=== PATIENT | female | born 1985 | race Caucasian/White ===

== ENCOUNTER 2018-02-12 13:48 | Emergency (ER) | payer OTHER, MEDICAID, SELFPAY | END 2018-02-12 17:52 | disposition home or self-care (01) | PROVIDERS: Emergency Provider Internal Medicine; Family Provider Nurse Practitioner Family; PCP Nurse Practitioner Family; Visit Provider Internal Medicine | DX: K62.5 Hemorrhage of anus and rectum (principal); R10.10 Upper abdominal pain, unspecified; R11.0 Nausea | CPT/HCPCS: 74022; 80053; 83605; 83735; 85025; 96361; 96374; 99058; 99284; J2405 ==

== ENCOUNTER → 2018-04-14 13:52 | Outpatient (CLI) | payer OTHER, MEDICAID, SELFPAY ==
--- NOTE | 2018-04-14 | DI.MRI.S_ITS ---
PROCEDURE: MR ANGIO NECK W CON INDICATIONS: VASCULITIS TECHNIQUE: Axial and sagittal TruFISP through the neck. Coronal dynamic MRA after the administration of contrast in the arterial and venous phases, with rotating 3-dimensional maximum intensity projection (MIP) reformats constructed from subtraction images. COMPARISON: None. FINDINGS: Image quality: Limited by patient motion. Carotid system: Great vessels demonstrate conventional anatomy as they arise from the aortic arch. The origins of the common carotid arteries appear normal. The calibers and courses of the common carotid arteries are likewise normal. The carotid bifurcations appear normal bilaterally. The internal carotid arteries are widely patent up to the [place]. Posterior circulation: The origins of the vertebral arteries are unremarkable. The more superior portions of the vertebral arteries demonstrate normal course and caliber. Vertebral arteries join to form a normal appearing basilar artery. Miscellaneous: Subclavian arteries are patent throughout. Pre-contrast images through the neck demonstrate no soft tissue abnormalities. IMPRESSION: Normal MR angiogram of the neck. Any quantitative measurements of stenosis were performed using NASCET criteria. Dictated by: Jaci Hua MD, PhD on 04/14/2018 at 15:00 Approved by: Jaci Hua MD, PhD on 04/14/2018 at 15:03
== END ==
PROVIDERS: Family Provider Psychiatry & Neurology Neurology; PCP Nurse Practitioner Family; Visit Provider Internal Medicine Rheumatology
DX: I77.6 Arteritis, unspecified (principal)
CPT/HCPCS: 70548

== ENCOUNTER → 2018-04-26 15:41 | Outpatient (CLI) | payer OTHER, MEDICAID, SELFPAY ==
--- NOTE | 2018-04-26 | DI.MRI.S_ITS ---
PROCEDURE: MR ANGIO CHEST WO/W CON INDICATIONS: VASCULITIS LIMITED TO SKIN TECHNIQUE: Precontrast axial, coronal, and sagittal TruFISP acquired through the thoracic aorta. Dynamic coronal MRA using Care Bolus timing of the thorax during the administration of contrast, with 3-dimensional maximum intensity projection (MIP) reformats performed. COMPARISON: None. FINDINGS: Image quality: Motion artifact limits evaluation of the ascending thoracic aorta. Thoracic aorta: The thoracic aorta demonstrates normal course and caliber. No annuloaortic ectasia. No neural hematomas or wall thickening. Great vessels: The great vessels demonstrate conventional anatomy of the right from the arch. No stenosis or occlusion. No aneurysmal dilatation. Extravascular structures: A T2 hyperintense lesion is present within the left renal cortex. There is no enhancement associated with this region suggesting the presence of a simple renal cyst. Extravascular tissues are otherwise unremarkable. IMPRESSION: 1. Normal course and caliber of the thoracic aorta. No findings to suggest annuloaortic ectasia, aneurysmal dilatation, or suspicious wall thickening in the setting of large vessel left vasculitis. However, please note that visualization of the ascending thoracic aorta somewhat limited by motion artifact. Dictated by: Vee Bazan M.D. on 04/26/2018 at 15:15 Approved by: Vee Bazan M.D. on 04/26/2018 at 16:03
== END ==
PROVIDERS: Family Provider Psychiatry & Neurology Neurology; PCP Nurse Practitioner Family; Visit Provider Internal Medicine Rheumatology
DX: L95.9 Vasculitis limited to the skin, unspecified (principal)
CPT/HCPCS: C8911; A9579

== ENCOUNTER → 2018-06-17 13:57 | Outpatient (CLI) | payer OTHER, MEDICAID, SELFPAY ==
[2018-06-17 15:21] LABS: Alanine Aminotransferase 15 IU/L (9-52); Albumin Globulin Ratio 0.9 (1.0-2.8); Alkaline Phosphatase 133 U/L (38-126); Aspartate Aminotransferase 18 IU/L (14-36); BUN Creatinine Ratio 13.3 (6-22); Bilirubin Total 0.4 mg/dL (0.2-1.3); Blood Urea Nitrogen 8 mg/dL (7-17); Calcium 9.5 mg/dL (8.4-10.2); Carbon Dioxide 28 mmol/L (22-32); Chloride 98 mmol/L (98-107); Estimated Glomerular Filt Rate > 60.0 mL/min (>60); Globulin 3.5 g/dL (1.7-4.1); Glucose 118 mg/dL (70-100); HEMOLYSIS < 15 (0-50); Potassium 4.2 mmol/L (3.4-5.1); Sodium 137 mmol/L (137-145); Total Protein 6.5 g/dL (6.3-8.2)
== END ==
PROVIDERS: PCP Psychiatry & Neurology Neurology; Visit Provider Internal Medicine Rheumatology
DX: M12.9 Arthropathy, unspecified (principal)
CPT/HCPCS: 36415; 80053

== ENCOUNTER → 2018-06-28 11:15 | Outpatient (CLI) | payer OTHER, MEDICAID, SELFPAY ==
--- NOTE | 2018-06-28 | DI.MRI.S_ITS ---
PROCEDURE: MR PELIS WO/W CON INDICATIONS: PRIMARY OSTEOARTHRITIS OF RIGHT HAND AUTOIMMUNE DI TECHNIQUE: Noncontrast axial and oblique coronal T1 spin echo and STIR through the sacroiliac joints. COMPARISON: None. FINDINGS: Image quality: Diagnostic. Bones: There is mild periarticular edema and enhancement along the left sacroiliac joint as well as mild enhancement in the joint space. There are small areas of effacement of the cortex suggestive of small erosions. There is minimal enhancement in the right sacroiliac joint. No bony ankylosis. There is mild edema and enhancement posteriorly along the posterior iliac bones. Soft tissues: No presacral masses. Visualized bowel loops appear normal in caliber and wall thickness. No pathologic free pelvic fluid. IMPRESSION: 1. Mild periarticular edema and enhancement along the left sacroiliac joint compatible with acute inflammatory changes of sacroiliitis. There are small areas of cortical indistinctness suggestive of erosions. 2. Minimal right sacroiliac joint enhancement suggestive of minimal sacroiliitis. 3. Bilateral mild edema and enhancement along the posterior iliac bones likely represent enthesitis. Dictated by: Jeremiah Rangel M.D. on 06/28/2018 at 16:23 Approved by: Jeremiah Rangel M.D. on 06/28/2018 at 16:47
--- NOTE | 2018-06-28 | DI.MRI.S_ITS ---
PROCEDURE: MR HAND RT WO/W CON INDICATIONS: PRIMARY OSTEOARTHRITIS OF RIGHT HAND AUTOIMMUNE DI TECHNIQUE: Noncontrast coronal and axial T1 spin echo and T2 fast spin echo obtained through the hand and fingers. Post-contrast axial and coronal T1 spin echo with fat saturation through the hand and fingers. COMPARISON: None. FINDINGS: Image quality: There is inhomogeneous fat saturation. Bones: No fractures or dislocations. No definite discrete bony erosion. Synovium: There is periarticular soft tissue thickening with edema and enhancement along the carpus consistent with synovitis. Soft tissues: There is peritendinous edema and enhancement along the extensor tendons compatible with peritendinitis. Mild periarticular edema is noted at the 1st carpometacarpal joint likely degenerative changes. Visualized muscles demonstrate normal bulk and internal signal. IMPRESSION: 1. Periarticular soft tissue thickening with edema and enhancement around the carpus. 2. Peritendinitis along the extensor tendons. 3. The findings are suggestive of an inflammatory arthropathy such as rheumatoid arthritis. No definite discrete bony erosions. Dictated by: Jeremiah Rangel M.D. on 06/28/2018 at 17:03 Approved by: Jeremiah Rangel M.D. on 06/28/2018 at 17:08
== END ==
PROVIDERS: PCP Psychiatry & Neurology Neurology; Visit Provider Internal Medicine Rheumatology
DX: M19.041 Primary osteoarthritis, right hand (principal); M46.1 Sacroiliitis, not elsewhere classified; M77.9 Enthesopathy, unspecified; D89.89 Other specified disorders involving the immune mechanism, not elsewhere classified
CPT/HCPCS: 72197; 73220; A9579

== ENCOUNTER 2018-09-09 15:18 | Inpatient (IN) | payer OTHER, MEDICAID, SELFPAY ==
[2018-09-09] VITALS (11 sets, daily range): BP systolic 105–136; BP diastolic 72–96; PULSE 86–131; RESP 16–25; TEMP 36.7–37.3; O2SAT 95–98; BMI 28.1
--- NOTE | 2018-09-09 15:24 | ED.DIZZY ---
HPI - Dizziness <JOLENE Murphy - Last Filed: 09/09/18 22:00> General Chief Complaint: Dizziness Stated Complaint: FEELING WEIRED GOT REALLY DIZZY Time Seen by Provider: 09/09/18 15:23 Source: patient Mode of arrival: ambulatory Limitations: no limitations History of Present Illness HPI Narrative: 33-year-old female with history of asthma and is a nonsmoker here for complaint of having dizziness and feeling of that she was going to pass out earlier today. She states that yesterday she started feeling like her heart was pounding. She went shopping today and while she was shopping she states that she had a brief. Where she felt like she was going to pass out and had some dizziness. She states that she has had a headache on and off over the past several days. She did not have a headache at this time. She states she has also had left flank pain and felt like she has been having to urinate more often. No chest pain no shortness of breath. No fevers or chills. Positive p.o. intake. She denies any abdominal pain at this time. She does use [place] for chronic pain to her knees and she does state that she did take a [place] earlier today. complaint: dizziness and lightheadedness Related Data Home Medications Medication Instructions Recorded Confirmed acetaminophen [Mapap Arthritis 650 mg PO TID 09/09/18 09/09/18 Pain] albuterol sulfate [ProAir HFA] 1 puff INHALATION PRN PRN 09/09/18 09/09/18 cetirizine 10 mg PO DAILY 09/09/18 09/09/18 pregabalin [Lyrica] 225 mg PO BID 09/09/18 09/09/18 Allergies Allergy/AdvReac Type Severity Reaction Status Date / Time ibuprofen [IBUPROFEN] Allergy Severe severe Verified 09/09/18 15:30 headaches vancomycin [VANCOMYCIN] Allergy Severe martha Verified 09/09/18 15:30 cephalexin [From KEFLEX] Allergy Unknown Verified 09/09/18 15:30 fluoxetine [From PROZAC] Allergy Unknown Verified 09/09/18 15:30 Sulfa (Sulfonamide AdvReac Mild CONSTIPATIO Verified 09/09/18 15:30 Antibiotics) N [SULFA (SULFONAMIDE ANTIBIOTICS)] aspirin [ASPIRIN] AdvReac Unknown SINCE Verified 09/09/18 15:30 CHILDHOOD UNKNOWN NSAIDS (Non-Steroidal AdvReac Gastrointestinal Verified 09/09/18 23:16 Anti-Inflamma Upset Review of Systems <JOLENE Murphy - Last Filed: 09/09/18 22:00> Constitutional Denies chills, Denies fatigue, Denies fever(s), Denies lethargy and Denies weakness Eyes Denies change in vision, Denies eye discharge, Denies irritation and Denies loss of vision ENT Ears, Nose, Mouth, and Throat: Denies change in voice, Denies neck pain, Denies sore throat and Denies throat swelling Cardiovascular Comments: Dizziness and presyncope Respiratory Denies wheezing Gastrointestinal Gastrointestinal: Denies abdominal pain, Denies change in bowel habits, Denies diarrhea, Denies nausea and Denies vomiting Genitourinary Denies hematuria, Reports urinary frequency, Reports flank pain, Denies urinary incontinence and Denies urinary urgency Comments: Left flank pain Musculoskeletal Denies neck pain Integumentary/Breasts Denies pruritus, Denies erythema, Denies rash and Denies wounds Neurologic Denies confusion, Denies loss of vision and Denies weakness Psychiatric Denies anxiety, Denies confusion, Denies depression, Denies homicidal ideation and Denies suicidal ideation Endocrine Denies fatigue and Denies flushing Hematologic/Lymphatic Denies easy bruising Allergic/Immunologic Denies urticaria, Denies throat swelling and Denies wheezing Exam <JOLENE Murphy - Last Filed: 09/09/18 22:00> Initial Vital Signs Initial Vital Signs: Vital Signs Temperature 98.1 F 09/09/18 15:30 Pulse Rate 121 H 09/09/18 15:30 Respiratory Rate 25 H 09/09/18 15:30 Blood Pressure 125/96 H 09/09/18 15:30 Pulse Oximetry 98 09/09/18 15:30 Const General: cooperative and well developed Nutritional Appearance: well nourished Orientation: alert, awake, oriented x3 and not confused [facility] Mouth: oral mucosae normal and moist mucous membranes Eyes Conjunctivae: conjunctivae normal Sclera: sclerae normal Pupils: PERRL EOM: EOM intact bilaterally Resp Effort & Inspection: normal respiratory effort, able to speak in complete sentences, no respiratory distress and no use of accessory muscles Auscultation: clear to auscultation bilaterally, no rales, no rhonchi and no wheezes Cardio Rate: regular rate Rhythm: regular rhythm Heart Sounds: no click, no gallops, no murmurs and no rubs Pulses: normal peripheral pulses GI Inspection: non-distended Palpation: soft, no hepatosplenomegaly, No guarding, No pulsatile mass and No tender Auscultation: normal bowel sounds General: No CVA tenderness Skin General: no rashes or lesions noted, No jaundice and No petechiae Neuro General: alert, oriented x3, gait normal and no focal motor deficits Speech: speech normal <Farnaz Agee DO - Last Filed: 09/10/18 01:11> Initial Vital Signs Initial Vital Signs: Vital Signs Temperature 98.1 F 09/09/18 15:30 Pulse Rate 121 H 09/09/18 15:30 Respiratory Rate 25 H 09/09/18 15:30 Blood Pressure 125/96 H 09/09/18 15:30 Pulse Oximetry 98 09/09/18 15:30 Course <JOLENE Murphy - Last Filed: 09/09/18 22:00> Orders Ordered: ED Orders 09/09/18 16:30 Complete Blood Count AUTO DIFF Stat Comprehensive Metabolic Panel Stat D Dimer Stat Lipase Stat Troponin & CK Cardiac Panel Stat 09/09/18 17:47 CT angio chest PE protocol Stat 09/09/18 17:50 Urine Culture Stat Urine Microscopic Stat 09/09/18 19:42 CT abdomen pelvis w con Stat 09/09/18 20:06 Lactate (Lactic Acid) Stat Procalcitonin Stat 09/09/18 20:14 Blood Culture Stat 09/09/18 21:56 Consult to Physician Routine Hydromorphone HCl (Dilaudid) 2 mg IV Q4HR PRN PRN Reason: Pain, Moderate (4-6) Last Admin: 09/10/18 00:02 Dose: 2 mg Sodium Chloride (Normal Saline 0.9%) 1,000 mls @ 125 mls/hr IV CONT MARISSA Metronidazole (Flagyl) 500 mg in 100 mls @ 100 mls/hr IV Q6H MARISSA Last Admin: 09/10/18 00:11 Dose: 100 mls/hr Ondansetron HCl (Zofran) 4 mg IV Q4HR PRN PRN Reason: Nausea And Vomiting Discontinued Medications Hydromorphone HCl (Dilaudid) 1 mg IV NOW ONE Stop: 09/09/18 19:43 Last Admin: 09/09/18 19:52 Dose: 1 mg Sodium Chloride (Normal Saline 0.9%) 1,000 mls @ 1,000 mls/hr IV BOLUS ONE Stop: 09/09/18 17:08 Last Infusion: 09/09/18 18:02 Dose: 0 mls/hr Admin: 09/09/18 16:43 Dose: 1,000 mls/hr Sodium Chloride (Normal Saline 0.9%) 1,000 mls @ 1,000 mls/hr IV BOLUS ONE Stop: 09/09/18 20:37 Last Admin: 09/09/18 19:52 Dose: 1,000 mls/hr Levofloxacin (Levaquin) 750 mg in 150 mls @ 100 mls/hr IV NOW ONE Stop: 09/09/18 22:41 Last Infusion: 09/09/18 22:26 Dose: 100 mls/hr Admin: 09/09/18 21:28 Dose: 100 mls/hr Metronidazole (Flagyl) 500 mg in 100 mls @ 100 mls/hr IV Q6H MARISSA Ondansetron HCl (Zofran) 4 mg IV NOW ONE Stop: 09/09/18 19:55 Last Admin: 09/09/18 19:55 Dose: 4 mg Vital Signs - 8 hr 09/09/18 18:00 09/09/18 18:20 09/09/18 18:30 Temperature Pulse Rate 101 H 98 H 96 H Respiratory Rate Blood Pressure Blood Pressure [Right Arm] 136/90 125/87 126/83 Pulse Oximetry 09/09/18 19:00 09/09/18 19:30 09/09/18 20:00 Temperature Pulse Rate 96 H 103 H 86 Respiratory Rate Blood Pressure Blood Pressure [Right Arm] 130/89 126/83 117/72 Pulse Oximetry 09/09/18 20:55 09/09/18 22:15 09/09/18 22:30 Temperature 99.2 F Pulse Rate 116 H 131 H 115 H Respiratory Rate 23 16 Blood Pressure 114/72 Blood Pressure [Right Arm] 109/75 112/86 Pulse Oximetry 96 95 97 <Farnaz Agee DO - Last Filed: 09/10/18 01:11> Orders Ordered: ED Orders 09/09/18 16:30 Complete Blood Count AUTO DIFF Stat Comprehensive Metabolic Panel Stat D Dimer Stat Lipase Stat Troponin & CK Cardiac Panel Stat 09/09/18 17:47 CT angio chest PE protocol Stat 09/09/18 17:50 Urine Culture Stat Urine Microscopic Stat 09/09/18 19:42 CT abdomen pelvis w con Stat 09/09/18 20:06 Lactate (Lactic Acid) Stat Procalcitonin Stat 09/09/18 20:14 Blood Culture Stat 09/09/18 21:56 Consult to Physician Routine Hydromorphone HCl (Dilaudid) 2 mg IV Q4HR PRN PRN Reason: Pain, Moderate (4-6) Last Admin: 09/10/18 00:02 Dose: 2 mg Sodium Chloride (Normal Saline 0.9%) 1,000 mls @ 125 mls/hr IV CONT MARISSA Metronidazole (Flagyl) 500 mg in 100 mls @ 100 mls/hr IV Q6H MARISSA Last Admin: 09/10/18 00:11 Dose: 100 mls/hr Ondansetron HCl (Zofran) 4 mg IV Q4HR PRN PRN Reason: Nausea And Vomiting Discontinued Medications Hydromorphone HCl (Dilaudid) 1 mg IV NOW ONE Stop: 09/09/18 19:43 Last Admin: 09/09/18 19:52 Dose: 1 mg Sodium Chloride (Normal Saline 0.9%) 1,000 mls @ 1,000 mls/hr IV BOLUS ONE Stop: 09/09/18 17:08 Last Infusion: 09/09/18 18:02 Dose: 0 mls/hr Admin: 09/09/18 16:43 Dose: 1,000 mls/hr Sodium Chloride (Normal Saline 0.9%) 1,000 mls @ 1,000 mls/hr IV BOLUS ONE Stop: 09/09/18 20:37 Last Admin: 09/09/18 19:52 Dose: 1,000 mls/hr Levofloxacin (Levaquin) 750 mg in 150 mls @ 100 mls/hr IV NOW ONE Stop: 09/09/18 22:41 Last Infusion: 09/09/18 22:26 Dose: 100 mls/hr Admin: 09/09/18 21:28 Dose: 100 mls/hr Metronidazole (Flagyl) 500 mg in 100 mls @ 100 mls/hr IV Q6H MARISSA Ondansetron HCl (Zofran) 4 mg IV NOW ONE Stop: 09/09/18 19:55 Last Admin: 09/09/18 19:55 Dose: 4 mg Vital Signs - 8 hr 09/09/18 18:00 09/09/18 18:20 09/09/18 18:30 Temperature Pulse Rate 101 H 98 H 96 H Respiratory Rate Blood Pressure Blood Pressure [Right Arm] 136/90 125/87 126/83 Pulse Oximetry 09/09/18 19:00 09/09/18 19:30 09/09/18 20:00 Temperature Pulse Rate 96 H 103 H 86 Respiratory Rate Blood Pressure Blood Pressure [Right Arm] 130/89 126/83 117/72 Pulse Oximetry 09/09/18 20:55 09/09/18 22:15 09/09/18 22:30 Temperature 99.2 F Pulse Rate 116 H 131 H 115 H Respiratory Rate 23 16 Blood Pressure 114/72 Blood Pressure [Right Arm] 109/75 112/86 Pulse Oximetry 96 95 97 MDM - Dizziness <JOLENE Murphy - Last Filed: 09/09/18 22:00> Lab Data Result diagrams: 09/09/18 16:30 09/09/18 16:30 Lab Results 09/09/18 09/09/18 09/09/18 Range/Units 16:30 16:30 16:30 WBC 16.3 H (4.5-11.0) X10^3/uL RBC 4.57 (4.0-5.2) X10^6/uL Hgb 11.6 L (12.0-16.0) g/dL Hct 36.1 (36-46) % MCV 78.9 L (80-100) fL MCH 25.3 L (26-34) PG MCHC 32.1 (30-36) % RDW 16.2 H (11.6-14.8) % Plt Count 634 H (150-400) X10^3/uL Neut % (Auto) 83.3 H (50-75) % Lymph % (Auto) 8.6 L (25-40) % [place] % (Auto) 7.1 (3-14) % Eos % (Auto) 0.6 L (2-4) % Baso % (Auto) 0.4 (0-2) % Neut # (Auto) 00956 H (3322-7000) /uL D-Dimer 494 H (<230) ng/mL Sodium 136 L (137-145) mmol/L Potassium 3.7 (3.4-5.1) mmol/L Chloride 100 (98-107) mmol/L Carbon Dioxide 26 (22-32) mmol/L BUN 8 (7-17) mg/dL Creatinine 0.60 (0.52-1.04) mg/dL Estimated GFR > 60.0 (>60) mL/min BUN/Creatinine Ratio 13.3 (6-22) Glucose 130 H (70-100) mg/dL Lactate (0.7-2.1) mmol/L Calcium 9.0 (8.4-10.2) mg/dL Total Bilirubin 0.4 (0.2-1.3) mg/dL AST 20 (14-36) IU/L ALT 13 (9-52) IU/L Alkaline Phosphatase 143 H (38-126) U/L Total Creatine Kinase < 20 L (30-135) U/L CK-MB (CK-2) TNP CK-MB (CK-2) Rel Index TNP Troponin I < 0.012 (0.01-0.034) ng/mL Total Protein 6.9 (6.3-8.2) g/dL Albumin 3.1 L (3.5-5.0) g/dL Globulin 3.8 (1.7-4.1) g/dL Albumin/Globulin Ratio 0.8 L (1.0-2.8) Lipase 20 L (23-300) U/L Procalcitonin (<0.5) ng/mL Urine RBC (0-5/HPF) Urine WBC (0-5/HPF) Urine Bacteria (None) Urine Mucus (Negative) Ur Culture Indicated? Micro UA Comment 09/09/18 09/09/18 09/09/18 Range/Units 17:50 20:06 20:06 WBC (4.5-11.0) X10^3/uL RBC (4.0-5.2) X10^6/uL Hgb (12.0-16.0) g/dL Hct (36-46) % MCV (80-100) fL MCH (26-34) PG MCHC (30-36) % RDW (11.6-14.8) % Plt Count (150-400) X10^3/uL Neut % (Auto) (50-75) % Lymph % (Auto) (25-40) % [place] % (Auto) (3-14) % Eos % (Auto) (2-4) % Baso % (Auto) (0-2) % Neut # (Auto) (7133-1964) /uL D-Dimer (<230) ng/mL Sodium (137-145) mmol/L Potassium (3.4-5.1) mmol/L Chloride (98-107) mmol/L Carbon Dioxide (22-32) mmol/L BUN (7-17) mg/dL Creatinine (0.52-1.04) mg/dL Estimated GFR (>60) mL/min BUN/Creatinine Ratio (6-22) Glucose (70-100) mg/dL Lactate 0.8 (0.7-2.1) mmol/L Calcium (8.4-10.2) mg/dL Total Bilirubin (0.2-1.3) mg/dL AST (14-36) IU/L ALT (9-52) IU/L Alkaline Phosphatase (38-126) U/L Total Creatine Kinase (30-135) U/L CK-MB (CK-2) CK-MB (CK-2) Rel Index Troponin I (0.01-0.034) ng/mL Total Protein (6.3-8.2) g/dL Albumin (3.5-5.0) g/dL Globulin (1.7-4.1) g/dL Albumin/Globulin Ratio (1.0-2.8) Lipase (23-300) U/L Procalcitonin 0.05 (<0.5) ng/mL Urine RBC None seen (0-5/HPF) Urine WBC 10-30/hpf H (0-5/HPF) Urine Bacteria None seen (None) Urine Mucus 3+ H (Negative) Ur Culture Indicated? Specimen cultured Micro UA Comment Not Reportable Point of Care Testing Test Results Negative Urine Dip Bedside Urine Glucose Negative Bedside Urine Bilirubin - Negative Bedside Urine Ketone - Negative Urine Specific [place] 1.025 Bedside Urine Occult Blood +/- Bedside Urine pH 6.0 Bedside Urine Protein +/- 15 Bedside Urine Urobilinogen - Negative Bedside Urine Nitrite - Negative Bedside Urine Leukocytes + [address] scan - head: My impression: [address] [address] XRay Report Signed Patient: Zaina Yeboah LMR#: [id number] : 1985Acct:[id number] Age/Sex: 33 / FDate of Service: 09/09/18 Loc: ED Accession Number: [id number] Procedure: XR chest 1V Ordering Provider: Turner Esquivel PROCEDURE: XR CHEST 1V INDICATIONS: Dizziness with elevated heart rate TECHNIQUE: One view of the chest was acquired. COMPARISON: Outside Film, CR, XR CHEST 2 VIEWS, 03/22/2018, 0:09. FINDINGS: Surgical changes and devices: None. Lungs and pleura: No pleural effusions or pneumothorax. Lungs are clear. Mediastinum: Mediastinal contours appear normal. Heart size is normal. Bones and chest wall: No suspicious bony lesions. Overlying soft tissues appear unremarkable. IMPRESSION: Negative chest. No acute cardiopulmonary process is evident. Dictated by: Mick Jimenez M.D. on 09/09/2018 at 16:00 Approved by: Mick Jimenez M.D. on 09/09/2018 at 16:01 Radiologist's impression: [address] [address] [address] Scan Report Signed Patient: Zaina Yeboah LMR#: [id number] : 1985Acct:[id number] Age/Sex: 33 / FDate of Service: 09/09/18 Loc: ED Accession Number: [id number] Procedure: CT head/brain wo con Ordering Provider: Turner Esquivel PROCEDURE: CT HEAD/BRAIN WO CON INDICATIONS: Dizziness elevated heart rate occasional headache TECHNIQUE: Noncontrast 4.5 mm thick angled axial sections acquired from the foramen magnum to the vertex, with coronal and sagittal reformats. For radiation dose reduction, the following was used: automated exposure control, adjustment of mA and/or kV according to patient size. COMPARISON: [facility], CT, CT ANGIO BRAIN, 08/26/2016, 16:15. [facility], MR, BRAIN W&W/O CONTRAST, 08/21/2013, 11:29. FINDINGS: Image quality: Excellent. CSF spaces: Basal cisterns are patent. No extra-axial fluid collections. Ventricles are normal in size and shape. Brain: No midline shift. No intracranial masses or hemorrhage. Interiano-white matter interface is normal. The cerebellar tonsils appear to be low lying and may extend approximately 3-5 mm below the level of the foramen magnum. This is not completely included on this examination, however. Skull and face: Calvarium and visualized facial bones are intact, without suspicious lesions. Sinuses: Visualized sinuses and mastoids are clear. IMPRESSION: 1. No acute intracranial hemorrhage. 2. Low lying cerebellar tonsils may represent a Chiari malformation. This area is not completely included on this study. Dictated by: Mick Jimenez M.D. on 09/09/2018 at 15:31 Approved by: Mick Jimenez M.D. on 09/09/2018 at 15:33 CT scan - abdomen: Radiologist's impression: [address] [place] [address] CT Scan Report Signed Patient: Zaina Yeboah LMR#: [id number] : 1985Acct:[id number] Age/Sex: 33 / FDate of Service: 09/09/18 Loc: ED Accession Number: [id number] Procedure: CT abdomen pelvis w con Ordering Provider: Turner Esquivel PROCEDURE: CT ABDOMEN PELVIS W CON INDICATIONS: pain into her right upper quadrant and elevated white count TECHNIQUE: After the administration of intravenous contrast, 5 mm thick sections acquired from the diaphragm to the symphysis. 5 mm coronal and sagittal reformats were acquired. For radiation dose reduction, the following was used: automated exposure control, adjustment of mA and/or kV according to patient size. COMPARISON: None. FINDINGS: Image quality: Excellent. ABDOMEN: Lung bases: Lung bases are clear. Heart size is normal. Solid organs: Liver is normal in size and enhancement. Gallbladder has been previously resected. Biliary system is non dilated. Pancreas enhances normally. Spleen is normal in size and enhancement. No adrenal nodules. Kidneys demonstrate normal size and enhancement, without hydronephrosis. There is a subcentimeter water density cyst at the posterior border of the right mid kidney, and a similar water density cyst that measures up to 1.4 cm in maximal dimension at the lateral cortex of the left mid kidney. Peritoneum and bowel: Bowel loops demonstrate normal wall thickness and caliber. No free fluid or air. At the right upper quadrant and immediately below the ascending colon and hepatic flexure of the right colon shows mild mural thickening and at least one diverticulum. Mild pericolonic edema is associated. Nodes and vessels: No retroperitoneal or mesenteric adenopathy by size criteria. Aorta and inferior vena cava are normal in size. Miscellaneous: No ventral hernias. PELVIS: Genitourinary: Bladder wall thickness is normal. Miscellaneous: No inguinal hernias or adenopathy. Bones: No suspicious bony lesions. No vertebral body compression fractures. IMPRESSION: Right upper abdomen ascending colon and hepatic flexure mild mural thickening with adjacent pericolonic mild edema in a pattern either representing mild colitis or focal mild acute diverticulitis without peridiverticular abscess. Prior cholecystectomy, no biliary distention. No urinary tract stone suspected. Dictated by: Cristopher Ortega M.D. on 09/09/2018 at 21:22 Approved by: Cristopher Ortega M.D. on 09/09/2018 at 21:25 ECG Data Interpretation: EKG shows sinus tachycardia with no ST elevation or depression. No ectopy. Ventricular rate of 109. Pr interval of 158. QRS 87. QTC 302 MDM Narrative Medical decision making narrative: Patient presents with tachycardia today. The EKG shows sinus tachycardia no ST elevation or depression. No ectopy. CBC shows elevated white count of 16 K. CBC shows also elevated neutrophils. Chem panel lipase were obtained were unremarkable. Due to headache and presyncopal episode CT of the head was obtained was negative for any acute findings. Possible Chiari formations are seen. Chest x-ray was obtained was negative for any acute findings. D-dimer resulted at [address] PE protocol was obtained and was negative for PE. Try to reduce heart rate with fluids however this did not work patient's heart rate remained tachycardic through the ER visit today. Urinalysis indicates urinary tract infection and with left flank pain suspect that she has starting kidney infection. She was started on level floxacillin in the emergency room. Patient then suddenly started complaining of a significant right upper quadrant pain that was not present prior. CT of the abdomen was obtained and shows findings consistent with other colitis or possible diverticulitis. She is also prescribed metronidazole. Discussed case with Dr. Iniguez to call hospitalist who accepted patient for admission for further observation and treatment. <Farnaz Agee, DO - Last Filed: 09/10/18 01:11> Lab Data Lab Results 09/09/18 09/09/18 09/09/18 Range/Units 16:30 16:30 16:30 WBC 16.3 H (4.5-11.0) X10^3/uL RBC 4.57 (4.0-5.2) X10^6/uL Hgb 11.6 L (12.0-16.0) g/dL Hct 36.1 (36-46) % MCV 78.9 L (80-100) fL MCH 25.3 L (26-34) PG MCHC 32.1 (30-36) % RDW 16.2 H (11.6-14.8) % Plt Count 634 H (150-400) X10^3/uL Neut % (Auto) 83.3 H (50-75) % Lymph % (Auto) 8.6 L (25-40) % [place] % (Auto) 7.1 (3-14) % Eos % (Auto) 0.6 L (2-4) % Baso % (Auto) 0.4 (0-2) % Neut # (Auto) 38041 H (1278-5359) /uL D-Dimer 494 H (<230) ng/mL Sodium 136 L (137-145) mmol/L Potassium 3.7 (3.4-5.1) mmol/L Chloride 100 (98-107) mmol/L Carbon Dioxide 26 (22-32) mmol/L BUN 8 (7-17) mg/dL Creatinine 0.60 (0.52-1.04) mg/dL Estimated GFR > 60.0 (>60) mL/min BUN/Creatinine Ratio 13.3 (6-22) Glucose 130 H (70-100) mg/dL Lactate (0.7-2.1) mmol/L Calcium 9.0 (8.4-10.2) mg/dL Total Bilirubin 0.4 (0.2-1.3) mg/dL AST 20 (14-36) IU/L ALT 13 (9-52) IU/L Alkaline Phosphatase 143 H (38-126) U/L Total Creatine Kinase < 20 L (30-135) U/L CK-MB (CK-2) TNP CK-MB (CK-2) Rel Index TNP Troponin I < 0.012 (0.01-0.034) ng/mL Total Protein 6.9 (6.3-8.2) g/dL Albumin 3.1 L (3.5-5.0) g/dL Globulin 3.8 (1.7-4.1) g/dL Albumin/Globulin Ratio 0.8 L (1.0-2.8) Lipase 20 L (23-300) U/L Procalcitonin (<0.5) ng/mL Urine RBC (0-5/HPF) Urine WBC (0-5/HPF) Urine Bacteria (None) Urine Mucus (Negative) Ur Culture Indicated? Micro UA Comment 09/09/18 09/09/18 09/09/18 Range/Units 17:50 20:06 20:06 WBC (4.5-11.0) X10^3/uL RBC (4.0-5.2) X10^6/uL Hgb (12.0-16.0) g/dL Hct (36-46) % MCV (80-100) fL MCH (26-34) PG MCHC (30-36) % RDW (11.6-14.8) % Plt Count (150-400) X10^3/uL Neut % (Auto) (50-75) % Lymph % (Auto) (25-40) % [place] % (Auto) (3-14) % Eos % (Auto) (2-4) % Baso % (Auto) (0-2) % Neut # (Auto) (8078-1404) /uL D-Dimer (<230) ng/mL Sodium (137-145) mmol/L Potassium (3.4-5.1) mmol/L Chloride (98-107) mmol/L Carbon Dioxide (22-32) mmol/L BUN (7-17) mg/dL Creatinine (0.52-1.04) mg/dL Estimated GFR (>60) mL/min BUN/Creatinine Ratio (6-22) Glucose (70-100) mg/dL Lactate 0.8 (0.7-2.1) mmol/L Calcium (8.4-10.2) mg/dL Total Bilirubin (0.2-1.3) mg/dL AST (14-36) IU/L ALT (9-52) IU/L Alkaline Phosphatase (38-126) U/L Total Creatine Kinase (30-135) U/L CK-MB (CK-2) CK-MB (CK-2) Rel Index Troponin I (0.01-0.034) ng/mL Total Protein (6.3-8.2) g/dL Albumin (3.5-5.0) g/dL Globulin (1.7-4.1) g/dL Albumin/Globulin Ratio (1.0-2.8) Lipase (23-300) U/L Procalcitonin 0.05 (<0.5) ng/mL Urine RBC None seen (0-5/HPF) Urine WBC 10-30/hpf H (0-5/HPF) Urine Bacteria None seen (None) Urine Mucus 3+ H (Negative) Ur Culture Indicated? Specimen cultured Micro UA Comment Not Reportable Point of Care Testing Test Results Negative Urine Dip Bedside Urine Glucose Negative Bedside Urine Bilirubin - Negative Bedside Urine Ketone - Negative Urine Specific [place] 1.025 Bedside Urine Occult Blood +/- Bedside Urine pH 6.0 Bedside Urine Protein +/- 15 Bedside Urine Urobilinogen - Negative Bedside Urine Nitrite - Negative Bedside Urine Leukocytes + 70 Esterase Discharge Plan Departure Patient Disposition: Admitted As Inpatient Clinical Impression: Pyelonephritis, Colitis Discharge Date/Time: 09/09/18 22:27 Interventions: ED Discharge Assessment Last Done: 09/09/18 22:26 Admit Date/Time: 09/09/18 22:13 Admit Provider: Leslie Quinn Lucas <Farnaz Agee DO - Last Filed: 09/10/18 01:11> Cosign ED Attending Chante Attestation: I was immediately available in the department for consultation. This documentation has been reviewed and I agree with assessment and plan. Supervised by Farnaz Agee DO
--- NOTE | 2018-09-09 16:09 | DI.RAD.S_ITS ---
PROCEDURE: XR CHEST 1V INDICATIONS: Dizziness with elevated heart rate TECHNIQUE: One view of the chest was acquired. COMPARISON: Outside Film, CR, XR CHEST 2 VIEWS, 03/22/2018, 0:09. FINDINGS: Surgical changes and devices: None. Lungs and pleura: No pleural effusions or pneumothorax. Lungs are clear. Mediastinum: Mediastinal contours appear normal. Heart size is normal. Bones and chest wall: No suspicious bony lesions. Overlying soft tissues appear unremarkable. IMPRESSION: Negative chest. No acute cardiopulmonary process is evident. Dictated by: Mick Jimenez M.D. on 09/09/2018 at 16:00 Approved by: Mick Jimenez M.D. on 09/09/2018 at 16:01
--- NOTE | 2018-09-09 16:09 | DI.CT.S_ITS ---
PROCEDURE: CT HEAD/BRAIN WO CON INDICATIONS: Dizziness elevated heart rate occasional headache TECHNIQUE: Noncontrast 4.5 mm thick angled axial sections acquired from the foramen magnum to the vertex, with coronal and sagittal reformats. For radiation dose reduction, the following was used: automated exposure control, adjustment of mA and/or kV according to patient size. COMPARISON: [facility], CT, CT ANGIO BRAIN, 08/26/2016, 16:15. [facility], MR, BRAIN W&W/O CONTRAST, 08/21/2013, 11:29. FINDINGS: Image quality: Excellent. CSF spaces: Basal cisterns are patent. No extra-axial fluid collections. Ventricles are normal in size and shape. Brain: No midline shift. No intracranial masses or hemorrhage. Interiano-white matter interface is normal. The cerebellar tonsils appear to be low lying and may extend approximately 3-5 mm below the level of the foramen magnum. This is not completely included on this examination, however. Skull and face: Calvarium and visualized facial bones are intact, without suspicious lesions. Sinuses: Visualized sinuses and mastoids are clear. IMPRESSION: 1. No acute intracranial hemorrhage. 2. Low lying cerebellar tonsils may represent a Chiari malformation. This area is not completely included on this study. Dictated by: Mick Jimenez M.D. on 09/09/2018 at 15:31 Approved by: Mick Jimenez M.D. on 09/09/2018 at 15:33
[2018-09-09] MEDS: SODIUM CHLORIDE 0.9% 1,000 ML 1000 ML IV ×2 (16:43→19:52)
[2018-09-09 17:01] LABS: Add Manual Diff / Slide Review NO; Basophils Percent Auto 0.4 % (0-2); Eosinophils Percent Auto 0.6 % (2-4); Hematocrit 36.1 % (36-46); Hemoglobin 11.6 g/dL (12.0-16.0); Lymphocytes Percent Auto 8.6 % (25-40); Mean Corpuscular HGB Conc 32.1 % (30-36); Mean Corpuscular Hemoglobin 25.3 PG (26-34); Mean Corpuscular Volume 78.9 fL (80-100); Monocytes Percent Auto 7.1 % (3-14); Neutrophils Absolute Auto 13600 /uL (3000-5900); Neutrophils Percent Auto 83.3 % (50-75); Platelet Count 634 X10^3/uL (150-400); Red Blood Cell Count 4.57 X10^6/uL (4.0-5.2); Red Cell Distribution Width 16.2 % (11.6-14.8); White Blood Cell Count 16.3 X10^3/uL (4.5-11.0)
[2018-09-09 17:06] LABS: Alanine Aminotransferase 13 IU/L (9-52); Albumin 3.1 g/dL (3.5-5.0); Albumin Globulin Ratio 0.8 (1.0-2.8); Alkaline Phosphatase 143 U/L (38-126); Aspartate Aminotransferase 20 IU/L (14-36); BUN Creatinine Ratio 13.3 (6-22); Bilirubin Total 0.4 mg/dL (0.2-1.3); Blood Urea Nitrogen 8 mg/dL (7-17); Carbon Dioxide 26 mmol/L (22-32); Chloride 100 mmol/L (98-107); Creatine Kinase < 20 U/L (30-135); Estimated Glomerular Filt Rate > 60.0 mL/min (>60); Globulin 3.8 g/dL (1.7-4.1); Glucose 130 mg/dL (70-100); Lipase 20 U/L (23-300); Sodium 136 mmol/L (137-145); Total Protein 6.9 g/dL (6.3-8.2)
[2018-09-09 17:17] LABS: D Dimer 494 ng/mL (<230)
[2018-09-09 17:29] LABS: HEMOLYSIS 37 (0-50); Potassium 3.7 mmol/L (3.4-5.1)
[2018-09-09 17:33] LABS: Troponin I < 0.012 ng/mL (0.01-0.034)
--- NOTE | 2018-09-09 17:47 | DI.CT.S_ITS ---
PROCEDURE: CT ANGIO CHEST PE PROTOCOL INDICATIONS: Elevated heart rate and elevated D-dimer TECHNIQUE: After the administration of intravenous contrast, 2 mm thick sections acquired from the pulmonary apices to the posterior costophrenic angles. 3-dimensional maximum intensity projection (MIP) coronal and sagittal reformats were then acquired through the thorax. For radiation dose reduction, the following was used: automated exposure control, adjustment of mA and/or kV according to patient size. COMPARISON: None. FINDINGS: Image quality: Excellent. Pulmonary arteries: Pulmonary arteries are normal in size, and demonstrate no intraluminal filling defects to suggest central pulmonary embolism. Lungs and pleura: Lungs are clear. No pleural effusions or pneumothorax. Central and peripheral airways are patent. Mediastinum: Heart size is normal, without pericardial effusion. No mediastinal or hilar adenopathy. Thoracic aorta is normal in caliber and enhancement. Esophagus is normal in caliber, without hiatal hernia. Bones and chest wall: No suspicious bony lesions. Ribs and thoracic spine appear intact throughout. Thyroid gland appears normal are well visualized. No axillary or supraclavicular adenopathy. Abdomen: Visualized upper abdominal solid organs appear normal in the early arterial phase of enhancement. IMPRESSION: No pulmonary embolus seen, source of current symptoms is not found. Dictated by: Cristopher Ortega M.D. on 09/09/2018 at 19:13 Approved by: Cristopher Ortega M.D. on 09/09/2018 at 19:16
[2018-09-09 18:00] LABS: Bacteria Urine None Seen; RBC Urine None Seen (0-5/HPF)
[2018-09-09 18:19] LABS: WBC Urine 10-30/HPF (0-5/HPF)
[2018-09-09 18:20] LABS: Culture Indicated Urine Specimen Cultured; Mucus Urine 3+ (Negative)
--- NOTE | 2018-09-09 19:42 | DI.CT.S_ITS ---
PROCEDURE: CT ABDOMEN PELVIS W CON INDICATIONS: pain into her right upper quadrant and elevated white count TECHNIQUE: After the administration of intravenous contrast, 5 mm thick sections acquired from the diaphragm to the symphysis. 5 mm coronal and sagittal reformats were acquired. For radiation dose reduction, the following was used: automated exposure control, adjustment of mA and/or kV according to patient size. COMPARISON: None. FINDINGS: Image quality: Excellent. ABDOMEN: Lung bases: Lung bases are clear. Heart size is normal. Solid organs: Liver is normal in size and enhancement. Gallbladder has been previously resected. Biliary system is non dilated. Pancreas enhances normally. Spleen is normal in size and enhancement. No adrenal nodules. Kidneys demonstrate normal size and enhancement, without hydronephrosis. There is a subcentimeter water density cyst at the posterior border of the right mid kidney, and a similar water density cyst that measures up to 1.4 cm in maximal dimension at the lateral cortex of the left mid kidney. Peritoneum and bowel: Bowel loops demonstrate normal wall thickness and caliber. No free fluid or air. At the right upper quadrant and immediately below the ascending colon and hepatic flexure of the right colon shows mild mural thickening and at least one diverticulum. Mild pericolonic edema is associated. Nodes and vessels: No retroperitoneal or mesenteric adenopathy by size criteria. Aorta and inferior vena cava are normal in size. Miscellaneous: No ventral hernias. PELVIS: Genitourinary: Bladder wall thickness is normal. Miscellaneous: No inguinal hernias or adenopathy. Bones: No suspicious bony lesions. No vertebral body compression fractures. IMPRESSION: Right upper abdomen ascending colon and hepatic flexure mild mural thickening with adjacent pericolonic mild edema in a pattern either representing mild colitis or focal mild acute diverticulitis without peridiverticular abscess. Prior cholecystectomy, no biliary distention. No urinary tract stone suspected. Dictated by: Cristopher Ortega M.D. on 09/09/2018 at 21:22 Approved by: Cristopher Ortega M.D. on 09/09/2018 at 21:25
[2018-09-09] MEDS: HYDROMORPHONE 1 MG INJ IV (19:52)
[2018-09-09] MEDS: ONDANSETRON 4 MG/2 ML INJ IV (19:55)
[2018-09-09 20:32] LABS: Lactate (Lactic Acid) 0.8 mmol/L (0.7-2.1)
[2018-09-09 21:00] LABS: Procalcitonin 0.05 ng/mL (<0.5)
[2018-09-09] MEDS: levoFLOXacin 750 MG/150 ML PIGGYBACK 100 MG IV (21:28)
[2018-09-10] MEDS: HYDROMORPHONE 2 MG INJ IV ×4 (00:02→20:32)
[2018-09-10] MEDS: metroNIDAZOLE 500 MG/100 ML PIGGYBACK 100 MG IV ×4 (00:11→23:44)
[2018-09-10] MEDS: SODIUM CHLORIDE 0.9% 1,000 ML 125 ML IV ×3 (01:27→23:35)
--- NOTE | 2018-09-10 04:12 | PC.NURSE ---
Pt is A and O x 4, tachy at 0000 at 115 up to 150 with ambulation, but now is in low 90's. SR. Pt gait slow and shaky, using FWW. She appears to have difficulty with getting up onto her feet from sitting; using her knees, and states no one knows what is wrong with my knees. Pt is tolerating IV ABOs, and IVF well. Rated pain 6/10 at beginning of shift and has gotten good relief with 2mg IVP dilaudid. She has been able to sleep. Pt has poor overall hygiene and has rash under bilat breasts and reddened samaria area. Will request Nystatin. LS clear, + BT, flatus. Cooperative.
[2018-09-10 06:04] VITALS: BP 100/57; PULSE 100; RESP 16; TEMP 36.9; O2SAT 96
[2018-09-10] MEDS: ONDANSETRON 4 MG/2 ML INJ IV ×2 (08:36→15:48)
[2018-09-10 08:37] LABS: Add Manual Diff / Slide Review NO; Basophils Percent Auto 0.6 % (0-2); Eosinophils Percent Auto 2.4 % (2-4); Hemoglobin 10.6 g/dL (12.0-16.0); Lymphocytes Percent Auto 20.1 % (25-40); Mean Corpuscular HGB Conc 33.1 % (30-36); Mean Corpuscular Hemoglobin 25.7 PG (26-34); Mean Corpuscular Volume 77.8 fL (80-100); Monocytes Percent Auto 9.1 % (3-14); Neutrophils Absolute Auto 7000 /uL (3000-5900); Neutrophils Percent Auto 67.8 % (50-75); Platelet Count 523 X10^3/uL (150-400); Red Blood Cell Count 4.12 X10^6/uL (4.0-5.2); Red Cell Distribution Width 16.4 % (11.6-14.8); White Blood Cell Count 10.4 X10^3/uL (4.5-11.0)
--- NOTE | 2018-09-10 08:38 | PC.NURSE ---
Addendum entered by Hawa Xavier R.N. 09/10/18 16:10: Pt tolerating diet well. No nausea reported Pain improved with restart of Lyrica and IV Dilaudid. Original Note: Am shift Pt c/o pain and nausea at start of shift. Medicated. ICF infusing. Pt with poor hygiene, enc bathing for skin breakdown. Reports redness below breasts. Will address with Dr Quinn on rounding this AM. Pt curious about diet, oral care provided. Education on bowel rest.
[2018-09-10 08:42] VITALS: BP 125/71; PULSE 108; RESP 21; TEMP 37.2; O2SAT 98
[2018-09-10 08:48] LABS: Alanine Aminotransferase 17 IU/L (9-52); Albumin 2.6 g/dL (3.5-5.0); Albumin Globulin Ratio 0.8 (1.0-2.8); Alkaline Phosphatase 139 U/L (38-126); Aspartate Aminotransferase 13 IU/L (14-36); Bilirubin Total 0.3 mg/dL (0.2-1.3); Calcium 8.5 mg/dL (8.4-10.2); Carbon Dioxide 26 mmol/L (22-32); Estimated Glomerular Filt Rate > 60.0 mL/min (>60); Globulin 3.4 g/dL (1.7-4.1); Glucose 91 mg/dL (70-100); HEMOLYSIS < 15 (0-50)
[2018-09-10 08:59] LABS: Chloride 105 mmol/L (98-107); Potassium 3.6 mmol/L (3.4-5.1); Sodium 138 mmol/L (137-145)
[2018-09-10 09:13] LABS: BUN Creatinine Ratio 3.3 (6-22); Blood Urea Nitrogen 2 mg/dL (7-17)
--- NOTE | 2018-09-10 10:56 | PM.HP.1 ---
History of Present Illness Date Patient Seen: 09/10/18 Time Patient Seen: 15:48 Chief complaint: FEELING WEIRED GOT REALLY DIZZY Narrative: This is a 33-year-old female with no history of urinary tract infections who presented to the emergency department last night after experiencing waves of ?dizziness and nausea? while shopping using a motorized cart in [place] yesterday. She had been ?feeling warm? for about 2 days but denies chills or fevers. There has been no dysuria, flank pain, abdominal pain. She reports having blood seen in her urine about 2 weeks ago but being reassured there was probably related to her period. She has had no recurrence of that issue. That visit was prompted by knee pain on the right side. Her urine is quite abnormal and she was tachycardic most of the night until after she received several L of IV fluids. The initial white blood count was 16, now down to 10.4 this morning. She continues to feel warm and nauseated. Patient History Medical History Asthma (Acute) Chronic knee pain (Acute) Chronic shoulder pain (Acute) Epilepsia (Acute) Heart palpitations (Acute) IBS (irritable bowel syndrome) (Acute) Idiopathic intracranial hypertension (Acute) Incisional hernia (Acute) Migraine (Acute) PTSD (post-traumatic stress disorder) (Acute) Surgical History Hx laparoscopic cholecystectomy (Acute) Hx of tonsillectomy (Acute) Family & Social History Social History: household members family,friend(s) Prior Living Arrangements Apartment/Condo Safety & Behavioral: Feels Safe in Current Yes Environment Been Physically Hurt or No Threatened By a Person Suicidal Ideation Description None Suicide Plan Description No Plan Tobacco & Substance use: Smoking Status Never smoker alcohol intake frequency Occasional drinks on holidays Substance Use Type does not use Meds Home Medications Medication Instructions Recorded Confirmed Type acetaminophen [Mapap Arthritis 650 mg PO TID 09/09/18 09/09/18 History Pain] albuterol sulfate [ProAir HFA] 1 puff INHALATION PRN PRN 09/09/18 09/09/18 History cetirizine 10 mg PO DAILY 09/09/18 09/09/18 History pregabalin [Lyrica] 225 mg PO BID 09/09/18 09/09/18 History Allergies Allergy/AdvReac Type Severity Reaction Status Date / Time ibuprofen [IBUPROFEN] Allergy Severe severe Verified 09/09/18 15:30 headaches vancomycin [VANCOMYCIN] Allergy Severe martha Verified 09/09/18 15:30 cephalexin [From KEFLEX] Allergy Unknown Verified 09/09/18 15:30 fluoxetine [From PROZAC] Allergy Unknown Verified 09/09/18 15:30 Sulfa (Sulfonamide AdvReac Mild CONSTIPATIO Verified 09/09/18 15:30 Antibiotics) N [SULFA (SULFONAMIDE ANTIBIOTICS)] aspirin [ASPIRIN] AdvReac Unknown SINCE Verified 09/09/18 15:30 CHILDHOOD UNKNOWN NSAIDS (Non-Steroidal AdvReac Gastrointestinal Verified 09/09/18 23:16 Anti-Inflamma Upset Review of Systems Review of Systems Positive for nausea, dizziness, rash, hair loss. Negative for chest pain, shortness of breath, chills, coughing, headaches, seizures, joint pain, bleeding, dysuria, vomiting, abdominal pain, new allergies. All systems reviewed & are unremarkable except as noted in HPI and below Exam Vital Signs (past 8 hours): - 09/10/18 06:04 09/10/18 08:42 Temperature 98.5 F 99 F Pulse Rate 100 H 108 H Respiratory Rate 16 21 Blood Pressure 100/57 L 125/71 Pulse Oximetry 96 98 Oxygen Delivery Method Room Air Oxygen Flow Rate 0 Narrative Exam Narrative: Alert and oriented x3 Pupils are equally round and reactive to light and accommodation. Extraocular muscles are intact. Sclerae are pink and nonicteric. Throat looks normal except for a small palatal torus. No lymph nodes are felt head, neck, supraclavicular area. JVD is less than 6 cm. No carotid bruits are heard. There is no thyromegaly. Heart is regular rate and rhythm without murmur. Lungs are clear to auscultation bilaterally. Abdomen is soft, bowel sounds positive, tender epigastric area, no organomegaly. Extremities no ankle edema. Skin no rash or jaundice. There is diffuse hair thinning and lots of loose hairs on her bedding. Neuro cranial nerves 2-12 tested intact, motor function 5/5 throughout, sensation intact, DTRs are normal, gait and balance are normal. There is no tremor. Objective Labs Result Diagrams: 09/10/18 08:34 09/10/18 08:34 Labs: Laboratory Results - last 24 hr 09/09/18 09/09/18 09/09/18 16:30 16:30 16:30 WBC 16.3 H RBC 4.57 Hgb 11.6 L Hct 36.1 MCV 78.9 L MCH 25.3 L MCHC 32.1 RDW 16.2 H Plt Count 634 H Neut % (Auto) 83.3 H Lymph % (Auto) 8.6 L [place] % (Auto) 7.1 Eos % (Auto) 0.6 L Baso % (Auto) 0.4 Neut # (Auto) 62788 H D-Dimer 494 H Sodium 136 L Potassium 3.7 Chloride 100 Carbon Dioxide 26 BUN 8 Creatinine 0.60 Estimated GFR > 60.0 BUN/Creatinine Ratio 13.3 Glucose 130 H Lactate Calcium 9.0 Total Bilirubin 0.4 AST 20 ALT 13 Alkaline Phosphatase 143 H Total Creatine Kinase < 20 L CK-MB (CK-2) TNP CK-MB (CK-2) Rel Index TNP Troponin I < 0.012 Total Protein 6.9 Albumin 3.1 L Globulin 3.8 Albumin/Globulin Ratio 0.8 L Lipase 20 L Procalcitonin Urine RBC Urine WBC Urine Bacteria Urine Mucus Ur Culture Indicated? Micro UA Comment 09/09/18 09/09/18 09/09/18 17:50 20:06 20:06 WBC RBC Hgb Hct MCV MCH MCHC RDW Plt Count Neut % (Auto) Lymph % (Auto) [place] % (Auto) Eos % (Auto) Baso % (Auto) Neut # (Auto) D-Dimer Sodium Potassium Chloride Carbon Dioxide BUN Creatinine Estimated GFR BUN/Creatinine Ratio Glucose Lactate 0.8 Calcium Total Bilirubin AST ALT Alkaline Phosphatase Total Creatine Kinase CK-MB (CK-2) CK-MB (CK-2) Rel Index Troponin I Total Protein Albumin Globulin Albumin/Globulin Ratio Lipase Procalcitonin 0.05 Urine RBC None seen Urine WBC 10-30/hpf H Urine Bacteria None seen Urine Mucus 3+ H Ur Culture Indicated? Specimen cultured Micro UA Comment Not Reportable 09/10/18 09/10/18 08:34 08:34 WBC 10.4 RBC 4.12 Hgb 10.6 L Hct 32.0 L MCV 77.8 L MCH 25.7 L MCHC 33.1 RDW 16.4 H Plt Count 523 H Neut % (Auto) 67.8 Lymph % (Auto) 20.1 L [place] % (Auto) 9.1 Eos % (Auto) 2.4 Baso % (Auto) 0.6 Neut # (Auto) 7000 H D-Dimer Sodium 138 Potassium 3.6 Chloride 105 Carbon Dioxide 26 BUN 2 L Creatinine 0.60 Estimated GFR > 60.0 BUN/Creatinine Ratio 3.3 L Glucose 91 Lactate Calcium 8.5 Total Bilirubin 0.3 AST 13 L ALT 17 Alkaline Phosphatase 139 H Total Creatine Kinase CK-MB (CK-2) CK-MB (CK-2) Rel Index Troponin I Total Protein 6.0 L Albumin 2.6 L Globulin 3.4 Albumin/Globulin Ratio 0.8 L Lipase Procalcitonin Urine RBC Urine WBC Urine Bacteria Urine Mucus Ur Culture Indicated? Micro UA Comment Assessment & Plan Plan: Assessment/Plan Narrative: Urinary Tract Infection/Pyelonephritis - Continue Levaquin IV - Urine cultures pending - Continue IVF until her presenting symptoms clear fully. Possible Diverticulitis - Continue Flagyl IV - Noting that Lactate and Procalcitonin are very low Chronic Knee and Shoulder pain - Continue Lyrica. Chronic Migraines - Continue Lyrica. Anemia - Check B12 and iron leves. Quality VTE Deep Vein Thrombosis/Pulmonary Embolism Present on Admission: No
[2018-09-10 12:14] VITALS: BP 121/72; PULSE 106; RESP 17; TEMP 37.3; O2SAT 96
[2018-09-10] MEDS: PREGABALIN 75 MG CAPSULE 225 MG PO ×2 (13:12→20:30)
[2018-09-10] MEDS: ACETAMINOPHEN 325 MG TABLET 650 MG PO ×2 (15:03→20:30)
[2018-09-10] MEDS: levoFLOXacin 500 MG/100 ML PIGGYBACK 100 MG IV (15:05)
--- NOTE | 2018-09-10 15:14 | CM.DANOTE ---
Discharge Planning/Care Management DCP: assessment: case received, EMR reviewed and met just now with pt (H&P in draft, minimal information thus far. Introduced self and role. Pt is a 33 year old female who admitted to care of Hosptialist team late last night. Dr. Quinn is seeing her today. Payer: Coordinated care/Medicaid INPT admission status: confirmed by [facility] SIMI Hurtado. PCP: Annie Nayak Neurologist: Dr. Valentina Hess Pt describes her living situation and support system/see details below in the Template. Plan: discuss in Team Rounds tomorrow : request consideration of OT/PT while in hospital and likely need for HHS. (will need Face/Face). Will be following tomorrow. CM Discharge Assessment Start: 09/10/18 14:35 Freq: Status: Active Protocol: Document 09/10/18 15:03 ITV (Rec: 09/10/18 15:13 [email or web address] [id number]) Discharge Planning Assessment Advance Directives? No Advance Directives on File No History Provided By Patient Medical Record Prior Living Arrangements Apartment/Condo Household Members family friend(s) Comment lives with grandmother/her primary caregiver pt's 11 year old daughter and currently her daughter's father/Rafi/also helping pt for caregiver support Type of transporation used prior to Relies on Others admit Independent with ADL's No Is patient alert and oriented? Yes Needs Assistance With Bathing Meal Prep Toileting Home Chores / Shopping Comment needs fluctuate but toileting help is more related to cleaning up occassional incontinent episode as pt cannot bend over to ground. Comment has a 4ww. uses at times, mostly is kept in the car to access doctor appts etc Patient/Family Preference Home with Home Health Comment consideration of HH services.. .dx and poc are in process so not certain Comment pt has a flight of stairs to get to their apartment. Is on list of several places for a ground level floor apt. She can manage the stairs with help but they keep her primarily homebound Community Services Home Delivered Meals Transportation Arrangement pt is on the Meal on Wheels program, set up by her grandmother. Additional Comment consider HHS: Coordinated care agency consider HH RN/OT/PT /KEEPER HELPER (pt wonders about resources for counseling, either online or in person... is anxious and frustrated by her onging neurology issues that have not been diagnosed. Sees a neurologist. Whiteboard Updated in Patient Room with Yes name and ext. # of Automotive Technician Review Status In Process Next Review Type Continued Stay Review Document 09/10/18 15:13 ITV (Rec: 09/10/18 15:14 ITV [id number]) Discharge Planning Assessment Advance Directives? No Advance Directives on File No History Provided By Patient Medical Record Prior Living Arrangements Apartment/Condo Household Members family friend(s) Comment lives with grandmother/her primary caregiver pt's 11 year old daughter and currently her daughter's father/Rafi/also helping pt for caregiver support Type of transporation used prior to Relies on Others admit Independent with ADL's No Is patient alert and oriented? Yes Needs Assistance With Bathing Meal Prep Toileting Home Chores / Shopping Comment needs fluctuate but toileting help is more related to cleaning up occassional incontinent episode as pt cannot bend over to ground. Comment has a 4ww. uses at times, mostly is kept in the car to access doctor appts etc Patient/Family Preference Home with Home Health Comment consideration of services.. .dx and poc are in process so not certain Comment pt has a flight of stairs to get to their apartment. Is on list of several places for a ground level floor apt. She can manage the stairs with help but they keep her primarily homebound Community Services Home Delivered Meals Transportation Arrangement pt is on the Meal on Wheels program, set up by her grandmother. Additional Comment consider [facility]: Coordinated care agency consider HH RN/OT/PT /KEEPER HELPER (pt wonders about resources for counseling, either online or in person... is anxious and frustrated by her onging neurology issues that have not been diagnosed. Sees a neurologist. Whiteboard Updated in Patient Room with Yes name and ext. # of Automotive Technician Review Status In Process Next Review Type Continued Stay Review
[2018-09-10 15:49] VITALS: BP 113/69; PULSE 108; RESP 16; TEMP 37; O2SAT 95
[2018-09-10] MEDS: NYSTATIN CREAM 30 GM 1 APPLIC TOP (20:30)
[2018-09-10 20:33] VITALS: BP 119/71; PULSE 107; RESP 16; TEMP 37.3; O2SAT 97
[2018-09-10 23:55] VITALS: BP 107/65; PULSE 120; RESP 16; TEMP 37.5; O2SAT 94
[2018-09-11] VITALS (9 sets, daily range): BP systolic 108–129; BP diastolic 59–73; PULSE 106–124; RESP 16–24; TEMP 37.1–38.1; O2SAT 92–99
[2018-09-11] MEDS: HYDROMORPHONE 2 MG INJ IV ×4 (03:59→21:33)
[2018-09-11] MEDS: ACETAMINOPHEN 325 MG TABLET 650 MG PO ×3 (04:04→19:03)
--- NOTE | 2018-09-11 05:31 | PC.NURSE ---
Pt is A and O x 4, slight fever of 100.3; tachy at 115-130, SR, other VSS. LS clear, + BTs and voiding clear yellow qs. She is not showing much initiative to move. She states that even though she has daily petite mal seizures 2/2 epilepsy she is now has new shaking and greater weakness and pain. HR increases to 150 when moving to [facility]. Pt eating and drinking and able to sleep.
[2018-09-11] MEDS: metroNIDAZOLE 500 MG/100 ML PIGGYBACK 100 MG IV ×3 (05:45→19:03)
[2018-09-11 05:52] LABS: Add Manual Diff / Slide Review NO; Basophils Percent Auto 2.5 % (0-2); Hematocrit 29.8 % (36-46); Lymphocytes Percent Auto 9.5 % (25-40); Mean Corpuscular HGB Conc 33.5 % (30-36); Mean Corpuscular Hemoglobin 26.2 PG (26-34); Mean Corpuscular Volume 78.1 fL (80-100); Monocytes Percent Auto 10.8 % (3-14); Neutrophils Absolute Auto 7800 /uL (3000-5900); Neutrophils Percent Auto 75.2 % (50-75); Platelet Count 429 X10^3/uL (150-400); Red Blood Cell Count 3.81 X10^6/uL (4.0-5.2); Red Cell Distribution Width 16.2 % (11.6-14.8); White Blood Cell Count 10.4 X10^3/uL (4.5-11.0)
[2018-09-11 06:24] LABS: Iron 13 ug/dL (37-170)
[2018-09-11 06:59] LABS: Vitamin B12 605 pg/mL (239-931)
[2018-09-11] MEDS: LORATADINE 10 MG TABLET PO (08:54)
[2018-09-11] MEDS: PREGABALIN 75 MG CAPSULE 225 MG PO ×2 (08:54→19:02)
[2018-09-11] MEDS: NYSTATIN CREAM 30 GM 1 APPLIC TOP ×2 (08:54→19:12)
[2018-09-11 08:57] LABS: Thyroid Stimulating Hormone 2.19 uIU/mL (0.47-4.68)
[2018-09-11] MEDS: SODIUM CHLORIDE 0.9% 1,000 ML 125 ML IV ×2 (09:53→22:53)
--- NOTE | 2018-09-11 10:37 | P.PN_ITS ---
Subjective Date Patient Seen: 09/11/18 Interval history: She is seen today to follow up the UTI symptoms and Colitis. The urine culture is negative and the BCs are negative. The CT suggested Colitis or Diverticulitis at the ascending/transverse colon so a surgery consult will be requested. She says she is still feeling dizzy when she sits up but the abdominal pain has improved. The temperature did reach 100.0. Her pulse rate has been high, as high as 124. The hemoglobin is stable at 10.0. The white count is 10.4. Exam Vital Signs (past 8 hours): - 09/11/18 03:59 09/11/18 05:56 09/11/18 05:57 Temperature 100.0 F H 100.0 F H 100.0 F H Pulse Rate Respiratory Rate Blood Pressure Pulse Oximetry 09/11/18 06:18 09/11/18 09:10 Temperature 100.0 F H 98.8 F Pulse Rate 124 H 106 H Respiratory Rate 16 24 Blood Pressure 108/73 115/72 Pulse Oximetry 98 92 Oxygen Delivery Method Room Air Oxygen Flow Rate 0 Narrative Exam Narrative: Alert and oriented x3. She appears somewhat worried by the ongoing symptoms and lack of clarity. She is describing rectal incontinence. That appears to be new. Heart is regular rate and rhythm without murmur. Lungs are clear to auscultation bilaterally. Extremities have no ankle edema. Abdomen is tender in the right upper quadrant and also in the left upper quadrant. Bowel sounds are positive and there is no organomegaly felt. Objective Labs Result Diagrams: 09/11/18 05:31 09/10/18 08:34 Labs: Laboratory Results - last 24 hr 09/11/18 09/11/18 09/11/18 05:31 05:31 05:31 WBC 10.4 RBC 3.81 L Hgb 10.0 L Hct 29.8 L MCV 78.1 L MCH 26.2 MCHC 33.5 RDW 16.2 H Plt Count 429 H Neut % (Auto) 75.2 H Lymph % (Auto) 9.5 L [place] % (Auto) 10.8 Eos % (Auto) 2.0 Baso % (Auto) 2.5 H Neut # (Auto) 7800 H Iron 13 L Vitamin B12 605 TSH 2.19 Assessment & Plan Plan: Assessment/Plan Narrative: Colitis/Diverticulitis - Continue Levaquin and Flagyl IV - Urine cultures are mixed solomon - Continue IVF until her presenting symptoms are diagnosis become clear. - Discussed with Dr. Chavarria. Colonoscopy may be needed. He will review the CT scan and consult on the patient. Chronic Knee and Shoulder pain - Continue Lyrica. Chronic Migraines - Continue Lyrica. - Will try to review Dr. Hess's Neuro notes in the [facility] system as she has told others that she follows there for a an unnamed neurological condition that has left her disabled. Anemia - B12 is normal at 605. Iron level pending. Hgb now 10.0. Quality VTE Deep Vein Thrombosis/Pulmonary Embolism Present on Admission: No
--- NOTE | 2018-09-11 11:35 | PC.NURSE ---
Addendum entered by Hawa Xavier R.N. 09/11/18 16:02: Pt education provided on NPO status. Pt not thrilled about this change and education about POC and bowel rest. Pt cooperative. Requested grandmother be updated by Dr Chavarria after rounds tomorrow. Aware of need for stool sample for cdiff. Original Note: Addendum entered by Hawa Xavier R.N. 09/11/18 14:56: Call to Deon to clarify bowel rest, NPO order obtained. Original Note: Addendum entered by Hawa Xavier R.N. 09/11/18 13:48: Medicated for pain, Pt rates pain 05/03 Original Note: AM Shift Pt is A/o x3, reports pain to ABD/low back. Medicated. Dr Quinn into see Pt, updated on POC, and neg UTI. Stools have been loose, with fecal incont. and that is new for Pt. Dr Chavarria will consult on Pt for colitis. SBA to [facility]
--- NOTE | 2018-09-11 13:57 | PM.CN ---
History of Present Illness Date Patient Seen: 09/11/18 Time Patient Seen: 13:48 Chief complaint: FEELING WEIRED GOT REALLY DIZZY Reason for consult: Possible colitis/diverticulitis Requesting provider: Leslie Quinn Narrative: The patient is a woman who is not the best of historians. She says she came into the emergency room because she just did not feel right. She has intermittent right abdominal pain. This episode has been present several days. It was accompanied by nausea but she did not vomit though she felt like she might half to. The pain when it 1st started was about a 6 to 7/10. When she is not getting pain medicine to distal 6 to 7/10. Right now she is comfortable because she just had some pain medicine. She has chronic intermittent diarrhea and constipation. She does not always know when she needs to have a bowel movement and does have therefore some incontinence at times. No patches or blood per rectum. She has had her gallbladder removed. She was initially admitted and began treatment for UTI but that did not alvares out. Her culture results actually showed multiple organisms and so it was a inadequate specimen. [facility] Medical History Heart palpitations (Acute) Idiopathic intracranial hypertension (Acute) Migraine (Acute) Asthma (Chronic) Chronic knee pain (Chronic) Chronic shoulder pain (Chronic) Epilepsia (Chronic) IBS (irritable bowel syndrome) (Chronic) Incisional hernia (Chronic) PTSD (post-traumatic stress disorder) (Chronic) Surgical History Hx laparoscopic cholecystectomy (Resolved) Hx of tonsillectomy (Resolved) Family History Mother Dystonia 16 Parkinsons Father H/O colectomy Social History household members: family and friend(s) Smoking Status: Never smoker Meds Home Medications Medication Instructions Recorded Confirmed Type acetaminophen [Mapap Arthritis 650 mg PO TID 09/09/18 09/09/18 History Pain] albuterol sulfate [ProAir HFA] 1 puff INHALATION PRN PRN 09/09/18 09/09/18 History cetirizine 10 mg PO DAILY 09/09/18 09/09/18 History pregabalin [Lyrica] 225 mg PO BID 09/09/18 09/09/18 History Allergies Allergy/AdvReac Type Severity Reaction Status Date / Time ibuprofen [IBUPROFEN] Allergy Severe severe Verified 09/09/18 15:30 headaches vancomycin [VANCOMYCIN] Allergy Severe martha Verified 09/09/18 15:30 cephalexin [From KEFLEX] Allergy Unknown Verified 09/09/18 15:30 fluoxetine [From PROZAC] Allergy Unknown Verified 09/09/18 15:30 Sulfa (Sulfonamide AdvReac Mild CONSTIPATIO Verified 09/09/18 15:30 Antibiotics) N [SULFA (SULFONAMIDE ANTIBIOTICS)] aspirin [ASPIRIN] AdvReac Unknown SINCE Verified 09/09/18 15:30 CHILDHOOD UNKNOWN NSAIDS (Non-Steroidal AdvReac Gastrointestinal Verified 09/09/18 23:16 Anti-Inflamma Upset Review of Systems Review of Systems Patient has no tooth aches at this time. She has no problems with her hearing. No cough or cold. She does have asthma. She does have heart palpitations. Suffers from hypertension. No heart attacks. No black or bloody bowel movements. No dysuria or hematuria. She does have petite mal seizures as well as occasional grand mal seizures. She is on what appears to be Lyrica for them. She says she has petite mal seizures despite the medication every day. Has chronic knee pain. Exam Vital Signs (past 8 hours): - 09/11/18 06:18 09/11/18 09:10 09/11/18 11:00 Temperature 100.0 F H 98.8 F 100.0 F H Pulse Rate 124 H 106 H 120 H Respiratory Rate 16 24 16 Blood Pressure 108/73 115/72 114/72 Pulse Oximetry 98 92 93 Oxygen Delivery Method Room Air Oxygen Flow Rate 0 Narrative Exam Narrative: Obese pleasant woman in no apparent distress. Eyes are nonicteric. Space in her incisors. Lungs are clear to auscultation no rales or rhonchi. No wheezing. Heart regular rate and rhythm without murmur gallop. No bruit in the neck. Her abdomen is distended soft. No guarding. No obvious tenderness at this time. No obvious enlargement of her liver spleen and no obvious hernias are felt. Alert and oriented x3. Speech rate and content are appropriate. Objective Imaging CT scan - abdomen: My impression: Some thickening of the colon in the right upper quadrant. No other particularly abnormals signs. She has had a laparoscopic cholecystectomy. Labs Result Diagrams: 09/11/18 05:31 09/10/18 08:34 Labs: Laboratory Results - last 24 hr 09/11/18 09/11/18 09/11/18 05:31 05:31 05:31 WBC 10.4 RBC 3.81 L Hgb 10.0 L Hct 29.8 L MCV 78.1 L MCH 26.2 MCHC 33.5 RDW 16.2 H Plt Count 429 H Neut % (Auto) 75.2 H Lymph % (Auto) 9.5 L Roane % (Auto) 10.8 Eos % (Auto) 2.0 Baso % (Auto) 2.5 H Neut # (Auto) 7800 H Iron 13 L Vitamin B12 605 TSH 2.19 Assessment & Plan Plan: Assessment/Plan Narrative: Patient with right upper abdominal pain, chronic intermittent diarrhea and constipation, and an abnormal CT showing thickening of the colon in the right upper quadrant. I would recommend treating this as diverticulitis. I would get her over her initial symptomatology and proceed to a colonoscopy at some point to rule out some other abnormality. Choice of antibiotic a little difficult in this patient. It turns out she is unable to take 5 the Floxin says because it causes tachycardia. She thinks she may have had anaphylaxis to Keflex but she is not certain. This would preclude the use of cephalosporins and probably the penicillins. This eliminates a large number of drugs I would use to treat GI tract solomon. Therefore I will give her Tygacil and continue the metronidazole for anaerobic coverage. Bowel rest. It sounds like her seizure meds could be adjusted but that is outside the realm of my expertise. Repeat labs in a.m..
[2018-09-11] MEDS: levoFLOXacin 500 MG/100 ML PIGGYBACK 100 MG IV (15:12)
[2018-09-11] MEDS: TIGECYCLINE 100 MG in SODIUM CHLORIDE 0.9% 100 ML IV (16:49)
--- NOTE | 2018-09-11 16:54 | CM.DPC ---
DCP: continued: case discussed in Team Rounds. Dr. Quinn planned to follow up re the information re pt's neurological condition. General surgery was consulted and Dr. Chavarria saw pt today. DCPlanner will continue to follow closely as full dx and tx plan are clarified.
--- NOTE | 2018-09-11 18:30 | PC.NURSE ---
Patient is A&O x3 pleasant and cooperative and is able to make needs known when nec. Patients daughter in room visiting. Much time was spent discussing concerns of d/c home tomorrow. Daughter is concerned that patient does live on her own w/ no assistance other then neighbor that checks in once in a while. Discussed possibility of d/c to [facility] for rehab and medication management for 1-2 weeks or as needed. Daughter states that after last hospitalization patient went to [facility] for 2 weeks and had greatly improved from doing so and wishes for patient to do the same this time around. Consult for care management was placed to discuss this plan rather then d/c home alone. Both patient and daughter are on agreeable terms that this could be best option for patient and patient is compliant with working out a different plan for d/c.
[2018-09-11 19:12] LABS: Clostridium Difficile Tox PCR Negative for C. diff
[2018-09-12 01:01] VITALS: BP 117/59; PULSE 106; RESP 16; TEMP 37.2; O2SAT 95
[2018-09-12] MEDS: metroNIDAZOLE 500 MG/100 ML PIGGYBACK 100 MG IV ×4 (01:04→18:12)
[2018-09-12] MEDS: TIGECYCLINE 50 MG in SODIUM CHLORIDE 0.9% 100 ML IV ×2 (01:07→14:39)
--- NOTE | 2018-09-12 04:37 | PC.NURSE ---
Pt is A and O x 4, VSS, tachy at 90, SR. Pt able to sleep this shift, no complaints of abd pain. Tolerating IV ABOs well. Denies N and one loose stool this shift, continent. Voiding qs clear yellow. LS clear. Wound in buttocks cleft larger per evening report. Barrier cream applied per EARLY MORNING BABYSITTER.
[2018-09-12 05:59] VITALS: BP 99/62; PULSE 92; RESP 16; TEMP 37.1; O2SAT 95
[2018-09-12] MEDS: HYDROMORPHONE 2 MG INJ IV ×3 (06:45→19:43)
[2018-09-12 09:05] VITALS: BP 90/50; PULSE 90; RESP 18; TEMP 37.2; O2SAT 95
--- NOTE | 2018-09-12 09:11 | PC.NURSE ---
Addendum entered by Hawa Xavier R.N. 09/12/18 14:35: Pt remains NPO, c/o pain with movement, oral care provided. Loose stool x1 today. Showered. resting in bed with no complaints. at present. Original Note: Am shift Pt is NPO and rec'd pain meds @ 0630. Allow to sleep.
[2018-09-12] MEDS: ACETAMINOPHEN 325 MG TABLET 650 MG PO ×3 (10:05→19:44)
[2018-09-12] MEDS: LORATADINE 10 MG TABLET PO (10:05)
[2018-09-12] MEDS: NYSTATIN CREAM 30 GM 1 APPLIC TOP ×2 (10:05→19:45)
[2018-09-12] MEDS: PREGABALIN 75 MG CAPSULE 225 MG PO ×2 (10:05→19:44)
[2018-09-12 13:15] VITALS: BP 84/47; PULSE 91; RESP 19; TEMP 37.1; O2SAT 95
[2018-09-12] MEDS: ONDANSETRON 4 MG/2 ML INJ IV (13:48)
[2018-09-12] MEDS: SODIUM CHLORIDE 0.9% 1,000 ML 125 ML IV (13:48)
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
[2018-09-12 16:00] VITALS: BP 105/66; PULSE 92; RESP 16; TEMP 36.9; O2SAT 97
--- NOTE | 2018-09-12 16:44 | PM.PN.1 ---
Subjective Date Patient Seen: 09/12/18 Interval history: Patient continues to report abdominal pain and diarrhea. She describes having bloody stool as well. She does not feel like things are getting better. She has multiple questions which were answered regarding her treatment course. Patient does report having a prior episode of colitis in October. She states at that time they felt it was due to nonsteroidals. She is questioning why she has had colitis since October. I explained to the patient that we would obtain a repeat C difficile. We will continue IV hydration, bowel rest, antibiotics. If her symptoms do not improve with conservative treatment would consider flexible sigmoidoscopy or colonoscopy to rule out the possibility of pseudomembranous colitis. Exam Vital Signs (past 8 hours): - 09/12/18 09:05 09/12/18 13:15 Temperature 98.9 F 98.7 F Pulse Rate 90 91 H Respiratory Rate 18 19 Blood Pressure 90/50 L 84/47 L Pulse Oximetry 95 95 Oxygen Delivery Method Room Air Oxygen Flow Rate 0 Narrative Exam Narrative: Ill appearing female in no acute distress Lungs clear to auscultation Cardiac exam regular rate and rhythm normal S1 and S2 Abdomen soft mildly tender in the left upper quadrant and right lower quadrant. No rebound tenderness. No board-like rigidity. No palpable masses. Hypoactive bowel tones. Extremities edema no edema Objective Labs Result Diagrams: 09/11/18 05:31 09/10/18 08:34 Labs: Laboratory Results - last 24 hr 09/11/18 18:10 C. difficile Tox (PCR) Negative for c. diff Assessment & Plan (1) Acute diverticulitis: Problem details: Continue Tygacil and Flagyl. Will repeat C diff Current visit: Yes Status: Acute (2) Anemia: Problem details: Suspect anemia of chronic disease Current visit: Yes Status: Acute (3) Seizure disorder: Problem details: Continue limb lower Current visit: Yes Status: Acute Quality VTE Deep Vein Thrombosis/Pulmonary Embolism Present on Admission: No
--- NOTE | 2018-09-12 18:19 | PM.PN.1 ---
Subjective Date Patient Seen: 09/12/18 Time Patient Seen: 11:19 Interval history: Zaina is sleeping on her right side the time of my visit this morning. She is easily aroused. She reports that her belly hurts ?all the time?. She reports she continues to have liquid bowel movements. She had a very large liquid stool this morning. She is frustrated and does not feel that her pain or her symptoms are improving. No fever documented since last evening. Exam Vital Signs (past 8 hours): - 09/12/18 13:15 09/12/18 16:00 Temperature 98.7 F 98.4 F Pulse Rate 91 H 92 H Respiratory Rate 19 16 Blood Pressure 84/47 L 105/66 Pulse Oximetry 95 97 Oxygen Delivery Method Room Air Oxygen Flow Rate 0 Narrative Exam Narrative: Unhappy and somewhat uncomfortable appearing lady Abdomen: Soft, tender to palpation in the right upper quadrant. Globally diffusely tender to palpation with hyperactive bowel sounds. Positive voluntary guarding but no true rebound. Objective Labs Result Diagrams: 09/11/18 05:31 09/10/18 08:34 Labs: Laboratory Results - last 24 hr 09/11/18 18:10 C. difficile Tox (PCR) Negative for c. diff Assessment & Plan Plan: Assessment/Plan Narrative: Continue antibiotics for now. She is objectively better as her fever curve has improved. Reassess in the AM. Quality VTE Deep Vein Thrombosis/Pulmonary Embolism Present on Admission: No
[2018-09-12 19:25] VITALS: BP 109/62; PULSE 91; RESP 14; TEMP 37.1; O2SAT 96
[2018-09-13] VITALS (8 sets, daily range): BP systolic 101–112; BP diastolic 59–72; PULSE 94–102; RESP 16–18; TEMP 36.1–37.1; O2SAT 94–97
[2018-09-13] MEDS: TIGECYCLINE 50 MG in SODIUM CHLORIDE 0.9% 100 ML IV ×2 (00:16→14:35)
[2018-09-13] MEDS: HYDROMORPHONE 2 MG INJ IV ×5 (00:19→21:26)
[2018-09-13] MEDS: metroNIDAZOLE 500 MG/100 ML PIGGYBACK 100 MG IV ×5 (01:34→23:49)
[2018-09-13] MEDS: SODIUM CHLORIDE 0.9% 1,000 ML 125 ML IV ×2 (06:30→16:24)
[2018-09-13] MEDS: ONDANSETRON 4 MG/2 ML INJ IV ×3 (06:40→21:35)
[2018-09-13] MEDS: NYSTATIN CREAM 30 GM 1 APPLIC TOP ×2 (10:45→22:35)
[2018-09-13 12:54] LABS: Clostridium Difficile Tox PCR Negative for C. diff
--- NOTE | 2018-09-13 15:33 | P.PN_ITS ---
Subjective Date Patient Seen: 09/13/18 Time Patient Seen: 12:20 Interval history: DENIED ANY FEVER OR CHILLS NO DIARRHEA CONT TO REPORT RUQ PAIN ONLY RELIEVED BY DILAUDID SOME NAUSEA REPORTED WELL SPOKE TO PATIENT WITH FAMILY FRIENDS AT BEDSIDE Exam Vital Signs (past 8 hours): - 09/13/18 07:56 09/13/18 12:05 Temperature 98.4 F 98.7 F Pulse Rate 102 H 98 H Respiratory Rate 18 17 Blood Pressure 108/72 102/59 L Pulse Oximetry 94 94 Oxygen Delivery Method Room Air Oxygen Flow Rate 0 Const General: cooperative, healthy appearing, comfortable and other (POOR DENTITION) Nutritional Appearance: obese [facility] Head: normal to inspection, normocephalic and atraumatic Nose: external nose normal Face and sinus: normal facial exam Eyes General: appearance normal, both eyes and all related structures Alignment and Position: alignment normal and position normal Conjunctivae: conjunctivae normal Sclera: sclerae normal Pupils: PERRL Neck Neck: normal visual inspection, full ROM, no meningeal signs, trachea midline and supple Thyroid: thyroid normal Resp Effort & Inspection: normal respiratory effort and able to speak in complete sentences Auscultation: clear to auscultation bilaterally and diminished lung sounds (AT THE BASES ) Cardio Palpation: normal PMI Rate: regular rate Heart Sounds: S1 normal and S2 normal GI Inspection: normal to inspection and obesity Palpation: soft and no hepatosplenomegaly Percussion: normal to percussion Auscultation: normal bowel sounds General: bimanual renal exam normal bilaterally External Female Exam: external appearance normal Speculum Exam - Vagina: normal appearance of the vagina Back/Spine/Pelvis Back: normal to inspection Cervical Spine: normal cervical lordosis Thoracic/Lumbar Spine: thoracic and lumbar spine normal to inspection Skin General: no rashes or lesions noted, elasticity normal and turgor normal Lesions: no lesions Rashes: no rashes Neuro General: alert, awake, oriented x3, gait normal and CN's II-XI intact bilaterally Cranial Nerves: CN's II-XI intact bilaterally Gait: normal gait Extrem General: normal to inspection and no joint enlargement Right upper extremity: normal to inspection, full ROM and no joint enlargement Psych Appearance: grossly normal Mental Status: mental status grossly normal Thought Process: normal Judgment: judgment good Objective Labs Result Diagrams: 09/11/18 05:31 09/10/18 08:34 Labs: Laboratory Results - last 24 hr 09/12/18 Unknown C. difficile Tox (PCR) Negative for c. diff Assessment & Plan Plan: Assessment/Plan Narrative: IMPRESSION 1- ACUTE DIVERTICULITIS; ON ABX 2- OBESITY; OUTPATIENT MANAGEMENT 3- POSS OPIOID SEEKING BEHAVIOR; COUNSELING GIVEN 4- NAUSEA; PRN MEDS INDICATED 5- ANEMIA OF CD; MONITOR HH CLOSELY 6- THROMBOCYTOSIS; DUE TO INFECTIOUS PROCESS 7- POOR DENTITION/HYGIENE; COUNSELING GIVEN 8- IBS PER HX; GI TO MANAGE OUTPATIENT 9- PTSD; OUTPATIENT MANAGEMENT; CONT CURRENT MEDS PLAN ASSISTANCE FROM SURG TEAM NOTED AND APPRECIATED GREATLY CONT CURRENT ABX FOR NOW WILL CONT CURRENT PAIN MANAGEMENT BUT SWITCH TO ORAL TABS ONCE INDICATED WILL ADD BENADRYL FOR NAUSEA/ITCHING DAILY LABS TO FOLLOW ENCOURAGE AMB CARLOS MANUEL CONT BOWEL REST FOR NOW RESTART ON CLEARS WHEN OK WITH SURG TEAM REPEAT ABD IMAGING SERIALLY TO FOLLOW INDICATED ENCOURAGE ORAL FLUID INTAKE TREAT SX WITH PRN MEDS INDICATED ADDITIONAL MANAGEMENT INDICATED CLINICALLY DC PER CLINICAL COURSE Quality VTE Deep Vein Thrombosis/Pulmonary Embolism Present on Admission: No
--- NOTE | 2018-09-13 15:52 | CM.DPC ---
DCP Cont: Met with patient, gave this spring encaser phone numbers for [employer]. operational risk manager, Mk. His number is [phone] ext [phone]. 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 Her [place] [phone]. May need authorization for home health. Spoke to Mk, stated it would be better to talk to her sugar plantation manager. Did reach Lea. Wants her phone number to given at what ever agency is chosen. Does not need authorization. Lea's regular phone number is [phone]. She stated that we can pass this number on to agency of choice for home health, in case there is trouble with payment. P: DCP to continue to follow. May need to contact Lea at [facility] [employer] when patient is ready for discharge for auth for home health. Courtney Arce, RN/Eyelet Maker
[2018-09-13] MEDS: diphenhydrAMINE 50 MG/ML VIAL 12.5 MG IV ×2 (18:08→23:51)
[2018-09-14] VITALS (7 sets, daily range): BP systolic 93–109; BP diastolic 53–71; PULSE 86–94; RESP 14–18; TEMP 36.4–37.1; O2SAT 92–98
[2018-09-14] MEDS: HYDROMORPHONE 2 MG INJ IV ×3 (01:40→20:11)
[2018-09-14] MEDS: TIGECYCLINE 50 MG in SODIUM CHLORIDE 0.9% 100 ML IV ×2 (01:54→13:26)
[2018-09-14] MEDS: ONDANSETRON 4 MG/2 ML INJ IV ×2 (01:56→08:55)
[2018-09-14] MEDS: SODIUM CHLORIDE 0.9% 1,000 ML 125 ML IV ×2 (03:30→15:47)
[2018-09-14] MEDS: metroNIDAZOLE 500 MG/100 ML PIGGYBACK 100 MG IV ×4 (06:05→23:42)
[2018-09-14] MEDS: PREGABALIN 75 MG CAPSULE 225 MG PO ×2 (08:55→20:10)
[2018-09-14] MEDS: NYSTATIN CREAM 30 GM 1 APPLIC TOP ×2 (09:05→20:11)
--- NOTE | 2018-09-14 09:30 | PM.PN.1 ---
Subjective Date Patient Seen: 09/14/18 Time Patient Seen: 09:00 Interval history: Patient under treatment for presumed diverticulitis in the right colon. She states that she is still having nausea and abdominal pain. Having diarrhea as well. Exam Vital Signs (past 8 hours): - 09/14/18 06:15 09/14/18 08:00 Temperature 98.2 F 98.2 F Pulse Rate 94 H 91 H Respiratory Rate 16 16 Blood Pressure 109/66 93/59 L Pulse Oximetry 94 98 Oxygen Delivery Method Room Air Oxygen Flow Rate 0 Narrative Exam Narrative: Lungs are clear to auscultation. Report no rales or rhonchi. Heart regular rate and rhythm without murmur gallop. Her abdomen is much softer than when I initially saw her. She has some mild tenderness in the right upper abdomen. Objective Labs Result Diagrams: 09/11/18 05:31 09/10/18 08:34 Labs: Laboratory Results - last 24 hr 09/12/18 Unknown C. difficile Tox (PCR) Negative for c. diff Assessment & Plan Plan: Assessment/Plan Narrative: Patient clinically and proving despite complaints. She is a difficult patient to read. Talked to her about ambulating and continuing to deep breathe. Told we were trying very hard not to operate on her. She was in agreement with that plan. C diff testing was negative. Will continue broad-spectrum IV antibiotics. Check labs. Continue DVT prophylaxis. Quality VTE Deep Vein Thrombosis/Pulmonary Embolism Present on Admission: No
[2018-09-14] MEDS: diphenhydrAMINE 50 MG/ML VIAL 12.5 MG IV ×2 (12:58→21:44)
--- NOTE | 2018-09-14 13:51 | PM.PN.1 ---
Subjective Date Patient Seen: 09/14/18 Time Patient Seen: 13:52 Interval history: Follow-up on acute diverticulitis Patient seen at bedside. No acute overnight events. Patient states her nausea is improving, and she has not vomited. She still has on and off pain in her right lower quadrant. The day before patient was not able to tolerate clear liquid diet, but is willing to try today. No fevers overnight Exam Vital Signs (past 8 hours): - 09/14/18 06:15 09/14/18 08:00 09/14/18 11:37 Temperature 98.2 F 98.2 F 98.5 F Pulse Rate 94 H 91 H 89 Respiratory Rate 16 16 15 Blood Pressure 109/66 93/59 L 97/54 L Pulse Oximetry 94 98 92 09/14/18 11:43 Temperature Pulse Rate 90 Respiratory Rate 14 Blood Pressure Pulse Oximetry 96 Fraction of Inspired Oxygen 21 Oxygen Delivery Method Room Air Oxygen Flow Rate 0 Narrative Exam Narrative: General: No acute distress, AAO x3 HEENT: PERRLA bilaterally Neck: Supple, no LAD CV: Regular rate and rhythm, no murmurs Respiratory: CTA bilaterally, no wheezing or crackles GI: Tenderness to deep palpation in right lower quadrant. Positive bowel sounds throughout all blair Musculoskeletal: Weakness in lower extremities bilaterally Skin: Slight gluteal decubitus ulcer, bandaged Objective Labs Result Diagrams: 09/11/18 05:31 09/10/18 08:34 Assessment & Plan Plan: Assessment/Plan Narrative: 1. Acute diverticulitis - surgery consulted, recommend to continue IV antibiotics -blood cultures negative -will advance to clear liquid diet and see if patient tolerates -continue tigecycline and metronidazole at this time -Zofran as needed for nausea -Dilaudid as needed for pain control 2. Obesity -diet counseling 3. Anemia of chronic disease -hemoglobin slowly downtrending -continue to monitor 4. Thrombocytosis -improving -Continue to monitor 5. IBS -outpatient GI workup 6. PTSD -follow up with primary care outpatient 7. Bilateral lower extremity weakness -continue pregabalin b.i.d.. Follow up with Neurology outpatient Quality VTE Deep Vein Thrombosis/Pulmonary Embolism Present on Admission: No
[2018-09-14] MEDS: ACETAMINOPHEN 325 MG TABLET 650 MG PO (16:30)
[2018-09-14 22:31] LABS: Acinetobacter baumannii Not Detected (Not Detect); Candida albicans Not Detected (Not Detect); Candida glabrata Not Detected (Not Detect); Candida krusei Not Detected (Not Detect); Candida parapsilosis Not Detected (Not Detect); Candida tropicalis Not Detected (Not Detect); E. coli Not Detected (Not Detect); Enterobacter cloacae complex Not Detected (Not Detect); Enterobacteriaceae species Not Detected (Not Detect); Enterococcus species Not Detected (Not Detect); Haemophilus influenzae Not Detected (Not Detect); Listeria monocytogenes Not Detected (Not Detect); Neisseria meningitidis Not Detected (Not Detect); Proteus species Not Detected (Not Detect); Pseudomonas aeruginosa Not Detected (Not Detect); Serratia marcescens Not Detected (Not Detect); Staphylococcus species Not Detected (Not Detect); Streptococcus agalactiae (Gr B Not Detected (Not Detect); Streptococcus pneumonia Not Detected (Not Detect); Streptococcus pyogenes (Gr A) Not Detected (Not Detect); Streptococcus species Not Detected (Not Detect)
[2018-09-15] VITALS (7 sets, daily range): BP systolic 96–108; BP diastolic 54–81; PULSE 84–96; RESP 16–17; TEMP 36.7–37.5; O2SAT 90–98
--- NOTE | 2018-09-15 | DI.CT.S_ITS ---
PROCEDURE: CT ABDOMEN PELVIS W CON INDICATIONS: ABDOMINAL PAIN, REFRACTORY TO MANAGEMENT TECHNIQUE: After the administration of oral and intravenous contrast, 5 mm thick sections acquired from the diaphragms to the symphysis. 5 mm thick coronal and sagittal reformats were performed. For radiation dose reduction, the following was used: automated exposure control, adjustment of mA and/or kV according to patient size. COMPARISON: [facility], CT, CT ABDOMEN PELVIS W CON, 09/09/2018, 20:25. FINDINGS: Image quality: Excellent. ABDOMEN: Lung bases: Dependent changes are present within the bases, left greater than right. Solid organs: Liver is enlarged with steatosis. Gallbladder has been removed. Biliary system is non-dilated. Pancreas enhances normally. Spleen is normal in size and enhancement. No adrenal nodules. Kidneys are normal in size and enhancement, without hydronephrosis. Left renal cyst is noted. Peritoneum and bowel: There is an appearance of mildly dilated fluid-filled loops of small bowel. Mild dependent pelvic fluid is present. Portions of the ascending and descending colon are incompletely distended. Nodes and vessels: No retroperitoneal or mesenteric adenopathy. Aorta and inferior vena cava are normal in caliber. Miscellaneous: No ventral hernias. PELVIS: Genitourinary: Bladder wall thickness is normal. Miscellaneous: No inguinal hernias or adenopathy. Bones: No suspicious bony lesions. No vertebral body compression fractures. IMPRESSION: 1. Mildly prominent fluid filled loops of small bowel as above. This could represent ileus versus developing partial small bowel obstruction. 2. Mild persistent appearance of thickening within the ascending and descending colon, with minimal surrounding inflammatory change. Findings could be reflective of low-grade colitis. 3. Mild dependent pelvic fluid. Dictated by: Cynthia Orellana M.D. on 09/15/2018 at 11:56 Approved by: Cynthia Orellana M.D. on 09/15/2018 at 12:03
[2018-09-15] MEDS: TIGECYCLINE 50 MG in SODIUM CHLORIDE 0.9% 100 ML IV ×2 (01:16→12:00)
[2018-09-15] MEDS: SODIUM CHLORIDE 0.9% 1,000 ML 125 ML IV ×3 (02:12→22:12)
[2018-09-15] MEDS: HYDROMORPHONE 2 MG INJ IV ×3 (04:21→19:46)
[2018-09-15 05:49] LABS: Add Manual Diff / Slide Review NO; Basophils Percent Auto 0.5 % (0-2); Eosinophils Percent Auto 4.5 % (2-4); Hematocrit 32.1 % (36-46); Hemoglobin 10.4 g/dL (12.0-16.0); Lymphocytes Percent Auto 22.7 % (25-40); Mean Corpuscular HGB Conc 32.4 % (30-36); Mean Corpuscular Hemoglobin 25.8 PG (26-34); Mean Corpuscular Volume 79.6 fL (80-100); Monocytes Percent Auto 12.8 % (3-14); Neutrophils Absolute Auto 3700 /uL (3000-5900); Neutrophils Percent Auto 59.5 % (50-75); Platelet Count 403 X10^3/uL (150-400); Red Blood Cell Count 4.03 X10^6/uL (4.0-5.2); Red Cell Distribution Width 17.1 % (11.6-14.8); White Blood Cell Count 6.2 X10^3/uL (4.5-11.0)
[2018-09-15 06:02] LABS: Calcium 7.5 mg/dL (8.4-10.2); Carbon Dioxide 29 mmol/L (22-32); Chloride 104 mmol/L (98-107); Estimated Glomerular Filt Rate > 60.0 mL/min (>60); Glucose 102 mg/dL (70-100); HEMOLYSIS < 15 (0-50); Potassium 3.2 mmol/L (3.4-5.1); Sodium 142 mmol/L (137-145)
[2018-09-15 06:05] LABS: Blood Urea Nitrogen < 2 mg/dL (7-17)
[2018-09-15] MEDS: metroNIDAZOLE 500 MG/100 ML PIGGYBACK 100 MG IV (06:08)
[2018-09-15 06:12] LABS: Procalcitonin < 0.05 ng/mL (<0.5)
[2018-09-15] MEDS: ACETAMINOPHEN 325 MG TABLET 650 MG PO ×3 (08:16→22:14)
[2018-09-15] MEDS: NYSTATIN CREAM 30 GM 1 APPLIC TOP ×2 (08:17→22:15)
[2018-09-15] MEDS: LORATADINE 10 MG TABLET PO (08:17)
[2018-09-15] MEDS: PREGABALIN 75 MG CAPSULE 225 MG PO ×2 (08:17→22:14)
--- NOTE | 2018-09-15 11:35 | PM.PN.1 ---
Subjective Date Patient Seen: 09/15/18 Time Patient Seen: 11:37 Interval history: Follow-up on acute diverticulitis Patient seen at bedside. No acute overnight events. Patient continues to have right lower quadrant abdominal pain, that is now worsening, as per patient. She is still nauseous, although have not vomited. The patient was able to tolerate clear liquid diet, but believes that her pain is getting worse with clear liquids. No fevers or chills overnight. Exam Vital Signs (past 8 hours): - 09/15/18 05:51 09/15/18 06:15 09/15/18 08:00 Temperature 99.5 F 98.8 F Pulse Rate 93 H 91 H Respiratory Rate 16 16 Blood Pressure 96/54 L 100/67 Pulse Oximetry 90 L 95 97 Fraction of Inspired Oxygen 21 Oxygen Delivery Method Room Air Oxygen Flow Rate 1 Narrative Exam Narrative: General: No acute distress, AAO x3 HEENT: PERRLA bilaterally Neck: Supple, no LAD CV: Regular rate and rhythm, no murmurs Respiratory: CTA bilaterally, no wheezing or crackles GI: Tenderness to deep palpation in right lower quadrant. Positive bowel sounds throughout all blair Musculoskeletal: Weakness in lower extremities bilaterally Skin: Slight gluteal decubitus ulcer, bandaged Objective Labs Result Diagrams: 09/15/18 05:12 09/15/18 05:12 Labs: Laboratory Results - last 24 hr 09/14/18 09/15/18 09/15/18 21:00 05:12 05:12 WBC 6.2 RBC 4.03 Hgb 10.4 L Hct 32.1 L MCV 79.6 L MCH 25.8 L MCHC 32.4 RDW 17.1 H Plt Count 403 H Neut % (Auto) 59.5 Lymph % (Auto) 22.7 L [place] % (Auto) 12.8 Eos % (Auto) 4.5 H Baso % (Auto) 0.5 Neut # (Auto) 3700 Sodium Potassium Chloride Carbon Dioxide BUN Creatinine Estimated GFR BUN/Creatinine Ratio Glucose Calcium Procalcitonin < 0.05 A. baumannii (PCR) Not detected Daphne albicans (PCR) Not detected C. glabrata (PCR) Not detected C. krusei (PCR) Not detected C. parapsilosis (PCR) Not detected C. tropicalis (PCR) Not detected Enterobacteriac sp PCR Not detected E. cloacae complex PCR Not detected Enterococcus sp PCR Not detected E. coli (PCR) Not detected H. influenzae (PCR) Not detected Klebsiella oxytoca PCR Not detected Klebsiella pneumoniae Not detected List. monocytogenes PCR Not detected N. meningitidis (PCR) Not detected Proteus species (PCR) Not detected Serratia marcescens PCR Not detected Staphylococcus sp PCR Not detected Staph aureus (PCR) Not detected mecA-Methicil Res Gene Not Reportable Streptococcus sp PCR Not detected Group A Strep (PCR) Not detected Strep agalactiae (PCR) Not detected Strep pneumoniae (PCR) Not detected P. aeruginosa (PCR) Not detected Coty/B-Vanco Res Genes Not Reportable KPC-Carbap Res Gene PCR Not Reportable 09/15/18 05:12 WBC RBC Hgb Hct MCV MCH MCHC RDW Plt Count Neut % (Auto) Lymph % (Auto) [place] % (Auto) Eos % (Auto) Baso % (Auto) Neut # (Auto) Sodium 142 Potassium 3.2 L Chloride 104 Carbon Dioxide 29 BUN < 2 L Creatinine 0.50 L Estimated GFR > 60.0 BUN/Creatinine Ratio 4.0 L Glucose 102 H Calcium 7.5 L Procalcitonin A. baumannii (PCR) Daphne albicans (PCR) C. glabrata (PCR) C. krusei (PCR) C. parapsilosis (PCR) C. tropicalis (PCR) Enterobacteriac sp PCR E. cloacae complex PCR Enterococcus sp PCR E. coli (PCR) H. influenzae (PCR) Klebsiella oxytoca PCR Klebsiella pneumoniae List. monocytogenes PCR N. meningitidis (PCR) Proteus species (PCR) Serratia marcescens PCR Staphylococcus sp PCR Staph aureus (PCR) mecA-Methicil Res Gene Streptococcus sp PCR Group A Strep (PCR) Strep agalactiae (PCR) Strep pneumoniae (PCR) P. aeruginosa (PCR) Coty/B-Vanco Res Genes KPC-Carbap Res Gene PCR Assessment & Plan Plan: Assessment/Plan Narrative: 1. Acute diverticulitis -RLQ pain is not improving despite 6 day course of antibiotic therapy -surgery consulted, recommend to continue IV antibiotics -blood cultures negative -will place patient back to NPO status and repeat CT abd/pelvis with contrast to rule out formation of abscess -continue tigecycline and metronidazole at this time -Zofran as needed for nausea -Dilaudid as needed for pain control 2. Obesity -diet counseling 3. Anemia of chronic disease -hemoglobin stable -continue to monitor 4. Thrombocytosis -improving -Continue to monitor 5. IBS -outpatient GI workup 6. PTSD -follow up with primary care outpatient 7. Bilateral lower extremity weakness -continue pregabalin b.i.d.. Follow up with Neurology outpatient Quality VTE Deep Vein Thrombosis/Pulmonary Embolism Present on Admission: No
[2018-09-15] MEDS: POTASSIUM CHLORIDE 20 MEQ TAB 40 MEQ PO (14:05)
--- NOTE | 2018-09-15 14:08 | PM.PN.1 ---
Subjective Date Patient Seen: 09/15/18 Time Patient Seen: 14:08 Interval history: Patient continues to complain of moderate abdominal pain mostly in the right lateral abdomen radiating toward the right lower quadrant. Occasional mild epigastric pain but no nausea or vomiting. She was tolerating liquids up until this morning but was made NPO for a CT scan ordered per the internal medicine service. She tolerated the entire bottle of oral contrast without any issue. In fact, she states that the contrast actually taste quite good. She feels mildly hungry but is somewhat fearful of solid food at this time. Continues to have multiple loose bowel movements per day. In fact, she states that she has fecal urgency and occasional incontinence. Denies blood or melena in the stool. No subjective fever or chills. No pain elsewhere. No chest pain or shortness of breath. Exam Vital Signs (past 8 hours): - 09/15/18 06:15 09/15/18 08:00 09/15/18 12:00 Temperature 98.8 F 98.2 F Pulse Rate 91 H 84 Respiratory Rate 16 16 Blood Pressure 100/67 104/64 Pulse Oximetry 95 97 96 Fraction of Inspired Oxygen 21 Oxygen Delivery Method Room Air Oxygen Flow Rate 1 Narrative Exam Narrative: Patient resting comfortably in bed in no acute distress. Alert oriented x3 She has been completely afebrile with normal sinus rhythm. Normal blood pressure. Chest clear auscultation Abdomen is soft and minimally tender in the right upper quadrant and right lateral abdomen areas. Certainly no guarding or rebound. No mass. Extremities show no clubbing, cyanosis, or edema Objective Labs Result Diagrams: 09/15/18 05:12 09/15/18 05:12 Labs: Laboratory Results - last 24 hr 09/14/18 09/15/18 09/15/18 21:00 05:12 05:12 WBC 6.2 RBC 4.03 Hgb 10.4 L Hct 32.1 L MCV 79.6 L MCH 25.8 L MCHC 32.4 RDW 17.1 H Plt Count 403 H Neut % (Auto) 59.5 Lymph % (Auto) 22.7 L [place] % (Auto) 12.8 Eos % (Auto) 4.5 H Baso % (Auto) 0.5 Neut # (Auto) 3700 Sodium Potassium Chloride Carbon Dioxide BUN Creatinine Estimated GFR BUN/Creatinine Ratio Glucose Calcium Procalcitonin < 0.05 A. baumannii (PCR) Not detected Daphne albicans (PCR) Not detected C. glabrata (PCR) Not detected C. krusei (PCR) Not detected C. parapsilosis (PCR) Not detected C. tropicalis (PCR) Not detected Enterobacteriac sp PCR Not detected E. cloacae complex PCR Not detected Enterococcus sp PCR Not detected E. coli (PCR) Not detected H. influenzae (PCR) Not detected Klebsiella oxytoca PCR Not detected Klebsiella pneumoniae Not detected List. monocytogenes PCR Not detected N. meningitidis (PCR) Not detected Proteus species (PCR) Not detected Serratia marcescens PCR Not detected Staphylococcus sp PCR Not detected Staph aureus (PCR) Not detected mecA-Methicil Res Gene Not Reportable Streptococcus sp PCR Not detected Group A Strep (PCR) Not detected Strep agalactiae (PCR) Not detected Strep pneumoniae (PCR) Not detected P. aeruginosa (PCR) Not detected Coty/B-Vanco Res Genes Not Reportable KPC-Carbap Res Gene PCR Not Reportable 09/15/18 05:12 WBC RBC Hgb Hct MCV MCH MCHC RDW Plt Count Neut % (Auto) Lymph % (Auto) [place] % (Auto) Eos % (Auto) Baso % (Auto) Neut # (Auto) Sodium 142 Potassium 3.2 L Chloride 104 Carbon Dioxide 29 BUN < 2 L Creatinine 0.50 L Estimated GFR > 60.0 BUN/Creatinine Ratio 4.0 L Glucose 102 H Calcium 7.5 L Procalcitonin A. baumannii (PCR) Daphne albicans (PCR) C. glabrata (PCR) C. krusei (PCR) C. parapsilosis (PCR) C. tropicalis (PCR) Enterobacteriac sp PCR E. cloacae complex PCR Enterococcus sp PCR E. coli (PCR) H. influenzae (PCR) Klebsiella oxytoca PCR Klebsiella pneumoniae List. monocytogenes PCR N. meningitidis (PCR) Proteus species (PCR) Serratia marcescens PCR Staphylococcus sp PCR Staph aureus (PCR) mecA-Methicil Res Gene Streptococcus sp PCR Group A Strep (PCR) Strep agalactiae (PCR) Strep pneumoniae (PCR) P. aeruginosa (PCR) Coty/B-Vanco Res Genes KPC-Carbap Res Gene PCR All culture data remain negative currently. Procalcitonin is completely normal. White blood cell count is normal as well with no left shift. I have personally reviewed her CT scan of the abdomen and pelvis done today per the internal medicine service and compared this with her admission studies. There is essentially no change demonstrating stable thickening and inflammatory changes of the colon. Of note, the patient informs me that she did undergo colonoscopy 2 or 3 years ago at [facility] under the care of Dr. Wellington for similar symptoms. She was diagnosed with colitis at that time but does not recall any specific type. She recalls that she was told to avoid NSAIDs and she has done so since that time. Those records are not currently available. Assessment & Plan Plan: Assessment/Plan Narrative: 33-year-old female with colitis of unclear etiology. I highly doubt ischemic colitis in a watershed distribution given the patient's young age and low risk factors for vascular disease. No evidence of mesenteric thrombosis as well. Furthermore, her symptoms simply are not consistent with mesenteric ischemia. Possibility of inflammatory bowel disease although the small bowel does not appear particularly abnormal. I see no evidence of infectious etiology given lack of fever, normal white blood cell count, and normal procalcitonin although she has been on antibiotics since admission. From my perspective we could discontinue the antibiotics since no obvious infectious source exists at this time. She may have clear liquids at this point also from my perspective. I did discuss repeating the patient's colonoscopy during this admission. She understands this would require a bowel preparation. She has done well with Suprep in the past. I will try to obtain this for her since I do not believe she would tolerate a GoLYTELY prep. If so then we can potentially proceed with colonoscopy tomorrow or the following day. All questions were answered to her satisfaction, and she voiced understanding. We will proceed as above. Quality VTE Deep Vein Thrombosis/Pulmonary Embolism Present on Admission: No
--- NOTE | 2018-09-15 17:05 | PC.NURSE ---
bowel prep started at 1700 with pt instructed on consumption.
[2018-09-16] VITALS (18 sets, daily range): BP systolic 77–127; BP diastolic 46–73; PULSE 67–93; RESP 10–20; TEMP 36.2–37.2; O2SAT 92–98
--- NOTE | 2018-09-16 | PATH_ITS ---
[facility] Accession Number: [id number] . 01 Material submitted: . PART A: ANTRAL BIOPSIES PART B: TERMINAL ILEUM BIOPSIES PART C: CECAL BIOPSIES PART D: ASCENDING COLON BIOPSIES AT 65 PART E: DESCENDING COLON BIOPSIES AT 45 PART F: SIGMOID BIOPSIES AT 25 PART G: RECTAL BIOPSIES . 02 Diagnosis: A. Antrum, Biopsies: Gastric antral and body mucosa with chronic gastritis. No evidence of Helicobacter organisms on H/E stain; an immunohistochemical stain is pending and results will be issued in an addendum. Negative for intestinal metaplasia, dysplasia or malignancy. . B. Terminal Ileum, Biopsies: Ileal mucosa with no diagnostic abnormality. Negative for active inflammation, granulomata, dysplasia or malignancy. . C. Cecum, Biopsies: Detached fragment of ulcer/granulation tissue, suggestive of inflammatory polyp. Negative for dysplasia or malignancy. . D. Ascending Colon at 65 cm, Biopsy: Detached fragment of ulcer/granulation tissue, suggestive of inflammatory polyp. Negative for dysplasia or malignancy. . E. Descending Colon at 45 cm, Biopsies: Patchy moderately active colitis; please see comment. Negative for granulomata, dysplasia or malignancy. . F-G: Sigmoid at 25 cm, Rectum, Biopsies: Colonic mucosa with no significant diagnostic abnormality. Negative for active inflammation, granulomata, dysplasia or malignancy. MRV/09/20/2018 . 02 Comment: The overall findings in this case raise a differential diagnosis including infection, drug/toxin-induced injury and, in the appropriate clinical setting, idiopathic inflammatory bowel disease. . 02 Electronically signed: . Wilbur Rivas MD, PhD, Pathologist NPI- [id number] . 01 Gross description: . Received seven formalin-filled containers each labeled with the patient's name. . A. In a container labeled antral are three 0.1 to 0.4 cm portions of tissue. Entirely submitted in cassette A. B. In a container labeled terminal ileum are four less than 0.1 to 0.2 cm portions of tissue. Entirely submitted in cassette B. C. In a container labeled cecal, the specimen consists of a 0.2 cm portion of tissue. Entirely submitted in cassette C. D. In a container labeled ascending colon at 65 are multiple less than 0.1 to 0.2 cm portions of tissue. Filtered, wrapped and entirely submitted in cassette D. E. In a container labeled descending colon at 45 are four less than 0.1 to 0.2 cm portions of tissue. Entirely submitted in cassette E. F. In a container labeled sigmoid at 25 are two 0.1 to 0.2 cm portions of tissue. Entirely submitted in cassette F. G. In a container labeled rectal are four 0.1 to 0.2 cm portions of tissue. Entirely submitted in cassette G. ([facility]:[id number]) /[facility] . 02 Pathologist provided ICD-10: K29.70, K52.9 . 02 CPT . 350362, 607842, 722963, 838463, 231061, 178742, [id number], [id number] Performed at: 01 [facility] [address] [place] [address], [place], [place] [id number] MD Jeremiah Chau MD Phone: [phone] Performed at: 02 [facility] [address] [place], [place] [id number] MD Renae Bishop MD Phone: [phone]
[2018-09-16 05:40] LABS: Add Manual Diff / Slide Review NO; Basophils Percent Auto 0.6 % (0-2); Eosinophils Percent Auto 4.2 % (2-4); Hematocrit 34.5 % (36-46); Mean Corpuscular HGB Conc 31.9 % (30-36); Mean Corpuscular Hemoglobin 25.3 PG (26-34); Mean Corpuscular Volume 79.4 fL (80-100); Monocytes Percent Auto 10.2 % (3-14); Neutrophils Absolute Auto 2900 /uL (3000-5900); Platelet Count 454 X10^3/uL (150-400); Red Blood Cell Count 4.35 X10^6/uL (4.0-5.2); Red Cell Distribution Width 16.7 % (11.6-14.8); White Blood Cell Count 6.3 X10^3/uL (4.5-11.0)
[2018-09-16 05:46] LABS: Calcium 7.8 mg/dL (8.4-10.2); Carbon Dioxide 29 mmol/L (22-32); Chloride 105 mmol/L (98-107); Estimated Glomerular Filt Rate > 60.0 mL/min (>60); Glucose 99 mg/dL (70-100); HEMOLYSIS < 15 (0-50); Potassium 3.7 mmol/L (3.4-5.1); Sodium 141 mmol/L (137-145)
[2018-09-16 05:50] LABS: Blood Urea Nitrogen < 2 mg/dL (7-17)
[2018-09-16] MEDS: SODIUM CHLORIDE 0.9% 1,000 ML 125 ML IV ×2 (06:01→21:36)
[2018-09-16] MEDS: HYDROMORPHONE 2 MG INJ IV ×2 (09:56→21:36)
[2018-09-16] MEDS: PREGABALIN 75 MG CAPSULE 225 MG PO (09:56)
--- NOTE | 2018-09-16 10:38 | PC.NURSE ---
Pt is mostly sleeping. Colonoscopy and EGD deferred until 100/ Pt okay with that. Requesting Dilaudid IV for pain which was given. Bowel prep completed with yellowish colored clear return.
--- NOTE | 2018-09-16 10:44 | PM.PREOP ---
Pre-operative Note Interval Note Pre-op Check: Yes History & Physical Reviewed by Physician and Yes Exam Performed Changes: No H&P completed within 30 days and has changed as indicated here:: Patient seen and examined again this morning. Bowel preparation has been completed per orders. No changes otherwise to her history and physical examination completed within the last 30 days. No changes to the surgical consultation note and my progress notes during this admission over the last several days. Therefore proceed with EGD and colonoscopy today as planned.
--- NOTE | 2018-09-16 12:00 | PM.PN.1 ---
Subjective Date Patient Seen: 09/16/18 Time Patient Seen: 12:00 Interval history: Follow-up on acute diverticulitis Patient seen at bedside. No acute overnight events. Patient continues to have right lower quadrant abdominal pain despite being NPO. CT of the abdomen and pelvis was repeated yesterday which was concerning for colitis. Discussed with surgery, who believed the patient would benefit from colonoscopy to look for causes of colitis. No fever or chills, no leukocytosis. Exam Vital Signs (past 8 hours): - 09/16/18 06:09 Temperature 97.4 F L Pulse Rate 89 Respiratory Rate 16 Blood Pressure 106/73 Pulse Oximetry 98 Fraction of Inspired Oxygen 21 Oxygen Delivery Method Room Air Oxygen Flow Rate 0 Narrative Exam Narrative: General: No acute distress, AAO x3 HEENT: PERRLA bilaterally Neck: Supple, no LAD CV: Regular rate and rhythm, no murmurs Respiratory: CTA bilaterally, no wheezing or crackles GI: Tenderness to deep palpation in right lower quadrant. Positive bowel sounds throughout all blair Musculoskeletal: Weakness in lower extremities bilaterally Skin: Slight gluteal decubitus ulcer, bandaged Objective Labs Result Diagrams: 09/16/18 05:14 09/16/18 05:14 Labs: Laboratory Results - last 24 hr 09/16/18 09/16/18 05:14 05:14 WBC 6.3 RBC 4.35 Hgb 11.0 L Hct 34.5 L MCV 79.4 L MCH 25.3 L MCHC 31.9 RDW 16.7 H Plt Count 454 H Neut % (Auto) 46.0 L Lymph % (Auto) 39.0 [place] % (Auto) 10.2 Eos % (Auto) 4.2 H Baso % (Auto) 0.6 Neut # (Auto) 2900 L Sodium 141 Potassium 3.7 Chloride 105 Carbon Dioxide 29 BUN < 2 L Creatinine 0.50 L Estimated GFR > 60.0 BUN/Creatinine Ratio 4.0 L Glucose 99 Calcium 7.8 L Assessment & Plan Plan: Assessment/Plan Narrative: 1. Acute right lower quadrant pain -received 6 day course of antibiotic therapy for presumed acute diverticulitis without any improvement. Now suspecting colitis of unclear etiology -blood cultures negative -CT of abdomen and pelvis with contrast repeated which showed mildly prominent fluid-filled loops of small bowel which could represent ileus versus partial small bowel obstruction as well as thickening within the ascending and descending colon with minimal surrounding inflammatory change, which could be reflect a low-grade colitis -discussed with surgery, recommend colonoscopy, for which patient will go today -will stop antibiotics at this time, since patient is not benefitting and acute diverticulitis is less likely diagnosis now -Zofran as needed for nausea -Dilaudid as needed for pain control 2. Obesity -diet counseling 3. Anemia of chronic disease -hemoglobin stable -continue to monitor 4. Thrombocytosis -improving -Continue to monitor 5. IBS -outpatient GI workup 6. PTSD -follow up with primary care outpatient 7. Bilateral lower extremity weakness -continue pregabalin b.i.d.. Follow up with Neurology outpatient Quality VTE Deep Vein Thrombosis/Pulmonary Embolism Present on Admission: No
[2018-09-16] MEDS: LACTATED RINGERS 1,000 ML 42 ML IV ×3 (14:00→16:14)
--- NOTE | 2018-09-16 14:00 | CM.DPC ---
DCP: continued: case discussed in Team Rounds this morning. Dr. Grullon and Dr. Perez conferred yesterday. EGC and colonoscopy are scheduled for this afternoon. Full dx and tx plan remain in process. DCP team will continue to follow. If pt does go home at d/c consider HH services and with the coordination suggested by Kianna Lyon in her last progress note.
--- NOTE | 2018-09-16 14:09 | SUR.HOLD ---
PT STATES SHE HAS PRESSURE SORE ON BACKSIDE, SKIN RED AND EXCORIATED AND AN OPEN AREA SORE IN BETWEEN BUTT CHEEKS, THERE IS A SMALL BAND AID ON IN BETWEEN BUTT CHEEKS
--- NOTE | 2018-09-16 14:49 | SUR.OPER ---
ANESTHESIA PRESENT FOR PROCEDURE
--- NOTE | 2018-09-16 15:06 | PM.OP.1 ---
Operative Date/Time/Diagnoses Date of procedure: 09/16/18 Time of procedure: 15:06 Pre-op diagnosis: Abdominal pain and colitis Post-op diagnosis: other (Significant ulcerating skip lesions of the colon most consistent grossly with active Crohn's disease) Procedure & Clinicians Procedure: 1. Esophagogastroduodenoscopy with cold forceps biopsies 2. Colonoscopy with cold forceps biopsies and hemoclip placement Same procedure as scheduled: Yes Indications: 33-year-old female who was admitted with progressive abdominal pain and history of colitis. She had obvious colitis on CT scan. She was treated initially with antibiotics intravenously without improvement. She continued to have significant pain. Repeat CT scan showed no changes in the thickening of the colon. She was therefore recommended undergo EGD and colonoscopy. She required the services of general anesthesia given significant comorbid medical conditions including known seizure disorder. Surgeon: Neri Perez Click Yes if Unassisted: Yes Anesthesia Type: General Operative Notes Findings: 1. Mildly inflamed terminal ileum but without evidence of significant inflammatory changes, stricture, or ulcerations 2. Adequate bowel preparation 3. Mildly redundant colon requiring abdominal pressure to achieve the cecum 4. No obviously gross strictures currently 5. Significant perianal disease consisting of anal stenosis and multiple fistula tracts without obvious abscess 6. Mild ulceration of the anal canal consistent with inflammatory bowel disease 7. Significant external hemorrhoids and skin tags in the perianal region consistent with chronic inflammatory changes of the anus 8. Ulcerated acutely inflamed skip lesions throughout the right colon, descending colon, and sigmoid colon consistent with inflammatory bowel disease. 9. No evidence of neoplastic changes anywhere throughout the colon or rectum 10. Otherwise grossly normal appearing colonic and rectal mucosa between the above skip lesions. Rectum was grossly normal other than the anal disease distally. 11. All findings are most consistent with Crohn's colitis 12. Mild antral gastritis on upper endoscopy but otherwise completely normal upper gastrointestinal tract Specimens: 1. Antral biopsies 2. Terminal ileum biopsies 3. Cecal biopsies 4. Ascending colon biopsies at 65 cm from the anal verge 5. Descending colon biopsies at 45 cm 6. Sigmoid colon biopsies at 25 cm 7. Rectal biopsies Closure Type: not applicable Specimen(s): other (See above under findings) Implants & Drains: None Estimated Blood Loss (mL): 10 Blood products transfused: none Procedure in detail: After obtaining informed consent, the patient was brought to the GI suite and placed in the left lateral decubitus position on the examination table. After placement of appropriate monitors, the patient was placed under general anesthesia. A time out was held per SCOAP protocol. A bite block was gently placed between the patient's teeth. The endoscope was lubricated and then passed into the patient's posterior oropharynx. The esophagus was cannulated under direct vision and the scope was passed to the second portion of the duodenum without difficulty. The scope was then withdrawn with careful examination of all areas of the upper GI tract and mucosa. In the stomach, the instrument was retroflexed and the GE junction examined. Z-line was 40 cm from the incisors. The scope was straightened and the procedure continued with examination of the remainder of the upper GI tract. Findings are noted above. Air was aspirated from the stomach and the endoscope gently removed from the esophagus. Patient was turned to left lateral decubitus position for colonoscopy. A digital rectal examination was performed and did not reveal any masses or obstructing lesions. The colonoscope was gently passed into the patient's anus and the entire colon navigated to the level of the cecum with minimal difficulty. Terminal ileum was intubated. Once in the cecum, the scope was withdrawn being sure to go before and beyond all mucosal folds and prominences and get an excellent examination. The findings are noted above. A small submucosal arterial bleeding vessel was noted after biopsies were done in the cecum adjacent to the ileocecal valve. Bleeding was controlled with application of a single hemoclip endoscopically. At the level of the rectal vault, the scope was retroflexed and the internal anal canal was examined. The scope was straightened and air aspirated from the colon. The instrument was removed from the patient's body and the procedure was concluded. The patient was allowed to awaken from sedation without difficulty and taken to the post-anesthesia care unit in good condition. Complications: none Condition: stable Disposition: PACU Plan for aftercare: 1. Return to regular surgical floor for ongoing convalescence 2. Begin sulfasalazine therapy 3. Await biopsy results 4. Patient will require urgent gastroenterology consultation for medical management of presumed Crohn's disease
--- NOTE | 2018-09-16 15:44 | SUR.PHASEI ---
stable pacu stay, bp initially low...treated with iv fluids, now at base line.
[2018-09-16] MEDS: HYDROCORTISONE 100 MG/2 ML VIAL IV ×2 (16:56→23:59)
[2018-09-16] MEDS: NYSTATIN CREAM 30 GM 1 APPLIC TOP (21:15)
[2018-09-16] MEDS: sulfaSALAzine 500 MG TABLET 1000 MG PO (21:15)
--- NOTE | 2018-09-16 21:49 | PC.NURSE ---
SHIFT NOTE Received pt at approximately 1600 via bed from PACU. sleepy but wakens to verbal stimuli. generalized weakness but only requires 1PA to transfer to BSC. abdomen soft, bowel sounds present. denies nausea, tolerating clear liquids without issues. c/o RLQ pain, rated 6/10. bed alarm fro safety. call light within reach.
[2018-09-17] MEDS: SODIUM CHLORIDE 0.9% 1,000 ML 125 ML IV ×3 (05:19→21:27)
[2018-09-17 05:25] VITALS: BP 118/65; PULSE 81; RESP 18; TEMP 36.8; O2SAT 95
[2018-09-17 05:58] LABS: Add Manual Diff / Slide Review NO; Basophils Percent Auto 0.2 % (0-2); Hematocrit 33.5 % (36-46); Lymphocytes Percent Auto 14.5 % (25-40); Mean Corpuscular HGB Conc 32.7 % (30-36); Mean Corpuscular Hemoglobin 25.8 PG (26-34); Monocytes Percent Auto 2.2 % (3-14); Neutrophils Absolute Auto 4400 /uL (3000-5900); Neutrophils Percent Auto 83.1 % (50-75); Platelet Count 462 X10^3/uL (150-400); Red Blood Cell Count 4.24 X10^6/uL (4.0-5.2); Red Cell Distribution Width 17.4 % (11.6-14.8); White Blood Cell Count 5.3 X10^3/uL (4.5-11.0)
[2018-09-17 06:09] LABS: Calcium 7.9 mg/dL (8.4-10.2); Carbon Dioxide 29 mmol/L (22-32); Chloride 106 mmol/L (98-107); Estimated Glomerular Filt Rate > 60.0 mL/min (>60); Glucose 123 mg/dL (70-100); HEMOLYSIS < 15 (0-50); Potassium 4.1 mmol/L (3.4-5.1); Sodium 141 mmol/L (137-145)
[2018-09-17 06:27] LABS: Blood Urea Nitrogen < 2 mg/dL (7-17)
[2018-09-17 07:50] VITALS: BP 102/66; PULSE 87; RESP 17; TEMP 36.8; O2SAT 92
[2018-09-17] MEDS: HYDROCORTISONE 100 MG/2 ML VIAL IV ×2 (08:24→16:20)
[2018-09-17] MEDS: sulfaSALAzine 500 MG TABLET 1000 MG PO ×2 (08:24→20:29)
--- NOTE | 2018-09-17 09:26 | PM.PN.1 ---
Subjective Date Patient Seen: 09/17/18 Time Patient Seen: 09:26 Interval history: FOLLOW-UP ON RIGHT LOWER QUADRANT PAIN Patient seen at bedside. No acute overnight events. Patient is starting to feel little better today. Patient underwent colonoscopy yesterday, which was concerning for new diagnosis of inflammatory bowel disease, specifically Crohn's. Biopsies were taken. Patient was started on sulfasalazine therapy and IV steroids. Exam Vital Signs (past 8 hours): - 09/17/18 05:25 Temperature 98.3 F Pulse Rate 81 Respiratory Rate 18 Blood Pressure 118/65 Pulse Oximetry 95 Fraction of Inspired Oxygen 21 Oxygen Delivery Method Room Air Oxygen Flow Rate 0 Narrative Exam Narrative: General: No acute distress, AAO x3 HEENT: PERRLA bilaterally Neck: Supple, no LAD CV: Regular rate and rhythm, no murmurs Respiratory: CTA bilaterally, no wheezing or crackles GI: Tenderness to deep palpation in right lower quadrant. Positive bowel sounds throughout all blair Musculoskeletal: Weakness in lower extremities bilaterally Skin: Slight gluteal decubitus ulcer, bandaged Objective Labs Result Diagrams: 09/17/18 05:10 09/17/18 05:10 Labs: Laboratory Results - last 24 hr 09/17/18 09/17/18 05:10 05:10 WBC 5.3 RBC 4.24 Hgb 11.0 L Hct 33.5 L MCV 79.0 L MCH 25.8 L MCHC 32.7 RDW 17.4 H Plt Count 462 H Neut % (Auto) 83.1 H D Lymph % (Auto) 14.5 L D [place] % (Auto) 2.2 L Eos % (Auto) 0.0 L Baso % (Auto) 0.2 Neut # (Auto) 4400 Sodium 141 Potassium 4.1 Chloride 106 Carbon Dioxide 29 BUN < 2 L Creatinine 0.40 L Estimated GFR > 60.0 BUN/Creatinine Ratio 5.0 L Glucose 123 H Calcium 7.9 L Assessment & Plan Plan: Assessment/Plan Narrative: 1. Acute right lower quadrant pain -Likely due to Crohn's Disease -blood cultures negative -CT of abdomen and pelvis with contrast repeated which showed mildly prominent fluid-filled loops of small bowel which could represent ileus versus partial small bowel obstruction as well as thickening within the ascending and descending colon with minimal surrounding inflammatory change, which could be reflect a low-grade colitis -s/p colonoscopy which revealed skip lesions and ulcerations consistent with Crohn's Dz -patient was started on Sulfasalazine therapy as well as IV steroids. She is finally starting to feel better. Will continue IV steroids while inpatient and discharge on Prednisone 40mg PO daily until patient sees GI specialist -Zofran as needed for nausea -Dilaudid as needed for pain control 2. Obesity -diet counseling 3. Anemia of chronic disease -hemoglobin stable -continue to monitor 4. Thrombocytosis -stable -Continue to monitor 5. PTSD -follow up with primary care outpatient 7. Bilateral lower extremity weakness -continue pregabalin b.i.d.. Follow up with Neurology outpatient Quality VTE Deep Vein Thrombosis/Pulmonary Embolism Present on Admission: No
--- NOTE | 2018-09-17 09:26 | PM.PN.1 ---
Subjective Date Patient Seen: 09/17/18 Time Patient Seen: 09:27 Interval history: Patient with no new complaints. States that her right upper quadrant abdominal pain is subsiding somewhat now that she is receiving mesalamine and steroids. No nausea or vomiting. Passing flatus. No dysuria. Tolerating clear liquids by mouth today. Exam Vital Signs (past 8 hours): - 09/17/18 05:25 Temperature 98.3 F Pulse Rate 81 Respiratory Rate 18 Blood Pressure 118/65 Pulse Oximetry 95 Fraction of Inspired Oxygen 21 Oxygen Delivery Method Room Air Oxygen Flow Rate 0 Narrative Exam Narrative: Patient seen and examined with the attending nurseSarina Patient lying in bed in no acute distress. Alert oriented x3 She has had no fevers or tachycardia since endoscopy yesterday. Blood pressure is normal. Abdomen is soft and nondistended. 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 No guarding or rebound however. Objective Labs Result Diagrams: 09/17/18 05:10 09/17/18 05:10 Labs: Laboratory Results - last 24 hr 09/17/18 09/17/18 05:10 05:10 WBC 5.3 RBC 4.24 Hgb 11.0 L Hct 33.5 L MCV 79.0 L MCH 25.8 L MCHC 32.7 RDW 17.4 H Plt Count 462 H Neut % (Auto) 83.1 H D Lymph % (Auto) 14.5 L D [place] % (Auto) 2.2 L Eos % (Auto) 0.0 L Baso % (Auto) 0.2 Neut # (Auto) 4400 Sodium 141 Potassium 4.1 Chloride 106 Carbon Dioxide 29 BUN < 2 L Creatinine 0.40 L Estimated GFR > 60.0 BUN/Creatinine Ratio 5.0 L Glucose 123 H Calcium 7.9 L Biopsy results are still pending. Assessment & Plan Plan: Assessment/Plan Narrative: 33-year-old female with what appears to be Crohn's colitis. On further history with the patient and her family yesterday following endoscopy she relates a family history in close relatives of at least 2 other cases of Crohn's disease. We will await the biopsies but I agree with treating the patient empirically for inflammatory bowel disease as above. I strongly recommend that she establish care with a vine pruner for ongoing long-term surveillance of her disease as well as potential long-term medical management. Currently she has no indications for surgical intervention. I discussed all this with the patient in detail. I had discussed this with her family yesterday after the procedure as well. Case discussed with the Internal Medicine Service. All questions answered to the patient's satisfaction, and she voiced understanding. She was agreeable to the plan. At this time surgical services will defer care to the internal medicine service, but we are happy to see the patient again for any new or recurrent issues. Quality VTE Deep Vein Thrombosis/Pulmonary Embolism Present on Admission: No
--- NOTE | 2018-09-17 09:30 | P.PN_ITS ---
Subjective Date Patient Seen: 09/17/18 Time Patient Seen: 09:27 Interval history: Patient with no new complaints. States that her right upper quadrant abdominal pain is subsiding somewhat now that she is receiving mesalamine and steroids. No nausea or vomiting. Passing flatus. No dysuria. Tolerating clear liquids by mouth today. Exam Vital Signs (past 8 hours): - 09/17/18 05:25 Temperature 98.3 F Pulse Rate 81 Respiratory Rate 18 Blood Pressure 118/65 Pulse Oximetry 95 Fraction of Inspired Oxygen 21 Oxygen Delivery Method Room Air Oxygen Flow Rate 0 Narrative Exam Narrative: Patient seen and examined with the attending nurseSarina Patient lying in bed in no acute distress. Alert oriented x3 She has had no fevers or tachycardia since endoscopy yesterday. Blood pressure is normal. Abdomen is soft and nondistended. 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 No guarding or rebound however. Objective Labs Result Diagrams: 09/17/18 05:10 09/17/18 05:10 Labs: Laboratory Results - last 24 hr 09/17/18 09/17/18 05:10 05:10 WBC 5.3 RBC 4.24 Hgb 11.0 L Hct 33.5 L MCV 79.0 L MCH 25.8 L MCHC 32.7 RDW 17.4 H Plt Count 462 H Neut % (Auto) 83.1 H D Lymph % (Auto) 14.5 L D [place] % (Auto) 2.2 L Eos % (Auto) 0.0 L Baso % (Auto) 0.2 Neut # (Auto) 4400 Sodium 141 Potassium 4.1 Chloride 106 Carbon Dioxide 29 BUN < 2 L Creatinine 0.40 L Estimated GFR > 60.0 BUN/Creatinine Ratio 5.0 L Glucose 123 H Calcium 7.9 L Biopsy results are still pending. Assessment & Plan Plan: Assessment/Plan Narrative: 33-year-old female with what appears to be Crohn's colitis. On further history with the patient and her family yesterday following endoscopy she relates a family history in close relatives of at least 2 other cases of Crohn's disease. We will await the biopsies but I agree with treating the patient empirically for inflammatory bowel disease as above. I strongly recommend that she establish care with a environmental test technician for ongoing long-term surveillance of her disease as well as potential long-term medical management. Currently she has no indications for surgical intervention. I discussed all this with the patient in detail. I had discussed this with her family yesterday after the procedure as well. Case discussed with the Internal Medicine Service. All questions answered to the patient's satisfaction, and she voiced understanding. She was agreeable to the plan. At this time surgical services will defer care to the internal medicine service, but we are happy to see the patient again for any new or recurrent issues. Quality VTE Deep Vein Thrombosis/Pulmonary Embolism Present on Admission: No
[2018-09-17] MEDS: PREGABALIN 75 MG CAPSULE 225 MG PO ×2 (10:03→20:29)
[2018-09-17 12:45] VITALS: BP 111/57; PULSE 106; RESP 19; TEMP 36.7; O2SAT 95
[2018-09-17] MEDS: HYDROMORPHONE 2 MG INJ IV ×2 (14:07→18:56)
--- NOTE | 2018-09-17 14:55 | CM.DPC ---
Addendum entered by Courtney Arce R.N. 09/17/18 15:58: Spoke to [facility], may not be able to get out to home until , went ahead and faxed over clinicals. Verified that they do accept insurance. Attempted Signature, but unable to get through. Original Note: DCP Cont: Discussed patient at rounds this morning. Patient is noted to have diagnosis of Chrohn's disease, which was just determined. Patient will be treated with IV steroids starting today. Hospitalist will see how she is doing tomorrow after second day of steroids. Went ahead and called and left a message with [facility] to see if they take patient's insurance, [employer]/Medicaid. Patient may be in need of nursing as well as occupational, physical, FRUIT AND VEGETABLE CLASSER, as well as bath aid if needed. P: DCP to continue to follow closely. Will follow up with home health, to note which agency patient will be able to use. Will also contact case management specialist at [facility] Lea COBIAN, with any concerns at discharge. Courtney Arce RN/Community Action Worker
[2018-09-17 17:00] VITALS: BP 99/73; PULSE 118; RESP 17; TEMP 36.8; O2SAT 96
[2018-09-17 19:46] VITALS: PULSE 86; RESP 14; O2SAT 99
[2018-09-17] MEDS: ALBUTEROL/IPRATROPIUM 3 ML AMPUL INH (19:46)
[2018-09-17] MEDS: NYSTATIN CREAM 30 GM 1 APPLIC TOP (20:29)
[2018-09-17 21:00] VITALS: BP 93/52; PULSE 117; RESP 16; TEMP 36.5; O2SAT 95
[2018-09-18] VITALS (7 sets, daily range): BP systolic 92–119; BP diastolic 52–75; PULSE 79–100; RESP 14–22; TEMP 36.3–36.8; O2SAT 93–99
[2018-09-18] MEDS: HYDROMORPHONE 2 MG INJ IV ×3 (00:29→14:05)
[2018-09-18] MEDS: HYDROCORTISONE 100 MG/2 ML VIAL IV ×4 (00:29→23:57)
--- NOTE | 2018-09-18 03:23 | PC.NURSE ---
Shift: Pt put working second hand light and this RN responded and found pt in bed crying stating I really have to pee and my tummy hurts. Asked pt to go into further detail but pt unable to explain beyond comment that her tummy hurt badly. Ambulated pt to toilet where she became further distressed that she was unable to pee and that she had new onset abdominal pain where pt indicated was in lower pelvic region. During this hospitalization pt had consistently indicated pain in the right abdomen. This RN used [employer] to call for SALES AND MARKETING ANALYST assistance and started pericare but felt it would benefit the patient to be supine in bed and medicated for pain rated at a 7/10 on the pain scale before proceeding. Pt had voided 100ml into toilet hat. SALES AND MARKETING ANALYST bladder scanned the pt as she continued to state the urgent need to urinate but felt unable to and found greatest reading of 245ml of retained urine. Pt was medicated per MAR for pain and pericare was performed. Hospitalist notified of new onset pain, tachycardia and hypotension found on assessment. Orders were written for telemetry and to monitor voiding for retention and to straight cath if no voiding had occurred in 4 hours and there was greater than 400ml of urine per bladder scan. Pt was able to void again and had greater than 300ml out. Pt reported upon reassessment that pain had begun to subsided to 5/10 and was later found to be sleeping.
[2018-09-18] MEDS: SODIUM CHLORIDE 0.9% 1,000 ML 125 ML IV (05:25)
[2018-09-18 06:15] LABS: Add Manual Diff / Slide Review NO; Basophils Percent Auto 0.1 % (0-2); Eosinophils Percent Auto 0.1 % (2-4); Hematocrit 29.5 % (36-46); Hemoglobin 9.8 g/dL (12.0-16.0); Lymphocytes Percent Auto 12.2 % (25-40); Mean Corpuscular HGB Conc 33.2 % (30-36); Mean Corpuscular Hemoglobin 26.5 PG (26-34); Mean Corpuscular Volume 79.6 fL (80-100); Monocytes Percent Auto 3.9 % (3-14); Neutrophils Absolute Auto 5900 /uL (3000-5900); Neutrophils Percent Auto 83.7 % (50-75); Platelet Count 437 X10^3/uL (150-400); Red Blood Cell Count 3.71 X10^6/uL (4.0-5.2); Red Cell Distribution Width 17.6 % (11.6-14.8); White Blood Cell Count 7.1 X10^3/uL (4.5-11.0)
[2018-09-18 06:45] LABS: Carbon Dioxide 25 mmol/L (22-32); Chloride 108 mmol/L (98-107); Estimated Glomerular Filt Rate > 60.0 mL/min (>60); Glucose 146 mg/dL (70-100); HEMOLYSIS < 15 (0-50); Potassium 3.7 mmol/L (3.4-5.1); Sodium 141 mmol/L (137-145)
[2018-09-18 06:53] LABS: Blood Urea Nitrogen < 2 mg/dL (7-17)
[2018-09-18] MEDS: PREGABALIN 75 MG CAPSULE 225 MG PO ×2 (09:52→20:22)
[2018-09-18] MEDS: NYSTATIN CREAM 30 GM 1 APPLIC TOP ×2 (09:52→20:22)
[2018-09-18] MEDS: sulfaSALAzine 500 MG TABLET 1000 MG PO ×2 (09:53→20:22)
--- NOTE | 2018-09-18 10:08 | CM.DPC ---
Addendum entered by Courtney Arce R.N. 09/18/18 10:56: Did meet up with patient. Asked her if her grandmother was her POA. Patient stated, She's like my mom. Asked her about someone picking her up tomorrow. Stated, she didn't know if her grandmother could, because she doesn't have money for gas. She stated she would check in with her. Asked her about her child's dad, and she stated, He's pretty much out of the picture. Her sister Kate lives in [place] and does not drive. Stated that she has a friend named Sangita that she could ask. Other option is Medicaid transport. Added bath aide on face sheet for home health, due to hygiene issues. Original Note: DCP Cont: Discussed patient during team rounds. Dr. Rob was not concerned about wound in gluteal area, stated was superficial. Patient should be here another day on her steroid medication. Had hospitalist go ahead and sign face to face. Discussed case with [facility] as well. Also, received verbal permission for patient to have physical and occupational therapy. Occupational therapist will be here tomorroe. P: DCP to continue to follow. Could be discharged tomorrow. Have already faxed clinical information to [facility]. Courtney Arce RN/Piler
--- NOTE | 2018-09-18 10:30 | CM.SWNOTE ---
Hasher Operator Consult Request: Reviewed this w/ RN DC Manager Sql Sonali; she has met w/pt and does not see a need for FRONT OFFICE MANAGER to consult at this time. RN will update FRONT OFFICE MANAGER team if needs change. CELINE
--- NOTE | 2018-09-18 11:11 | P.PN_ITS ---
Subjective Date Patient Seen: 09/18/18 Time Patient Seen: 11:07 Interval history: Follow-up on inflammatory bowel disease Patient seen at bedside. States that overnight her pain transition to the left lower quadrant, but was mild and similar characteristic as the previous right lower quadrant pain. Patient had 1 bout of nonbloody diarrhea this morning. No fevers or leukocytosis. Patient feels like the steroids are helping her. Exam Vital Signs (past 8 hours): - 09/18/18 04:00 Temperature 97.4 F L Pulse Rate 100 H Respiratory Rate 14 Blood Pressure 98/56 L Pulse Oximetry 95 Fraction of Inspired Oxygen 21 Oxygen Delivery Method Room Air Oxygen Flow Rate 0 Narrative Exam Narrative: General: No acute distress, AAO x3 HEENT: PERRLA bilaterally Neck: Supple, no LAD CV: Regular rate and rhythm, no murmurs Respiratory: CTA bilaterally, no wheezing or crackles GI: Slight Tenderness to deep palpation in right lower quadrant, improving. Positive bowel sounds throughout all blair Musculoskeletal: Weakness in lower extremities bilaterally Skin: Slight gluteal decubitus ulcer, bandaged Objective Labs Result Diagrams: 09/18/18 05:25 09/18/18 05:25 Labs: Laboratory Results - last 24 hr 09/18/18 09/18/18 05:25 05:25 WBC 7.1 RBC 3.71 L Hgb 9.8 L Hct 29.5 L MCV 79.6 L MCH 26.5 MCHC 33.2 RDW 17.6 H Plt Count 437 H Neut % (Auto) 83.7 H Lymph % (Auto) 12.2 L [place] % (Auto) 3.9 Eos % (Auto) 0.1 L Baso % (Auto) 0.1 Neut # (Auto) 5900 Sodium 141 Potassium 3.7 Chloride 108 H Carbon Dioxide 25 BUN < 2 L Creatinine 0.40 L Estimated GFR > 60.0 BUN/Creatinine Ratio 5.0 L Glucose 146 H Calcium 8.0 L Assessment & Plan Plan: Assessment/Plan Narrative: 1. New diagnosis of Crohn's disease -blood cultures negative, stool cultures negative -CT of abdomen and pelvis with contrast repeated which showed mildly prominent fluid-filled loops of small bowel which could represent ileus versus partial small bowel obstruction as well as thickening within the ascending and descending colon with minimal surrounding inflammatory change, which could be reflect a low-grade colitis -s/p colonoscopy which revealed skip lesions and ulcerations consistent with Crohn's Dz -patient was started on Sulfasalazine therapy as well as IV steroids. She is finally starting to feel better. Will continue IV steroids while inpatient and discharge on Prednisone 40mg PO daily until patient sees GI specialist. Patient would benefit from 1 more day of IV steroids -Zofran as needed for nausea -Dilaudid as needed for pain control 2. Obesity -diet counseling 3. Anemia of chronic disease -hemoglobin stable -continue to monitor 4. Thrombocytosis -stable -Continue to monitor 5. PTSD -follow up with primary care outpatient 7. Bilateral lower extremity weakness -continue pregabalin b.i.d. -Follow up with Neurology outpatient -PT/OT on board, will follow up Dispo: Will give 1 more day of IV steroids. Possible discharge tomorrow on p.o. prednisone. Quality VTE Deep Vein Thrombosis/Pulmonary Embolism Present on Admission: No
--- NOTE | 2018-09-18 11:22 | PC.NURSE ---
Addendum entered by Kenyetta Barragan R.N. 09/18/18 15:03: 1400: Pt complaining of abdominal pain. Used walker to bathroom. Stool sample sent to lab. Pt reported 6/10 pain. Medication given. Would like to participate with PT to work on stairs, however, would like pain to be under control first. Original Note: Day Shift 1000: Pt assessed. Resting in bed. Reports 6/10 pain in RLQ. IV pain meds given. Education done on hygiene. Will get out of bed and clean up after pain medication kicks in. 1030: SYSTEM VALIDATION ENGINEER transferred pt to bathroom. Pt participated in shower. Mervat care done by RN. Nystatin applied under breasts and coccyx. New pressure dressing applied to gluteal fold.
--- NOTE | 2018-09-18 11:35 | PT.IIE ---
Current Diagnoses Anemia, unspecified (09/09/18) Epilepsy, unspecified, not intractable, without status epilepticus (09/09/18) Diverticulitis of intestine, part unspecified, without perforation or abscess without bleeding (09/09/18) Tubulo-interstitial nephritis, not specified as acute or chronic (09/09/18) Surgery Performed Operation Date: 09/16/18 13:55 Actual Procedures p Colonoscopy WITH BIOPSIES - Neri Perez MD s Esophagogastroduodenoscopy WITH BIOPSIES(Not Applicable) - Neri Perez MD Surgical History (Last Updated 09/11/18 @ 14:03 by Rock Chavarria MD) Hx laparoscopic cholecystectomy (Resolved) Hx of tonsillectomy (Resolved) Medical History (Last Updated 09/11/18 @ 14:03 by Rock Chavarria MD) Heart palpitations (Acute) Idiopathic intracranial hypertension (Acute) Migraine (Acute) Asthma (Chronic) Chronic knee pain (Chronic) Chronic shoulder pain (Chronic) Epilepsia (Chronic) IBS (irritable bowel syndrome) (Chronic) Incisional hernia (Chronic) PTSD (post-traumatic stress disorder) (Chronic) Physical Therapy Inpatient Evaluation/Re-Eval M1 PT/OT-IP Prior Functional Status Start: 09/18/18 11:40 Freq: NEEDED Status: Active Protocol: Document 09/18/18 11:35 [facility] (Rec: 09/18/18 11:57 [facility] [id number]) Medical Review Prior Functional Status Medical History Reviewed Yes Mobility and Gait 4WW for short distance ambulation, SPC indoors ( although pt reports her cane is now in storage, she cannot find it). She uses a mobility scooter when shopping. Activities of Daily Living and IADL's assistance with some ADLs pt reports, but does not admit any specific. Prior Functional Level (Other details) pt states she has a toilet riser but unsure of where it is because someone moved it when cleaning the apartment. Cannot use 4WW in home, has a SPC in storage but not sure where it is. Pt presented with R lower quadrant pain, dizziness and nausea in the ER. Colonoscopy found IBS and Chron's disease (new diagnosis). Social History Household Members family friend(s) Living Arrangements Apartment/Condo Number of Floors (Floors) One Floor Number of Stairs To Enter/Railing? 15 steps R ascending rail, landing, then 6+ steps R ascending rail to get up to apartment. Home Environment High Toilet Home Equipment Front Wheel Walker Additional Social History Comment Grandmother has a broken arm but not casted, states she is not supposed to use it. Grandmother is pt's primary caregiver. Meals on Wheels program for food. M2 PT-IP Current Condition Start: 09/18/18 11:40 Freq: NEEDED Status: Active Protocol: Document 09/18/18 11:35 [facility] (Rec: 09/18/18 11:57 [facility] [id number]) Physical Therapy Current Condition Current Condition Evaluation Date 09/18/18 Treatment Diagnosis LLQ pain, dizziness, impaired activity tolerance and gait M3 PT-IP Subjective Start: 09/18/18 11:40 Freq: NEEDED Status: Active Protocol: Document 09/18/18 11:35 [facility] (Rec: 09/18/18 11:57 [facility] [id number]) Subjective Physical Therapy Visit Type Type Initial Evaluation Visit Start Time 11:18 Visit Stop Time 11:35 Total Visit Minutes 17 Number of FINANCIAL SERVICE REPRESENTATIVE Visits 0 Physical Therapy Visit Comments Patient Comments pt states knees feel better with treatment of the Chron's Patient Goals to go home tomorrow. M4 PT-IP Mobility and Gait Start: 09/18/18 11:40 Freq: NEEDED Status: Active Protocol: Document 09/18/18 11:35 [facility] (Rec: 09/18/18 11:57 [facility] [id number]) PT-Bed Mobility Assessment Supine to Sit Supine to Sit Independent Sit to Supine Sit to Supine Independent Scooting Scooting to Edge of Bed Independent PT-Transfer Assessment Sit to and From Stand Sit to and from Stand Standby Assistance Equipment Transfer Assistive Device Gait Belt Front Wheeled Walker Transfers Transfer Destination Bed Transfer Technique Stand Step Pivot Transfer Ability Level of Assist Standby Assistance Comments Mobility Comments slow pacing of mobility Gait Assessment Gait Gait Assistance Required: Standby Assistance Distance (Feet) 140 Assistive Devices Assistive Device Gait Belt Front Wheeled Walker Gait Deviations General Gait Pattern Antalgic Decreased Stride Length Decreased Feet Clearance Factors Limiting Gait Function Factors Limiting Gait Function Decreased Activity Tolerance Decreased Strength Limited Range of Motion Pain Comments Gait Comments slow gait speed, denied any episodes of dizziness. PT-Balance Assessment Sitting Balance and Reactions Static Sitting Balance Ability Good Dynamic Sitting Balance Ability Good Standing Balance and Reactions Static Standing Balance Ability Fair Dynamic Standing Balance Ability Fair Device Used FWW M5 PT-IP Objective Assessments Start: 09/18/18 11:40 Freq: NEEDED Status: Active Protocol: Document 09/18/18 11:35 [facility] (Rec: 09/18/18 11:57 [facility] [id number]) Orientation Orientation/Cognition Level of Alertness Alert Orientation Name Age Birthday Month Date Year Day of Week Place Situation Gross Range of Motion Lower Extremity ROM Assessment Bilaterally Impaired Impairments B knee flexion to 120 degrees (stiffness) Strength Lower Extremity Strength Assessment Bilaterally Impaired Hip flexion 4/5 B Knee flexion 4/5 B, extension 4/5 B Coordination Assessment Gross Coordination Gross Coordination WNL M7 PT-IP Assessment and Plan Start: 09/18/18 11:40 Freq: NEEDED Status: Active Protocol: Document 09/18/18 11:35 [facility] (Rec: 09/18/18 11:57 [facility] [id number]) PT Summary Assessment and Plan Potential Rehabilitation Potential Good Status of Condition at Evaluation Evolving Summary Impairments Pain ROM Strength Gait Activity Tolerance Assessment Summary Pt overall is moving slowly due to stiffness and weakness of the BLEs. Pt reports she is feeling better, less pain in the knees, but still requires prolonged amount of time to perform tasks. Pt's primary caregiver has a broken arm ( her grandmother) but apparently has another person, Sangita, who can assist some post-discharge. Barriers to d/ c home include: 1.5 flight of steps to enter/exit home, unable to fit 4WW in apartment , unable to locate her toilet seat riser, and overall limitations with CG services given her grandmother's broken arm. Recommend OT evaluation to assist with d/c planning needs, as well as PT and OT . Pt will need to perform stairs prior to d/c. Goals Gait Goal Standby Assistance Cane Gait Distance 150 Other Goals up/down 21 steps with R ascending rail and CGA. Days to Meet Goals 3 Frequency of Treatment Frequency Of Treatment Twice a Day Treatment Plan Physical Therapy Treatment Plan Gait Training Therapeutic Exercise Discharge Planning Other Recommendations and Next Treatment stair training, initiate gait Focus with SPC Recommendations To Nursing Amount of Assist Needed 1 Person Assist Discharge Recommendations PT Discharge Recommendations Home with Assistance Home Health Other Discharge Recommendations obtain, find her toilet riser. Equipment Needed for Home Before SPC if pt unable to locate Discharge hers
--- NOTE | 2018-09-18 14:45 | PT.IPTN ---
Current Diagnoses Anemia, unspecified (09/09/18) Epilepsy, unspecified, not intractable, without status epilepticus (09/09/18) Diverticulitis of intestine, part unspecified, without perforation or abscess without bleeding (09/09/18) Tubulo-interstitial nephritis, not specified as acute or chronic (09/09/18) Surgery Performed Operation Date: 09/16/18 13:55 Actual Procedures p Colonoscopy WITH BIOPSIES - Neri Perez MD s Esophagogastroduodenoscopy WITH BIOPSIES(Not Applicable) - Neri Perez MD Physical Therapy Treatment Note M2 PT-IP Current Condition Start: 09/18/18 11:40 Freq: NEEDED Status: Active Protocol: Document 09/18/18 11:35 RCC (Rec: 09/18/18 11:57 RCC [id number]) Physical Therapy Current Condition Current Condition Evaluation Date 09/18/18 Treatment Diagnosis LLQ pain, dizziness, impaired activity tolerance and gait M3 PT-IP Subjective Start: 09/18/18 11:40 Freq: NEEDED Status: Active Protocol: Document 09/18/18 14:44 CLB (Rec: 09/18/18 14:45 CLB [id number]) Subjective Physical Therapy Visit Type Type Patient Refusal Notes Pt stated that her hips and stomach hurt and respectfully refused PT. Will check back with pt in the morning.
--- NOTE | 2018-09-18 15:57 | PT.IPTN ---
Current Diagnoses Anemia, unspecified (09/09/18) Epilepsy, unspecified, not intractable, without status epilepticus (09/09/18) Diverticulitis of intestine, part unspecified, without perforation or abscess without bleeding (09/09/18) Tubulo-interstitial nephritis, not specified as acute or chronic (09/09/18) Surgery Performed Operation Date: 09/16/18 13:55 Actual Procedures p Colonoscopy WITH BIOPSIES - Neri Perez MD s Esophagogastroduodenoscopy WITH BIOPSIES(Not Applicable) - Neri Perez MD Physical Therapy Treatment Note M2 PT-IP Current Condition Start: 09/18/18 11:40 Freq: NEEDED Status: Active Protocol: Document 09/18/18 11:35 RCC (Rec: 09/18/18 11:57 RCC [id number]) Physical Therapy Current Condition Current Condition Evaluation Date 09/18/18 Treatment Diagnosis LLQ pain, dizziness, impaired activity tolerance and gait M3 PT-IP Subjective Start: 09/18/18 11:40 Freq: NEEDED Status: Active Protocol: Document 09/18/18 15:10 CLB (Rec: 09/18/18 15:56 CLB [id number]) Subjective Physical Therapy Visit Type Type Treatment Note Visit Start Time 15:10 Visit Stop Time 15:35 Total Visit Minutes 25 Number of TECHNOLOGY METHODOLOGY CONSULTANT Visits 1 Physical Therapy Visit Comments Patient Comments Left knee is hurting. Therapy Pain Assessment Pain When Pain Assessed At Rest M4 PT-IP Mobility and Gait Start: 09/18/18 11:40 Freq: NEEDED Status: Active Protocol: Document 09/18/18 15:10 CLB (Rec: 09/18/18 15:56 CLB [id number]) PT-Bed Mobility Assessment Supine to Sit Supine to Sit Independent Sit to Supine Sit to Supine Independent Scooting Scooting to Edge of Bed Independent PT-Transfer Assessment Sit to and From Stand Sit to and from Stand Standby Assistance Equipment Transfer Assistive Device Gait Belt Straight Cane Front Wheeled Walker Transfers Transfer Destination Bed Wheelchair Transfer Technique Stand Step Pivot Transfer Ability Level of Assist Standby Assistance Comments Mobility Comments slow pacing of mobility Gait Assessment Gait Gait Assistance Required: Standby Assistance Distance (Feet) 140 Assistive Devices Assistive Device Gait Belt Straight Cane Front Wheeled Walker Gait Deviations General Gait Pattern Antalgic Decreased Stride Length Decreased Feet Clearance Factors Limiting Gait Function Factors Limiting Gait Function Decreased Activity Tolerance Decreased Strength Limited Range of Motion Pain Comments Gait Comments Pt ambulates slowly while trialing cane, pt needed cues for sequencing. Stair Climbing Assessment Evaluation Level of Assist On Stairs Contact Guard Assistance Devices Stair Climbing Assistive Devices Straight Cane Right Railing Technique/Endurance Stair Climbing Direction Ascend and Descend Stair Climbing Technique Step to Step Number of Steps Climbed 3 Query Text: Stair Climbing Set # Repetitions (reps) 2 Comments Stair Climbing Comments Pt fatigued after two sets of three steps. M5 PT-IP Objective Assessments Start: 09/18/18 11:40 Freq: NEEDED Status: Active Protocol: Document 09/18/18 11:35 RCC (Rec: 09/18/18 11:57 RCC [id number]) Orientation Orientation/Cognition Level of Alertness Alert Orientation Name Age Birthday Month Date Year Day of Week Place Situation Gross Range of Motion Lower Extremity ROM Assessment Bilaterally Impaired Impairments B knee flexion to 120 degrees (stiffness) Strength Lower Extremity Strength Assessment Bilaterally Impaired Hip flexion 4/5 B Knee flexion 4/5 B, extension 4/5 B Coordination Assessment Gross Coordination Gross Coordination WNL M6 PT-IP Treatment Start: 09/18/18 11:40 Freq: NEEDED Status: Active Protocol: Document 09/18/18 15:10 CLB (Rec: 09/18/18 15:56 CLB [id number]) Physical Therapy Treatment Exercises Exercises Gluteal Sets Quad Sets M7 PT-IP Assessment and Plan Start: 09/18/18 11:40 Freq: NEEDED Status: Active Protocol: Document 09/18/18 15:10 CLB (Rec: 09/18/18 15:56 CLB [id number]) PT Summary Assessment and Plan Summary Impairments Pain ROM Strength Gait Activity Tolerance Assessment Summary Pt continues to move slowly due to pain and stiffness of BLE LLE>RLE. Pt climbed stairs w/SPC fatiguing after two sets of three steps. Pt is IND with all bed mobility and needs cues for sequencing with SPC. Pt to use FWW while up with nursing at this time. Continue to practise with SPC during PT sessions. Goals Gait Goal Standby Assistance Cane Gait Distance 150 Other Goals up/down 21 steps with R ascending rail and CGA. Days to Meet Goals 3 Frequency of Treatment Frequency Of Treatment Twice a Day Treatment Plan Physical Therapy Treatment Plan Gait Training Therapeutic Exercise Discharge Planning Other Recommendations and Next Treatment stair training, continue Focus training w/SPC during ambulation. Recommendations To Nursing Amount of Assist Needed 1 Person Assist Discharge Recommendations PT Discharge Recommendations Home with Assistance Home Health Other Discharge Recommendations obtain, find her toilet riser. Equipment Needed for Home Before SPC if pt unable to locate Discharge hers
[2018-09-18 16:01] LABS: Adenovirus F 40/41 Not Detected (Not Detect); Astrovirus Not Detected (Not Detect); Campylobacter Not Detected (Not Detect); Clostridium difficile toxin AB Not Detected (Not Detect); Cryptosporidium Not Detected (Not Detect); Cyclospora cayetanensis Not Detected (Not Detect); Entamoeba histolytica Not Detected (Not Detect); Enteroaggregative E.coli Not Detected (Not Detect); Enteropathogenic E.coli Not Detected (Not Detect); Enterotoxigenic E.coli It/st Not Detected (Not Detect); Giardia lamblia Not Detected (Not Detect); Norovirus GI/GII Not Detected (Not Detect); Plesiomonsa shigelloides Not Detected (Not Detect); Rotavirus A Not Detected (Not Detect); Salmonella Not Detected (Not Detect); Sapovirus Not Detected (Not Detect); Shiga-like toxin-prod E.coli Not Detected (Not Detect); Shigella/Enteroinvasive E.coli Not Detected (Not Detect); Vibrio Not Detected (Not Detect); Vibrio cholerae Not Detected (Not Detect); Yersinia enterocolitica Not Detected (Not Detect)
--- NOTE | 2018-09-18 19:13 | PC.NURSE ---
Addendum entered by Renae Todd R.N. 09/18/18 19:15: discussed discharge and information about discharge re patient with grandmother with pt's approval. Original Note: Addendum entered by Renae Todd R.N. 09/18/18 19:15: spoke to grandmother- pt lives with, and grandmother is concerned about diet and medications upon discharge. Original Note: 1500- assumed care of pt from outgoing shift. Pt awake. working with PT. fluids on hold for this. Pt cooperative with nursing staff. denies pain at this time. states it is tolerable and only minimal in her stomach. Pt cooperative with nursing staff. uses call light. waits for assistance. sat in chair for dinner. questions answered. will continue to monitor pt for safety.
[2018-09-18] MEDS: SODIUM CHLORIDE 0.9% 1,000 ML 100 ML IV (20:29)
[2018-09-18] MEDS: SODIUM CHLORIDE 0.9% FLUSH 10 ML IV (23:58)
[2018-09-19] MEDS: HYDROCODONE/ACET 5/325 TABLET 1 TAB PO ×2 (00:02→08:20)
--- NOTE | 2018-09-19 00:30 | PC.NURSE ---
Addendum entered by Najma Aaron R.N. 09/19/18 05:56: Slept most of shift. Denies any pain this morning. Original Note: Patient is alert and oriented. Breath sounds CTA with RA sat of 95%. HRR with low BP of 98/55 but is asymptomatic and has trended lower on previous readings. Telemetry reading was SR w/rare PVC's. Denies nausea. BT hypoactive and abdomen is tender in right quads. Had soft stool which was watery at the end. Medicated with Vicodin for complaint of 5/10 RLQ pain. Independent with bed mobility and is up to bathroom with walker and SBA. Allevyn dressing to sacrum is CDI. Perineum less red/excoriated tonight; barrier cream applied. Fall risk score is high and bed alarm is activated.
[2018-09-19 05:49] LABS: BUN Creatinine Ratio 7.5 (6-22); Blood Urea Nitrogen 3 mg/dL (7-17); Calcium 7.9 mg/dL (8.4-10.2); Carbon Dioxide 25 mmol/L (22-32); Chloride 109 mmol/L (98-107); Estimated Glomerular Filt Rate > 60.0 mL/min (>60); Glucose 127 mg/dL (70-100); HEMOLYSIS < 15 (0-50); Potassium 3.1 mmol/L (3.4-5.1); Sodium 142 mmol/L (137-145)
[2018-09-19] MEDS: SODIUM CHLORIDE 0.9% 1,000 ML 100 ML IV (05:54)
[2018-09-19 05:55] VITALS: BP 97/60; PULSE 74; RESP 14; TEMP 36.4; O2SAT 94
[2018-09-19 06:05] LABS: Add Manual Diff / Slide Review NO; Eosinophils Percent Auto 0.1 % (2-4); Hematocrit 31.8 % (36-46); Hemoglobin 9.9 g/dL (12.0-16.0); Lymphocytes Percent Auto 15.9 % (25-40); Mean Corpuscular HGB Conc 31.1 % (30-36); Mean Corpuscular Hemoglobin 25.6 PG (26-34); Mean Corpuscular Volume 82.3 fL (80-100); Monocytes Percent Auto 6.4 % (3-14); Neutrophils Absolute Auto 4500 /uL (3000-5900); Neutrophils Percent Auto 77.6 % (50-75); Platelet Count 352 X10^3/uL (150-400); Red Blood Cell Count 3.86 X10^6/uL (4.0-5.2); Red Cell Distribution Width 18.4 % (11.6-14.8); White Blood Cell Count 5.8 X10^3/uL (4.5-11.0)
[2018-09-19 08:16] VITALS: BP 105/71; PULSE 76; RESP 12; O2SAT 94
[2018-09-19] MEDS: HYDROCORTISONE 100 MG/2 ML VIAL IV (08:20)
[2018-09-19] MEDS: sulfaSALAzine 500 MG TABLET 1000 MG PO (08:20)
[2018-09-19] MEDS: PREGABALIN 75 MG CAPSULE 225 MG PO (08:20)
[2018-09-19 08:35] VITALS: TEMP 36.7
[2018-09-19] MEDS: ONDANSETRON 4 MG/2 ML INJ IV (09:19)
--- NOTE | 2018-09-19 09:50 | PT.IPTN ---
Current Diagnoses Anemia, unspecified (09/09/18) Epilepsy, unspecified, not intractable, without status epilepticus (09/09/18) Diverticulitis of intestine, part unspecified, without perforation or abscess without bleeding (09/09/18) Tubulo-interstitial nephritis, not specified as acute or chronic (09/09/18) Surgery Performed Operation Date: 09/16/18 13:55 Actual Procedures p Colonoscopy WITH BIOPSIES - Neri Perez MD s Esophagogastroduodenoscopy WITH BIOPSIES(Not Applicable) - Neri Perez MD Physical Therapy Treatment Note M2 PT-IP Current Condition Start: 09/18/18 11:40 Freq: NEEDED Status: Active Protocol: Document 09/18/18 11:35 RCC (Rec: 09/18/18 11:57 RCC [id number]) Physical Therapy Current Condition Current Condition Evaluation Date 09/18/18 Treatment Diagnosis LLQ pain, dizziness, impaired activity tolerance and gait M3 PT-IP Subjective Start: 09/18/18 11:40 Freq: NEEDED Status: Active Protocol: Document 09/19/18 08:55 CLB (Rec: 09/19/18 09:50 CLB [id number]) Subjective Physical Therapy Visit Type Type Treatment Note Visit Start Time 08:55 Visit Stop Time 09:10 Total Visit Minutes 15 Number of JUNIOR PROGRAMMER ANALYST Visits 2 Physical Therapy Visit Comments Patient Comments Pt stated I have pain in my tummy. Therapy Pain Assessment Pain When Pain Assessed At Rest Location Right Lower Abdomen Pain Behaviors Facial Grimacing Holding Area Moaning Pain Management Techniques Apply Heat Modification of Treatment Re-positioning Timing of Activity with Medications M4 PT-IP Mobility and Gait Start: 09/18/18 11:40 Freq: NEEDED Status: Active Protocol: Document 09/19/18 08:55 CLB (Rec: 09/19/18 09:50 CLB [id number]) PT-Bed Mobility Assessment Sit to Supine Sit to Supine Independent Scooting Scooting Up and Down in Bed Independent PT-Transfer Assessment Sit to and From Stand Sit to and from Stand Standby Assistance Equipment Transfer Assistive Device Gait Belt Front Wheeled Walker Transfers Transfer Destination Bed Toilet Transfer Technique Stand Step Pivot Transfer Ability Level of Assist Standby Assistance Comments Mobility Comments slow pacing of mobility. Pt able to perform own pericare and doff/rosa breif. Gait Assessment Gait Gait Assistance Required: Standby Assistance Distance (Feet) 140 Assistive Devices Assistive Device Gait Belt Front Wheeled Walker Gait Deviations General Gait Pattern Antalgic Decreased Stride Length Decreased Feet Clearance Factors Limiting Gait Function Factors Limiting Gait Function Decreased Activity Tolerance Decreased Strength Limited Range of Motion Pain Comments Gait Comments Pt with increased ROM of LLE during gait. M5 PT-IP Objective Assessments Start: 09/18/18 11:40 Freq: NEEDED Status: Active Protocol: Document 09/18/18 11:35 RCC (Rec: 09/18/18 11:57 RCC [id number]) Orientation Orientation/Cognition Level of Alertness Alert Orientation Name Age Birthday Month Date Year Day of Week Place Situation Gross Range of Motion Lower Extremity ROM Assessment Bilaterally Impaired Impairments B knee flexion to 120 degrees (stiffness) Strength Lower Extremity Strength Assessment Bilaterally Impaired Hip flexion 4/5 B Knee flexion 4/5 B, extension 4/5 B Coordination Assessment Gross Coordination Gross Coordination WNL M6 PT-IP Treatment Start: 09/18/18 11:40 Freq: NEEDED Status: Active Protocol: Document 09/18/18 15:10 CLB (Rec: 09/18/18 15:56 CLB [id number]) Physical Therapy Treatment Exercises Exercises Gluteal Sets Quad Sets M7 PT-IP Assessment and Plan Start: 09/18/18 11:40 Freq: NEEDED Status: Active Protocol: Document 09/19/18 08:55 CLB (Rec: 09/19/18 09:50 CLB [id number]) PT Summary Assessment and Plan Summary Impairments Pain ROM Strength Gait Activity Tolerance Assessment Summary Pt on toilet upon arrival needing assist with IV pole and reaching needed items for pericare. Pt then ambulated in [place] with greater ROM of left knee with less pain in knee but c/o abdominal pain. Pt was left in bed with warm blanket on abdomen. Goals Gait Goal Standby Assistance Cane Gait Distance 150 Other Goals up/down 21 steps with R ascending rail and CGA. Days to Meet Goals 3 Frequency of Treatment Frequency Of Treatment Twice a Day Treatment Plan Physical Therapy Treatment Plan Gait Training Therapeutic Exercise Discharge Planning Other Recommendations and Next Treatment stair training, continue Focus training w/SPC during ambulation. Recommendations To Nursing Amount of Assist Needed 1 Person Assist Discharge Recommendations PT Discharge Recommendations Home with Assistance Home Health Other Discharge Recommendations obtain, find her toilet riser. Equipment Needed for Home Before SPC if pt unable to locate Discharge hers
--- NOTE | 2018-09-19 09:56 | PC.NURSE ---
Addendum entered by Kenyetta Barragan R.N. 09/19/18 14:52: 1345: MD in talking with pt about discharge planning. Care management notified 1435: Pt left with all of her belongings in a wheelchair. Discharge paperwork in hand. Discussed all discharge paperwork. Verbalized understanding. IV discontinued, tip intact. Original Note: Addendum entered by Kenyetta Barragan R.N. 09/19/18 13:12: 0920: Pt continues to complain of pain. Will wait 20 more minutes to see if the [place] will kick in. 1015: Dr. Holman notified of pt's pain, low potassium, and 1st degree HB while sleeping. Will increase PRN pain medication, add scheduled pain meds, and potassium replacement. NS infusion discontinued r/t adequate PO intake. 1300: Pt reassessed. Reports 4/10 pain. This is a tolerable pain level for the patient. Original Note: Day Shift 0810: Safety checks done. Pt is a/o x4. Pt complaining of 7/10 abdominal pain. [place] given.
[2018-09-19] MEDS: ALBUTEROL/IPRATROPIUM 3 ML AMPUL INH (10:45)
[2018-09-19 10:47] VITALS: O2SAT 99
[2018-09-19] MEDS: HYDROCODONE/ACET 10/325 TABLET 1 TAB PO (10:55)
[2018-09-19] MEDS: TRAMADOL 50 MG TABLET PO (10:55)
--- NOTE | 2018-09-19 11:30 | OT.IP.EVAL ---
Current Diagnoses Anemia, unspecified (09/09/18) Epilepsy, unspecified, not intractable, without status epilepticus (09/09/18) Diverticulitis of intestine, part unspecified, without perforation or abscess without bleeding (09/09/18) Tubulo-interstitial nephritis, not specified as acute or chronic (09/09/18) Surgery Performed Operation Date: 09/16/18 13:55 Actual Procedures p Colonoscopy WITH BIOPSIES - Neri Perez MD s Esophagogastroduodenoscopy WITH BIOPSIES(Not Applicable) - Neri Perez MD Past Medical History (Last Updated 09/11/18 @ 14:03 by Rock Chavarria MD) Heart palpitations (Acute) Idiopathic intracranial hypertension (Acute) Migraine (Acute) Asthma (Chronic) Chronic knee pain (Chronic) Chronic shoulder pain (Chronic) Epilepsia (Chronic) IBS (irritable bowel syndrome) (Chronic) Incisional hernia (Chronic) PTSD (post-traumatic stress disorder) (Chronic) Surgical History (Last Updated 09/11/18 @ 14:03 by Rock Chavarria MD) Hx laparoscopic cholecystectomy (Resolved) Hx of tonsillectomy (Resolved) Occupational Therapy Inpatient Evaluation/Re-Eval M1 PT/OT-IP Prior Functional Status Start: 09/18/18 11:40 Freq: NEEDED Status: Active Protocol: Document 09/19/18 11:30 SY (Rec: 09/19/18 16:42 PJM [id number]) Medical Review Prior Functional Status Medical History Reviewed Yes Diet/Fluid Consistency Regular Communication WNL Mobility and Gait 4WW for short distance ambulation, SPC indoors (although pt reports her cane is now in storage, she cannot find it). She uses electric cart when shopping. Activities of Daily Living and IADL's Pt needs some assist with socks/shoes when knees very painful. Pt having difficulty stepping over edge of bathtub due to knee pain. Pt/daughter getting Meals on Wheels as pt too fatigued to do much meal prep. Prior Functional Level (Other details) Pt states she has a toilet riser but unsure of where it is because someone moved it when cleaning the apartment. Cannot use 4WW in home to to small space, has a SPC in storage but not sure where it is. Pt presented with R lower quadrant pain, dizziness and nausea in the ER. Colonoscopy found IBS and Crohn's disease (new diagnosis). Social History Household Members family children Living Arrangements Apartment/Condo Number of Floors (Floors) One Floor Number of Stairs To Enter/Railing? 15 steps R ascending rail, landing, then 6+ steps R ascending rail to get up to apartment. Home Environment High Toilet Tub/Shower Home Equipment Front Wheel Walker Shower Seat without Backrest Additional Social History Comment Pt lives with her grandmother who has a broken arm but not casted, states she is not supposed to use it. Grandmother is pt's primary caregiver. Pt also has 11 yr old daughter living with them. M2 OT-IP Current Condition Start: 09/19/18 16:18 Freq: Status: Active Protocol: Document 09/19/18 11:30 PJM (Rec: 09/19/18 16:42 PJ NR) Occupational Therapy Current Condition Current Condition Evaluation Date 09/19/18 Treatment Diagnosis decreased self care, functional mobility, endurance w/new dx Crohn's dz, IBS, chronic R shoulder pain Diagnosis Onset Date 09/09/18 Post Operative Precautions Other Precautions fall risk M3 OT- IP Subjective and Pain Start: 09/19/18 16:18 Freq: Status: Active Protocol: Document 09/19/18 11:30 PJM (Rec: 09/19/18 16:42 PJM [id number]) OT- Subjective Occupational Therapy Visit Type Type Initial Evaluation Visit Start Time 10:41 Visit Stop Time 11:30 Total Visit Minutes 49 Notes Pt awake and alert in bed when therapist arrived, working on adult coloring books. Occupational Therapy Visit Comments Patient Comments I hope I can go home soon. I have been here a long time. Patient/Caregiver Goals to go home, be able to do some cooking and some more artwork , be independent with dressing and bathing OT Pain Assessment Pain When Pain Assessed After Treatment Location Right Lower Abdomen Intensity 3 Scale Used Numeric (1 - 10) Description Aching M4 OT- IP ADL's Start: 09/19/18 16:18 Freq: Status: Active Protocol: Document 09/19/18 11:30 PJM (Rec: 09/19/18 16:42 PJM [id number]) OT [id number] General Evaluation Self-Feeding Ability Independent OT ADL-Grooming General Evaluation Grooming Ability Independent Comments OT Grooming Comments pt reports independent doing grooming standing at sink earlier this AM with nursing staff OT ADL-Oral Care General Eval Oral Care Ability Independent Comments Oral Care Comments pt reports independent doing grooming standing at sink earlier this AM with nursing staff OT ADL-Dressing General Eval Upper Body Dressing Ability Standby Assistance Lower Body Dressing Ability Standby Assistance Areas Needing Assistance Retrieving/Set-up of Clothing Button-Up Shirt/Blouse Underpants/Brief Socks Assistive Devices Dressing Assistive Devices Windows Application Packager Sock Aid Velcro Comments OT Dressing Comments Provided education re: use of commercial appraiser, sock aid and long shoe horn as pt has difficulty reaching feet due to B knee pain and abdominal pain when bending forward. Pt able to use new equipt with BSA after education. OT ADL-Toileting General Evaluation Toileting Ability Independent Comments OT Toileting Comments Provided education re: equipt options/resources to raise height of toilet and provide armrests. Pt will try to obtain BSC for use over toilet at home. Equipt resource list given. OT ADL-Bathing Comments OT Bathing Comments Pt declined to shower this session but reports difficulty washing lower legs and feet, and under R armpit, due to chronic R shoulder pain. Long bath sponge provided. Also provided education re: larger tub seats so pt can sit and swivel into tub. Pictures and resource list provided. M5 OT- IP IADL's Start: 09/19/18 16:18 Freq: Status: Active Protocol: Document 09/19/18 11:30 PJM (Rec: 09/19/18 16:42 PJM [id number]) OT-Instrumental Activities of Daily Living Deficits IADL Deficits Identified Deficits Home Safety Awareness Awareness of Need for Assistance at Home Good Awareness Ability to Problem Solve Emergency Able to Problem Solve Situations Medication Management Medication Management No Deficits Identified Money Management Money Management No Deficits Identified Meal Preparation Meal Preparation Caregiver Provides Assist Meal Preparation Comments Pt too fatigued to do much meal prep. Receives Meals on Wheels. Drivability Technician Drivability Technician Caregiver Provides Assist Drivability Technician Comments Pt has to go to laundry mat with assist to carry clothes. Pt has difficulty with walking through grocery store and uses electric cart. She has difficulty carrying groceries up many stairs to apartment. Driving Driving Caregiver Provides Assist Driving Comments Pt does drive when feeling well; grandmother also drives. M6 OT- IP Functional Cognition Start: 09/19/18 16:18 Freq: Status: Active Protocol: Document 09/19/18 11:30 PJM (Rec: 09/19/18 16:42 PJ [id number]) Cognitive Factors Limiting Selfcare Function Cognitive Ability Level of Alertness Alert Patient Orientation Name Age Birthday Month Date Year Day of Week Place Situation Attention Span Ability Capable of Focused Attention Capable of Sustained Attention Ability to Follow Commands Able to Follow One Step Commands Memory Description No Deficits Noted Problem Solving Ability Needs Assist to Identify Solutions OT- Vision and Hearing OT- Hearing Assessment OT- Hearing Assessment WFL OT- Vision Assessment Visual Acuity WFL Vision Assessment Comments Pt denies any recent vision changes M7 OT- IP Mobility and Balance Start: 09/19/18 16:18 Freq: Status: Active Protocol: Document 09/19/18 11:30 PJM (Rec: 09/19/18 16:42 PJ NR) OT- Bed Mobility Assessment Rolling Type of Rolling Roll to Right Level of Assistance Independent Supine to Sit Supine to Sit Assist Independent Sit to Supine Sit to Supine Assist Independent Scooting Scooting to Edge of Bed Independent OT-Transfer Assessment Sit to and From Stand Sit to and from Stand Standby Assistance Transfers Transfer Ability Standby Assistance Technique Transfer Destination Bed Chair Transfer Technique Stand Step Pivot Devices Transfer Assistive Devices Front Wheeled Walker Comments Mobility Comments pt did bed mobility with flat bed, no rails as per home set up OT- Gait Assessment Gait Gait Assistance Required: Standby Assistance Distance (Feet) 25 Assistive Devices Assistive Device Front Wheeled Walker OT- Balance Assessment Sitting Balance and Reactions Static Sitting Balance Ability Good Dynamic Sitting Balance Ability Good Standing Balance and Reactions Static Standing Balance Ability Good M8 OT- IP Objective Assessments Start: 09/19/18 16:18 Freq: Status: Active Protocol: Document 09/19/18 11:30 PJM (Rec: 09/19/18 16:42 PJ [id number]) OT Gross Range of Motion Upper Extremity Range of Motion Assessment Right Impaired ROM Impairments RUE: Pt cannot initiate any active R shldr scaption. Observed active abduction to ~ 20 degrees. Passive shldr scaption to 90 degrees limited by pain and stiffness. Pt states her shoulder has been painful for 1 year and she has had out P.T. for this. Distal AROM WFL in RUE. LUE: AROM WNL throughout. OT Strength Upper Extremity Strength Assessment Right Impaired Shoulder R 1/5 LUE WFL Elbow R 3+/5 limited by proximal shoulder pain LUE WFL Wrist R 4/5 LUE WFL Hand R 4/5 LUE WFL Hand Trap Setter Strength Hand Dominance Left OT- Coordination Assessment Upper Extremity Finger to Nose Test Right UE Impaired Comments Coordination Comments RUE functional use limited by shoulder pain and lack of AROM . OT-Muscle Tone Assessment Muscle Tone WNL Yes OT Sensation Assessment Comments Summary Comments Pt denies sensory deficits in BUE Edema Edema Comments Min edema noted in B calves/ ankles M9 OT- IP Assessment and Plan Start: 09/19/18 16:18 Freq: Status: Active Protocol: Document 09/19/18 11:30 PJM (Rec: 09/19/18 16:42 PJM [id number]) OT Summary Assessment and Plan Potential Analytic Complexity at Evaluation Low Summary OT Impairments Pain Strength Functional Mobility Dressing Bathing Toilet Transfers Shower Transfers Assessment Summary Low complexity OT assessment completed with emphasis on self care skills. Pt presents with performance deficits in lower body dressing, bathing and toilet transfers. Provided education re: lower body dressing and bathroom safety equipment options. Pt plans to d/c home today with assist from her grandmother. Recommend OT services to increase independence/safety in showering and light IADLS in home setting. Pt would benefit from field crop i farmworker assist for heavier production operations inspector. Frequency of Treatment Frequency Of Treatment Discharge
[2018-09-19 11:50] VITALS: BP 106/64; PULSE 114; RESP 18; TEMP 36.7; O2SAT 97
[2018-09-19] MEDS: GABAPENTIN 300 MG CAPSULE PO (11:57)
[2018-09-19] MEDS: POTASSIUM CHLORIDE 20 MEQ TAB 40 MEQ PO (11:57)
[2018-09-19] MEDS: NYSTATIN CREAM 30 GM 1 APPLIC TOP (13:07)
--- NOTE | 2018-09-19 13:47 | P.DS_ITS ---
History of Present Illness Chief complaint: FEELING WEIRED GOT REALLY DIZZY Narrative: History of Present Illness Date Patient Seen: 09/10/18 Time Patient Seen: 15:48 Chief complaint: FEELING WEIRED GOT REALLY DIZZY Narrative: This is a 33-year-old female with no history of urinary tract infections who presented to the emergency department last night after experiencing waves of ?dizziness and nausea? while shopping using a motorized cart in [place] yesterday. She had been ?feeling warm? for about 2 days but denies chills or fevers. There has been no dysuria, flank pain, abdominal pain. She reports having blood seen in her urine about 2 weeks ago but being reassured there was probably related to her period. She has had no recurrence of that issue. That visit was prompted by knee pain on the right side. Her urine is quite abnormal and she was tachycardic most of the night until after she received several L of IV fluids. The initial white blood count was 16, now down to 10.4 this morning. She continues to feel warm and nauseated. Discharge Providers Date of admission: 09/09/18 22:13 Primary care physician: Valentina Hess MD Consults: 09/09/18 21:56 Consult to Physician Routine Comment: Consulting Provider: Leslie Quinn Reason for consultation: admission 09/11/18 10:36 Consult to General Surgery Routine Comment: Consulting Provider: Rock Chavarria Reason for consultation: Colitis Has provider been notified: Yes 09/17/18 15:57 Consult to Hvac Operations Technician Routine Comment: assess living situation/resources 09/18/18 10:06 Consult to Occupational Therapy Evaluate & Treat Comment: Physician Instructions: Evaluate and treat Consult to Physical Therapy Evaluate & Treat Comment: Physician Instructions: Evaluate and Treat 09/18/18 11:01 Consult to Home Health Routine Comment: 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 WE WILL GO TO HER AGE, SHE HAS AN EXTENSIVE PAST MEDICAL HISTORY. SHE WAS DIAGNOSED FOR UTI WHICH WAS TREATED WITH ANTIBIOTICS DURING THIS HOSPITAL STAY SHE WAS ALSO EXTENSIVELY WORKED UP DUE TO ABDOMINAL COMPLAINTS. SHE HAD A COLONOSCOPY AND CROHN DISEASE OF THIS WE SUSPECTED. PATIENT WAS STARTED ON IV THEN P.O. ANTIBIOTICS WELL IV AND SUBSEQUENTLY P.O. STEROIDS. SHE WAS ALSO STARTED ON SULFASALAZINE . SHE APPEARED TO BE TOLERATING THE MEDICATIONS WITH HIS FRIEND . SHE IS ALSO TOLERATING P.O. WELL SHE WILL BE DISCHARGED TO HOME AND ADDITIONAL MANAGEMENT WILL BE DEFERRED TO OUTPATIENT PROVIDERS EXTENSIVE COUNSELING WAS GIVEN TO PHYSICIANS REGARDING REFRAINING FROM ALCOHOL PRODUCTS. SHE IS ALSO TO REFRAIN FROM TABACCO USE TIME SPENT ON THIS DISCHARGE WAS MORE THAN 40 MIN Status at Discharge Functional status at discharge: independent ambulation Overall status at discharge: patient is back to baseline Time Spent with Patient Greater than 30 minutes Exam Vital Signs (past 8 hours): - 09/19/18 05:55 09/19/18 08:16 09/19/18 08:35 Temperature 97.5 F L 98.0 F Pulse Rate 74 76 Respiratory Rate 14 12 Blood Pressure 97/60 105/71 Pulse Oximetry 94 94 09/19/18 10:47 09/19/18 11:50 Temperature 98.1 F Pulse Rate 114 H Respiratory Rate 18 Blood Pressure 106/64 Pulse Oximetry 99 97 Fraction of Inspired Oxygen 21 Oxygen Delivery Method Room Air Oxygen Flow Rate 0 Const General: cooperative, healthy appearing, comfortable and other (POOR DENTITION) Nutritional Appearance: obese [facility] Head: normal to inspection, normocephalic and atraumatic Nose: external nose normal Face and sinus: normal facial exam Eyes General: appearance normal, both eyes and all related structures Alignment and Position: alignment normal and position normal Conjunctivae: conjunctivae normal Sclera: sclerae normal Pupils: PERRL Neck Neck: normal visual inspection, full ROM, no meningeal signs, trachea midline and supple Thyroid: thyroid normal Resp Effort & Inspection: normal respiratory effort and able to speak in complete sentences Auscultation: clear to auscultation bilaterally and diminished lung sounds (AT THE BASES ) Cardio Palpation: normal PMI Rate: regular rate Heart Sounds: S1 normal and S2 normal GI Inspection: normal to inspection and obesity Palpation: soft and no hepatosplenomegaly Percussion: normal to percussion Auscultation: normal bowel sounds General: bimanual renal exam normal bilaterally External Female Exam: external appearance normal Speculum Exam - Vagina: normal appearance of the vagina Back/Spine/Pelvis Back: normal to inspection Cervical Spine: normal cervical lordosis Thoracic/Lumbar Spine: thoracic and lumbar spine normal to inspection Skin General: no rashes or lesions noted, elasticity normal and turgor normal Lesions: no lesions Rashes: no rashes Neuro General: alert, awake, oriented x3, gait normal and CN's II-XI intact bilaterally Gait: normal gait Extrem General: normal to inspection and no joint enlargement Right upper extremity: normal to inspection, full ROM and no joint enlargement Psych Appearance: grossly normal Mental Status: mental status grossly normal Thought Process: normal Judgment: judgment good Objective Labs Result Diagrams: 09/19/18 05:23 09/19/18 05:23 Labs: Laboratory Results - last 24 hr 09/18/18 09/19/18 09/19/18 14:34 05:23 05:23 WBC 5.8 RBC 3.86 L Hgb 9.9 L Hct 31.8 L MCV 82.3 MCH 25.6 L MCHC 31.1 RDW 18.4 H Plt Count 352 Neut % (Auto) 77.6 H Lymph % (Auto) 15.9 L [place] % (Auto) 6.4 Eos % (Auto) 0.1 L Baso % (Auto) 0.0 Neut # (Auto) 4500 Sodium 142 Potassium 3.1 L Chloride 109 H Carbon Dioxide 25 BUN 3 L Creatinine 0.40 L Estimated GFR > 60.0 BUN/Creatinine Ratio 7.5 Glucose 127 H Calcium 7.9 L Stool Aeromonas Cult Neg for aeromonas Stl C. cayetanensis PCR Not detected Stool Rotavirus (PCR) Not detected Stool Adenovirus (PCR) Not detected Stool Astrovirus (PCR) Not detected Stool Cryptosporidium PCR Not detected Stl E.coli Shiga Tox PCR Not detected St Sh/Enteroin Ecoli PCR Not detected Stool E coli O157 PCR Not Reportable Stl Enterotoxigenic E PCR Not detected Stool EPEC (PCR) Not detected Stl E. histolytica PCR Not detected Stool Giardia Lamblia PCR Not detected Stool Sapovirus (PCR) Not detected Stl P. shigelloides PCR Not detected St Y.enterocolitica PCR Not detected Stool Vibrio (PCR) Not detected Stl Vibrio cholerae PCR Not detected Stl Enteroaggr Ecoli PCR Not detected Stl Norovirus GI/GII PCR Not detected Campylobacter (PCR) Not detected C. difficile Tox (PCR) Not detected Salmonella (PCR) Not detected Discharge Plan Discharge Plan Patient Disposition: Home Discharge comment: dc home with home health today act as ranjeet cardiac diet(low residue) no tobacco or etoh products f/u with GI and pcp 3-10 days Discharge Med Rec/Prescriptions Prescriptions: New gabapentin [Neurontin] 300 mg Capsule 300 mg PO TID Qty: 90 RF: 0 hydrocodone-acetaminophen 10-325 mg Tablet 1 tab PO Q4HR PRN (Reason: Pain, Moderate (4-6)) Qty: 30 RF: 0 sulfasalazine 500 mg Tablet 1,000 mg PO BID Qty: 180 RF: 0 tramadol 50 mg Tablet 50 mg PO BID Qty: 30 RF: 0 Discontinued cetirizine 10 mg tablet 10 mg PO DAILY RF: 0 acetaminophen [Mapap Arthritis Pain] 650 mg tablet extended release 650 mg PO TID RF: 0 albuterol sulfate [ProAir HFA] 90 mcg/actuation HFA aerosol inhaler 1 puff Inhalation PRN PRN (Reason: Shortness Of Breath) RF: 0 pregabalin [Lyrica] 225 mg capsule 225 mg PO BID RF: 0 Follow up/Referrals: Valentina Hess MD [Primary Care Provider] - (follow up with your physician assistant primary care after discharge from hospital) Provider Discharge Instructions Diet: Low-fat and Low-cholesterol Visit Report/Discharge Packet Instructions: DI for Crohn's Disease, Eating a Diet Low in Saturated Fat, Trans Fat, and Cholesterol, How to Prevent Falls, Hydrocodone Combination Products, Sulfasalazine, Gabapentin, Tramadol, DI for Crohn's Disease Flare Visit Report Forms: Stroke Signs & Symptoms Discharge Data Primary Care Provider: Valentina Hess Attending Provider: Leslie Quinn Admit Date/Time: 09/09/18 22:13 Discharges patient from system. Discharge Date/Time: 09/19/18 15:00 Quality VTE Deep Vein Thrombosis/Pulmonary Embolism Present on Admission: No
--- NOTE | 2018-09-19 14:16 | CM.DPC ---
Addendum entered by Niurka Atkinson LPN 09/19/18 14:46: Rosamaria/Bertha is updated re the specifics of the d/c. She confirms that [facility] [employer] is not covered under the CC/Medicaid insurance. Had amended the Face/Face with updated fax to reflect [employer] support only if the insurance allows and had added the specifics of the re the hospitalist and the PCP. Original Note: DCP: continued: pt now deemed stable for d/c to home.Bertha RAYA already has the needed orders and Face/Face. Moreno called to make sure this pt was homebound and pt does again confirm this today. Pt says she is hopeful that now that she has a dx and she will be able to work with HH therapy she will begin to do better and eventually leave the homebound status behind. Barrier arose: transport. Due to lateness of the d/c order (just in now) pt's grandmother will be unable to pick her up as she is picking up the 11 year old at school and would not have time to come over here to get pt and return before dark. Pt has occ uses transport available in [place] but is not set up for medicaid transport she saws. Due to need to d/c this afternoon (RN coordinator notes urgency of beds) decision made to use [employer] so that pt could leave here at 1445 and be at home in time for the grandmother to have returned from the school and assist pt up the flight of stairs. Will use [employer]/discussed with and ok'd by CM sugar cane farm manager Denice Watkins. Pt says she will be fine to go in the taxi and appreciates the assistance. [employer] is now set up for 1445 pickup ER entrance. [facility] paperwork filled out. 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 Copy to Denice. Bertha is updated re the d/c. Will fax d/c summary when available and these CM notes.
== END 2018-09-19 15:00 | disposition home health service (06) | DRG 387 ==
LOC: ED 22:00 → AC 09-10 00:28
PROVIDERS: Internal Medicine; Specialist; Surgery; Admitting Provider Family Medicine; Emergency Provider Nurse Practitioner Family; PCP Psychiatry & Neurology Neurology; Visit Provider Family Medicine
PROC: 0DJD8ZZ Inspection of Lower Intestinal Tract, Via Natural or Artificial Opening Endoscopic (ICD-10-PCS; CPT 45378; principal; 2018-09-16 13:55)
PROC: 0DJ08ZZ Inspection of Upper Intestinal Tract, Via Natural or Artificial Opening Endoscopic (ICD-10-PCS; CPT 43235; 2018-09-16 13:55)
DX: K50.80 Crohn's disease of both small and large intestine without complications (principal); K60.3 Anal fistula; D47.3 Essential (hemorrhagic) thrombocythemia; J45.909 Unspecified asthma, uncomplicated; M25.569 Pain in unspecified knee; M25.519 Pain in unspecified shoulder; G43.909 Migraine, unspecified, not intractable, without status migrainosus; D63.8 Anemia in other chronic diseases classified elsewhere; Z76.5 Malingerer [conscious simulation]; G89.4 Chronic pain syndrome
CPT/HCPCS: 36415; 36591; 43239; 45380; 70450; 71045; 71275; 74177; 80048; 80053; 81003; 81015; 81025; 82550; 82607; 83540; 83605; 83690; 84145; 84443; 84484; 85025; 85379; 87040; 87086; 87150; 87205; 87493; 87507; 93005; 93041; 94640; 94760; 96361; 96365; 96375; 97116; 97162; 97165; 97535; 99231; 99232; 99285; J1100; J1170; J1200; J1720; J1956; J2405; J2704; J3243; Q9967

== ENCOUNTER 2018-09-23 13:52 | Emergency (ER) | payer OTHER, MEDICAID, SELFPAY ==
[2018-09-09 22:45] VITALS: BMI 28.1
[2018-09-23 14:03] VITALS: BP 118/77; PULSE 105; RESP 20; TEMP 37; O2SAT 95; BMI 28.1
--- NOTE | 2018-09-23 17:08 | ED_ITS ---
HPI - Nausea/Vomiting/Diarrhea <JOLENE Murphy - Last Filed: 09/23/18 22:26> General Chief complaint: Nausea/Vomiting/Diarrhea Stated complaint: HEADACHE,STOMACH HURTS,NAUSEA Time Seen by Provider: 09/23/18 17:01 Source: patient Mode of arrival: ambulatory Limitations: no limitations History of Present Illness HPI Narrative: 33-year-old female that was recently admitted for having abdominal pain and pyelonephritis a couple of weeks ago and was recently discharged 4 days ago that is a nonsmoker here for complaint of having ongoing right upper quadrant abdominal pain. She also reports that she has had nausea and vomiting. She states that the Zofran has not been helping her nausea and vomiting well. She denies any fevers or chills. She denies any urinary symptoms. She does state that she has had some dark stool recently as well. She was referred to Gastroenterology. She said that she has not been able to get a hold to Gastroenterology and is awaiting a follow-up appointment. She denies any stressors or relievers of her pain. She denies any other concerns or complaints at this time. Related Data Previous Rx's Medication Instructions Recorded gabapentin [Neurontin] 300 mg PO TID #90 cap 09/19/18 hydrocodone-acetaminophen 1 tab PO Q4HR PRN #30 tab 09/19/18 sulfasalazine 1,000 mg PO BID #180 tab 09/19/18 tramadol 50 mg PO BID #30 tab 09/19/18 promethazine 25 mg PO Q6H PRN #20 tab 09/23/18 Allergies Allergy/AdvReac Type Severity Reaction Status Date / Time cephalexin [From KEFLEX] Allergy Severe Anaphylaxis Verified 09/11/18 15:05 ibuprofen [IBUPROFEN] Allergy Severe severe Verified 09/09/18 15:30 headaches vancomycin [VANCOMYCIN] Allergy Severe martha Verified 09/09/18 15:30 fluoxetine [From PROZAC] Allergy Unknown Verified 09/09/18 15:30 Sulfa (Sulfonamide AdvReac Mild CONSTIPATIO Verified 09/09/18 15:30 Antibiotics) N [SULFA (SULFONAMIDE ANTIBIOTICS)] aspirin [ASPIRIN] AdvReac Unknown SINCE Verified 09/09/18 15:30 CHILDHOOD UNKNOWN Quinolones AdvReac Unknown tachycardia Verified 09/11/18 15:05 NSAIDS (Non-Steroidal AdvReac Gastrointestinal Verified 09/09/18 23:16 Anti-Inflamma Upset Review of Systems <JOLENE Murphy - Last Filed: 09/23/18 22:26> Review of Systems All systems reviewed & are unremarkable except as noted in HPI and below Constitutional Denies chills, Denies fatigue, Denies fever(s), Denies lethargy and Denies weakness ENT Ears, Nose, Mouth, and Throat: Denies change in voice, Denies neck pain and Denies sore throat Cardiovascular Denies dyspnea and Denies dyspnea on exertion Respiratory Denies cough, Denies dyspnea, Denies dyspnea on exertion and Denies wheezing Gastrointestinal Gastrointestinal: Reports abdominal pain, Denies change in bowel habits, Denies diarrhea, Reports nausea and Reports vomiting Genitourinary Denies hematuria, Denies flank pain, Denies urinary incontinence and Denies urinary urgency Musculoskeletal Denies neck pain Integumentary/Breasts Denies pruritus, Denies erythema, Denies rash and Denies wounds Neurologic Denies confusion and Denies weakness Psychiatric Denies anxiety, Denies confusion, Denies depression, Denies homicidal ideation and Denies suicidal ideation Endocrine Denies fatigue and Denies flushing Hematologic/Lymphatic Denies easy bruising Allergic/Immunologic Denies wheezing Exam <JOLENE Murphy - Last Filed: 09/23/18 22:26> Initial Vital Signs Initial Vital Signs: Vital Signs Temperature 98.6 F 09/23/18 14:03 Pulse Rate 105 H 09/23/18 14:03 Respiratory Rate 20 09/23/18 14:03 Blood Pressure 118/77 09/23/18 14:03 Pulse Oximetry 95 09/23/18 14:03 Const General: cooperative and well developed Nutritional Appearance: well nourished Orientation: alert, awake, oriented x3 and not confused [facility] Mouth: oral mucosae normal and moist mucous membranes Eyes Conjunctivae: conjunctivae normal Sclera: sclerae normal Pupils: PERRL EOM: EOM intact bilaterally Resp Effort & Inspection: normal respiratory effort, able to speak in complete sentences, no respiratory distress and no use of accessory muscles Auscultation: clear to auscultation bilaterally, no rales, no rhonchi and no wheezes Cardio Rate: regular rate Rhythm: regular rhythm Heart Sounds: no click, no gallops, no murmurs and no rubs Pulses: normal peripheral pulses GI Inspection: non-distended Palpation: soft, no hepatosplenomegaly, No guarding, No pulsatile mass and tender ( Tenderness right upper quadrant) Auscultation: normal bowel sounds General: No CVA tenderness Skin General: no rashes or lesions noted, No jaundice and No petechiae Neuro General: alert, oriented x3, gait normal and no focal motor deficits Speech: speech normal <Bridget Jay DO - Last Filed: 09/24/18 03:13> Initial Vital Signs Initial Vital Signs: Vital Signs Temperature 98.6 F 09/23/18 14:03 Pulse Rate 105 H 09/23/18 14:03 Respiratory Rate 20 09/23/18 14:03 Blood Pressure 118/77 09/23/18 14:03 Pulse Oximetry 95 09/23/18 14:03 Course <JOLENE Murphy - Last Filed: 09/23/18 22:26> Orders Ordered: ED Orders 09/23/18 18:25 Complete Blood Count AUTO DIFF Stat Comprehensive Metabolic Panel Stat Lipase Stat Discontinued Medications Sodium Chloride (Normal Saline 0.9%) 1,000 mls @ 1,000 mls/hr IV BOLUS ONE Stop: 09/23/18 19:08 Last Infusion: 09/23/18 20:57 Dose: 0 mls/hr Admin: 09/23/18 18:21 Dose: 1,000 mls/hr Ondansetron HCl (Zofran) 4 mg IV NOW ONE Stop: 09/23/18 18:10 Last Admin: 09/23/18 18:21 Dose: 4 mg Vital Signs - 8 hr 09/23/18 20:06 09/23/18 20:47 09/23/18 20:58 Pulse Rate 95 H 87 79 Respiratory Rate 14 Blood Pressure 116/72 Blood Pressure [Left Arm] 103/56 L 99/61 Pulse Oximetry 100 95 <Bridget Jay DO - Last Filed: 09/24/18 03:13> Orders Ordered: ED Orders 09/23/18 18:25 Complete Blood Count AUTO DIFF Stat Comprehensive Metabolic Panel Stat Lipase Stat Discontinued Medications Sodium Chloride (Normal Saline 0.9%) 1,000 mls @ 1,000 mls/hr IV BOLUS ONE Stop: 09/23/18 19:08 Last Infusion: 09/23/18 20:57 Dose: 0 mls/hr Admin: 09/23/18 18:21 Dose: 1,000 mls/hr Ondansetron HCl (Zofran) 4 mg IV NOW ONE Stop: 09/23/18 18:10 Last Admin: 09/23/18 18:21 Dose: 4 mg Vital Signs - 8 hr 09/23/18 20:06 09/23/18 20:47 09/23/18 20:58 Pulse Rate 95 H 87 79 Respiratory Rate 14 Blood Pressure 116/72 Blood Pressure [Left Arm] 103/56 L 99/61 Pulse Oximetry 100 95 MDM - Nausea/Vomiting/Diarrhea <JOLENE Murphy - Last Filed: 09/23/18 22:26> Lab Data Result diagrams: 09/23/18 18:25 09/23/18 18:25 Lab Results 09/23/18 09/23/18 Range/Units 18:25 18:25 WBC 7.6 (4.5-11.0) X10^3/uL RBC 4.25 (4.0-5.2) X10^6/uL Hgb 11.0 L (12.0-16.0) g/dL Hct 33.8 L (36-46) % MCV 79.5 L (80-100) fL MCH 26.0 (26-34) PG MCHC 32.7 (30-36) % RDW 18.4 H (11.6-14.8) % Plt Count 419 H (150-400) X10^3/uL Neut % (Auto) 48.8 L (50-75) % Lymph % (Auto) 40.0 (25-40) % [place] % (Auto) 9.6 (3-14) % Eos % (Auto) 1.4 L (2-4) % Baso % (Auto) 0.2 (0-2) % Neut # (Auto) 3700 (6463-7971) /uL Sodium 142 (137-145) mmol/L Potassium 3.3 L (3.4-5.1) mmol/L Chloride 104 (98-107) mmol/L Carbon Dioxide 31 (22-32) mmol/L BUN < 2 L (7-17) mg/dL Creatinine 0.40 L (0.52-1.04) mg/dL Estimated GFR > 60.0 (>60) mL/min BUN/Creatinine Ratio 5.0 L (6-22) Glucose 82 (70-100) mg/dL Calcium 8.0 L (8.4-10.2) mg/dL Total Bilirubin 0.3 (0.2-1.3) mg/dL AST 22 (14-36) IU/L ALT 21 (9-52) IU/L Alkaline Phosphatase 83 (38-126) U/L Total Protein 5.4 L (6.3-8.2) g/dL Albumin 2.5 L (3.5-5.0) g/dL Globulin 2.9 (1.7-4.1) g/dL Albumin/Globulin Ratio 0.9 L (1.0-2.8) Lipase 50 (23-300) U/L Point of Care Testing Stool Occult Blood Negative Urine Dip Bedside Urine Glucose Negative Bedside Urine Bilirubin - Negative Bedside Urine Ketone - Negative Urine Specific [place] 1.015 Bedside Urine Occult Blood - Negative Bedside Urine pH 8.0 Bedside Urine Protein - Negative Bedside Urine Urobilinogen - Negative Bedside Urine Nitrite - Negative Bedside Urine Leukocytes - Negative Esterase Imaging Data US - abdomen: Radiologist's impression: [address] [address] Ultrasound Report Signed Patient: Zaina Yeboah LMR#: [id number] : 1985Acct:[id number] Age/Sex: 33 / FDate of Service: 09/23/18 Loc: ED Accession Number: [id number] Procedure: US abdomen complete Ordering Provider: Turner Esquivel PROCEDURE: US ABDOMEN COMPLETE INDICATIONS: Worsening abdominal pain right upper quadrant TECHNIQUE: Real-time scanning was performed of the abdominal and retroperitoneal organs, with image documentation. COMPARISON: [facility], CT, CT ABDOMEN PELVIS W CON, 09/15/2018, 11:23. FINDINGS: Liver: Liver is normal in size and homogeneous in echotexture. Gallbladder: Surgically absent Biliary ducts: Intrahepatic bile ducts are non-dilated. Extrahepatic bile duct caliber measures 6 mm. Normal is 6-7 mm or less in diameter, or 10 mm or less post-cholecystectomy. Pancreas: Visualized portions of the pancreas are sonographically normal. Spleen: Spleen is normal in size and homogeneous in echotexture. Kidneys: Kidneys are normal in size and echotexture. Right kidney measures 10.2 cm long; left kidney measures 10.9 cm long. No hydronephrosis. There is an echogenic focus adjacent to the superior pole left kidney, which may represent a loop of colon as seen by CT. No solid masses. Aorta: Visualized aorta is normal in caliber at less than 3 cm. Iliacs: Proximal common iliac arteries are normal in caliber at less than 2.5 cm. IVC: Intrahepatic inferior vena cava is patent. Miscellaneous: No free abdominal fluid. IMPRESSION: 1. No acute process. Dictated by: Lashonda Jimenes M.D. on 09/23/2018 at 20:03 Approved by: Lashonda Jimenes M.D. on 09/23/2018 at 20:04 [facility] Narrative Medical decision making narrative: ultrasound of the abdomen was obtained was unremarkable. CBC was negative for elevated white count. Does show mild anemia however this is consistent with her prior lab Values and is otherwise unremarkable. Chem panel shows mildly decreased potassium at 3.3. she does not get decreased protein and also decreased albumin these are also consistent with her recent lab values. she was able tolerate p.o. Intake in the emergency room. is suspected that she is suffering from Crohn's. She is prescribed Phenergan to use for nausea not controlled by Zofran. She is encouraged to follow up with GI Beginning next week. Use currently been prescribed pain management regimen. Plenty of fluids. For any worsening symptoms return to the emergency room. <Bridget Jay DO - Last Filed: 09/24/18 03:13> Lab Data Lab Results 09/23/18 09/23/18 Range/Units 18:25 18:25 WBC 7.6 (4.5-11.0) X10^3/uL RBC 4.25 (4.0-5.2) X10^6/uL Hgb 11.0 L (12.0-16.0) g/dL Hct 33.8 L (36-46) % MCV 79.5 L (80-100) fL MCH 26.0 (26-34) PG MCHC 32.7 (30-36) % RDW 18.4 H (11.6-14.8) % Plt Count 419 H (150-400) X10^3/uL Neut % (Auto) 48.8 L (50-75) % Lymph % (Auto) 40.0 (25-40) % [place] % (Auto) 9.6 (3-14) % Eos % (Auto) 1.4 L (2-4) % Baso % (Auto) 0.2 (0-2) % Neut # (Auto) 3700 (8987-1209) /uL Sodium 142 (137-145) mmol/L Potassium 3.3 L (3.4-5.1) mmol/L Chloride 104 (98-107) mmol/L Carbon Dioxide 31 (22-32) mmol/L BUN < 2 L (7-17) mg/dL Creatinine 0.40 L (0.52-1.04) mg/dL Estimated GFR > 60.0 (>60) mL/min BUN/Creatinine Ratio 5.0 L (6-22) Glucose 82 (70-100) mg/dL Calcium 8.0 L (8.4-10.2) mg/dL Total Bilirubin 0.3 (0.2-1.3) mg/dL AST 22 (14-36) IU/L ALT 21 (9-52) IU/L Alkaline Phosphatase 83 (38-126) U/L Total Protein 5.4 L (6.3-8.2) g/dL Albumin 2.5 L (3.5-5.0) g/dL Globulin 2.9 (1.7-4.1) g/dL Albumin/Globulin Ratio 0.9 L (1.0-2.8) Lipase 50 (23-300) U/L Point of Care Testing Stool Occult Blood Negative Urine Dip Bedside Urine Glucose Negative Bedside Urine Bilirubin - Negative Bedside Urine Ketone - Negative Urine Specific [place] 1.015 Bedside Urine Occult Blood - Negative Bedside Urine pH 8.0 Bedside Urine Protein - Negative Bedside Urine Urobilinogen - Negative Bedside Urine Nitrite - Negative Bedside Urine Leukocytes - Negative Esterase Discharge Plan Departure Patient Disposition: Home Clinical Impression: Nausea & vomiting Discharge Date/Time: 09/23/18 20:58 Interventions: ED Discharge Assessment Last Done: 09/23/18 20:58 Instructions: DI for Crohn's Disease Activity Restrictions/Additional Instructions: Laboratory results and imaging today were unremarkable. follow-up with Gastroenterology next week for re-evaluation. Continue to use prescribed medications as prescribed for pain and for nausea. May use Phenergan as prescribed for nausea not controlled by the Zofran. Plenty of fluids. Plenty of fluids. For any worsening symptoms return to the emergency room. Prescriptions: New promethazine 25 mg tablet 25 mg PO Q6H PRN (Reason: nausea and vomiting) Qty: 20 RF: 0 No Action gabapentin [Neurontin] 300 mg Capsule 300 mg PO TID Qty: 90 RF: 0 hydrocodone-acetaminophen 10-325 mg Tablet 1 tab PO Q4HR PRN (Reason: Pain, Moderate (4-6)) Qty: 30 RF: 0 sulfasalazine 500 mg Tablet 1,000 mg PO BID Qty: 180 RF: 0 tramadol 50 mg Tablet 50 mg PO BID Qty: 30 RF: 0 Referrals: Valentina Hess MD [Primary Care Provider] - <Bridget Jay DO - Last Filed: 09/24/18 03:13> Cosign ED Attending Chante Attestation: I was immediately available in the department for consultation. Documentation has been reviewed. I agree with assessment and plan.
--- NOTE | 2018-09-23 18:09 | DI.US.S_ITS ---
PROCEDURE: US ABDOMEN COMPLETE INDICATIONS: Worsening abdominal pain right upper quadrant TECHNIQUE: Real-time scanning was performed of the abdominal and retroperitoneal organs, with image documentation. COMPARISON: [facility], CT, CT ABDOMEN PELVIS W CON, 09/15/2018, 11:23. FINDINGS: Liver: Liver is normal in size and homogeneous in echotexture. Gallbladder: Surgically absent Biliary ducts: Intrahepatic bile ducts are non-dilated. Extrahepatic bile duct caliber measures 6 mm. Normal is 6-7 mm or less in diameter, or 10 mm or less post-cholecystectomy. Pancreas: Visualized portions of the pancreas are sonographically normal. Spleen: Spleen is normal in size and homogeneous in echotexture. Kidneys: Kidneys are normal in size and echotexture. Right kidney measures 10.2 cm long; left kidney measures 10.9 cm long. No hydronephrosis. There is an echogenic focus adjacent to the superior pole left kidney, which may represent a loop of colon as seen by CT. No solid masses. Aorta: Visualized aorta is normal in caliber at less than 3 cm. Iliacs: Proximal common iliac arteries are normal in caliber at less than 2.5 cm. IVC: Intrahepatic inferior vena cava is patent. Miscellaneous: No free abdominal fluid. IMPRESSION: 1. No acute process. Dictated by: Lashonda Jimenes M.D. on 09/23/2018 at 20:03 Approved by: Lashonda Jimenes M.D. on 09/23/2018 at 20:04
[2018-09-23] MEDS: ONDANSETRON 4 MG/2 ML INJ IV (18:21)
[2018-09-23] MEDS: SODIUM CHLORIDE 0.9% 1,000 ML 1000 ML IV (18:21)
[2018-09-23 18:46] LABS: Add Manual Diff / Slide Review NO; Basophils Percent Auto 0.2 % (0-2); Eosinophils Percent Auto 1.4 % (2-4); Hematocrit 33.8 % (36-46); Mean Corpuscular HGB Conc 32.7 % (30-36); Mean Corpuscular Volume 79.5 fL (80-100); Monocytes Percent Auto 9.6 % (3-14); Neutrophils Absolute Auto 3700 /uL (3000-5900); Neutrophils Percent Auto 48.8 % (50-75); Platelet Count 419 X10^3/uL (150-400); Red Blood Cell Count 4.25 X10^6/uL (4.0-5.2); Red Cell Distribution Width 18.4 % (11.6-14.8); White Blood Cell Count 7.6 X10^3/uL (4.5-11.0)
[2018-09-23 19:00] LABS: Alanine Aminotransferase 21 IU/L (9-52); Albumin 2.5 g/dL (3.5-5.0); Albumin Globulin Ratio 0.9 (1.0-2.8); Alkaline Phosphatase 83 U/L (38-126); Aspartate Aminotransferase 22 IU/L (14-36); Bilirubin Total 0.3 mg/dL (0.2-1.3); Carbon Dioxide 31 mmol/L (22-32); Chloride 104 mmol/L (98-107); Estimated Glomerular Filt Rate > 60.0 mL/min (>60); Globulin 2.9 g/dL (1.7-4.1); Glucose 82 mg/dL (70-100); HEMOLYSIS < 15 (0-50); Lipase 50 U/L (23-300); Potassium 3.3 mmol/L (3.4-5.1); Sodium 142 mmol/L (137-145); Total Protein 5.4 g/dL (6.3-8.2)
[2018-09-23 19:04] LABS: Blood Urea Nitrogen < 2 mg/dL (7-17)
[2018-09-23 20:06] VITALS: BP 103/56; PULSE 95; RESP 14; O2SAT 100
[2018-09-23 20:47] VITALS: BP 99/61; PULSE 87; O2SAT 95
[2018-09-23 20:58] VITALS: BP 116/72; PULSE 79
== END 2018-09-23 20:58 | disposition home or self-care (01) ==
PROVIDERS: Emergency Provider Nurse Practitioner Family; PCP Psychiatry & Neurology Neurology
DX: R11.2 Nausea with vomiting, unspecified (principal)
CPT/HCPCS: 36591; 76700; 80053; 81003; 82272; 83690; 85025; 96361; 96374; 99283; 99284; J2405

== ENCOUNTER → 2018-09-26 12:57 | Outpatient (CLI) | payer OTHER, MEDICAID, SELFPAY ==
[2018-09-09 22:45] VITALS: BMI 28.1
--- NOTE | 2018-09-26 | DI.MRI.S_ITS ---
PROCEDURE: MR CERVICAL SPINE WO CON INDICATIONS: NECK PAIN TECHNIQUE: Noncontrast sagittal T1 spin echo and T2 fast spin echo, sagittal STIR, foraminal oblique sagittal T2 fast spin echo, and axial gradient echo or T2 fast spin echo through the cervical spine. COMPARISON: [facility], CR, XR CERVICAL SPINE WITH OBLIQUES, 05/09/2018, 12:39. FINDINGS: Image quality: Excellent. Alignment and Curvature: There is loss of normal cervical lordosis, and otherwise normal bony alignment. Bone Marrow: Marrow demonstrates normal overall signal. Spinal Cord: Visualized spinal cord has normal size and signal. No cerebellar tonsillar herniation. Paraspinous Soft Tissues: No paravertebral masses. Prevertebral soft tissues are normal in thickness. C2-C3: Normal appearance. C3-C4: Normal appearance. C4-C5: Normal appearance. C5-C6: Normal appearance. C6-C7: Normal appearance. C7-T1: Normal appearance. IMPRESSION: Loss of normal cervical lordosis. Otherwise negative cervical spine MRI. No neural impingement. Dictated by: Lashonda Jimenes M.D. on 09/26/2018 at 15:16 Approved by: Lashonda Jimenes M.D. on 09/26/2018 at 15:19
== END ==
PROVIDERS: PCP Psychiatry & Neurology Neurology; Visit Provider Orthopaedic Surgery
DX: M54.2 Cervicalgia (principal)
CPT/HCPCS: 72141

== ENCOUNTER 2018-10-10 14:51 | Emergency (ER) | payer OTHER, MEDICAID, SELFPAY ==
[2018-09-09 22:45] VITALS: BMI 28.1
[2018-10-10 14:52] VITALS: BP 114/86; PULSE 102; RESP 18; TEMP 36.7; O2SAT 98
[2018-10-10 15:30] VITALS: BP 113/73; PULSE 95; RESP 18; O2SAT 98
--- NOTE | 2018-10-10 15:40 | DI.RAD.S_ITS ---
PROCEDURE: XR CHEST 1V INDICATIONS: chest pain TECHNIQUE: One view of the chest was acquired. COMPARISON: [facility], CR, XR CHEST 1V, 09/09/2018, 16:22. FINDINGS: Surgical changes and devices: None. Lungs and pleura: No pleural effusions or pneumothorax. Lungs are clear. Mediastinum: Mediastinal contours appear normal. Heart size is normal. Bones and chest wall: Dextrocurvature of the thoracolumbar spine IMPRESSION: No acute disease. Dictated by: Emmett Matute M.D. on 10/10/2018 at 16:13 Approved by: Emmett Matute M.D. on 10/10/2018 at 16:14
--- NOTE | 2018-10-10 15:48 | ED.CHESTPAIN ---
HPI - Chest Pain General Chief Complaint: Chest Pain Stated Complaint: states sharp chest pain since 11am. Time Seen by Provider: 10/10/18 15:38 Source: patient Mode of arrival: ambulatory Limitations: no limitations History of Present Illness HPI narrative: Patient is a 33-year-old female who presents with left-sided chest pain. She does have a history of palpitations and tachycardia she says it was not like this. She felt it was sharp stabbing nonradiating lasted for about an hour now resolving now that she is in the ED. She denies any nausea or shortness of breath. MD complaint: chest pain Onset (ago): hour(s) Duration: improved Onset: during rest Pain location: left chest Severity: moderate Relieving factors: nothing Related Data Home Medications Medication Instructions Recorded Confirmed Lactobac #2-Bifido #1-S. therm 8 cap PO DAILY 10/10/18 10/10/18 acetaminophen [Mapap Arthritis 650 mg PO Q8H PRN 10/10/18 10/10/18 Pain] albuterol sulfate 2.5 mg INHALATION Q8H PRN 10/10/18 10/10/18 albuterol sulfate [ProAir HFA] 2 puff INHALATION Q4H PRN 10/10/18 10/10/18 amitriptyline 75 mg PO BEDTIME 10/10/18 10/10/18 budesonide-formoterol [Symbicort] 2 puff INHALATION BID 10/10/18 10/10/18 cetirizine 10 mg PO DAILY 10/10/18 10/10/18 diphenhydramine HCl 25 - 50 mg PO BID PRN 10/10/18 10/10/18 ergocalciferol (vitamin D2) 50,000 units PO QWEEK 10/10/18 10/10/18 [Vitamin D2] hydrocodone-acetaminophen 1 tab PO Q6H PRN 10/10/18 10/10/18 mesalamine [Pentasa] 1,000 mg PO TID 10/10/18 10/10/18 metoprolol tartrate 25 mg PO BID 10/10/18 10/10/18 pregabalin [Lyrica] 225 mg PO BID 10/10/18 10/10/18 prochlorperazine maleate 10 mg PO Q8H PRN 10/10/18 10/10/18 promethazine [Phenadoz] 25 mg IN Q4H PRN 10/10/18 10/10/18 topiramate [Topamax] 50 mg PO BID 10/10/18 10/10/18 tramadol 50 mg PO BID 10/10/18 10/10/18 Previous Rx's Medication Instructions Recorded sulfasalazine 1,000 mg PO BID #180 tab 09/19/18 Allergies Allergy/AdvReac Type Severity Reaction Status Date / Time cephalexin [From KEFLEX] Allergy Severe Anaphylaxis Verified 10/10/18 15:02 ibuprofen [IBUPROFEN] Allergy Severe severe Verified 10/10/18 15:02 headaches vancomycin [VANCOMYCIN] Allergy Severe martha Verified 10/10/18 15:02 fluoxetine [From PROZAC] Allergy Unknown Verified 10/10/18 15:02 Sulfa (Sulfonamide AdvReac Mild CONSTIPATIO Verified 10/10/18 15:02 Antibiotics) N [SULFA (SULFONAMIDE ANTIBIOTICS)] aspirin [ASPIRIN] AdvReac Unknown SINCE Verified 10/10/18 15:02 CHILDHOOD UNKNOWN Quinolones AdvReac Unknown tachycardia Verified 10/10/18 15:02 NSAIDS (Non-Steroidal AdvReac Gastrointestinal Verified 10/10/18 15:02 Anti-Inflamma Upset Review of Systems Review of Systems GENERAL: Denies chills, fatigue, malaise, fever, sweats, travel HEENT: Denies sinus pain, ear pain, sore throat, difficulty swallowing, neck pain RESPIRATORY: Denies dyspnea, cough, wheezing, hemoptysis, sputum. CARDIOVASCULAR: See HPI GASTROINTESTINAL: Denies nausea, vomiting, abdominal pain, diarrhea, constipation, melena. : Denies dysuria, frequency, incontinence, hematuria, urinary retention, flank pain. MUSCULOSKELETAL: Denies weakness, joint pain, or bony pain SKIN: No rash, no erythema, no pruritus NEUROLOGIC: Denies weakness, dizziness, headache, numbness, change in speech, confusion PSYCHIATRIC: No concerning psychosocial issues. 12 point review of systems is negative except for those stated above and HPI [facility] Medical History Heart palpitations (Acute) Idiopathic intracranial hypertension (Acute) Migraine (Acute) Asthma (Chronic) Chronic knee pain (Chronic) Chronic shoulder pain (Chronic) Epilepsia (Chronic) IBS (irritable bowel syndrome) (Chronic) Incisional hernia (Chronic) PTSD (post-traumatic stress disorder) (Chronic) Surgical History Hx laparoscopic cholecystectomy (Resolved) Hx of tonsillectomy (Resolved) Family History Mother Dystonia 16 Parkinsons Father H/O colectomy Social History household members: family and children Smoking Status: Never smoker Exam Initial Vital Signs Initial Vital Signs: Vital Signs Temperature 98.1 F 10/10/18 14:52 Pulse Rate 102 H 10/10/18 14:52 Respiratory Rate 18 10/10/18 14:52 Blood Pressure 114/86 10/10/18 14:52 Pulse Oximetry 98 10/10/18 14:52 GENERAL: Well-appearing, well-nourished and in no acute distress. HEENT: Head atraumatic,EOMI, pupils reactive CARDIOVASCULAR: Regular rate and rhythm without murmurs, rubs or gallops. RESPIRATORY: Breath sounds equal bilaterally, no wheezes rales or rhonchi. ABDOMEN: Soft, nontender. Normoactive bowel sounds all 4 quadrants. No guarding or rebound. EXTREMITIES: Normal range of motion, no clubbing or edema. Neurovascularly intact NEUROLOGICAL: Alert and oriented x4.Normal gait and speech. Cranial nerves II through XII grossly intact. SKIN: Warm, dry, no laceration, no petechiae, no rashes or lesions. Course Orders Ordered: Discontinued Medications Pantoprazole Sodium (Protonix) 40 mg IV NOW ONE Stop: 10/10/18 15:49 Last Admin: 10/10/18 15:55 Dose: 40 mg Vital Signs - 8 hr 10/10/18 14:52 10/10/18 15:30 10/10/18 16:00 Temperature 98.1 F Pulse Rate 102 H 95 H 90 Respiratory Rate 18 18 12 Blood Pressure 114/86 Blood Pressure [Left Arm] 113/73 112/72 Pulse Oximetry 98 98 99 MDM - Chest Pain Medical Records Data Attestation: I reviewed the patient's medical records. Records from [facility] on 09/30/2018 Lab Data Attestation: I reviewed the patient's lab results. Result diagrams: 10/10/18 15:05 12/17/18 15:05 Lab Results 10/10/18 10/10/18 10/10/18 Range/Units 15:05 15:05 15:05 WBC 9.9 (4.5-11.0) X10^3/uL RBC 4.69 (4.0-5.2) X10^6/uL Hgb 12.7 (12.0-16.0) g/dL Hct 38.6 (36-46) % MCV 82.4 (80-100) fL MCH 27.0 (26-34) PG MCHC 32.8 (30-36) % RDW 19.6 H (11.6-14.8) % Plt Count 508 H (150-400) X10^3/uL Neut % (Auto) 63.5 (50-75) % Lymph % (Auto) 24.3 L (25-40) % [place] % (Auto) 8.9 (3-14) % Eos % (Auto) 2.6 (2-4) % Baso % (Auto) 0.7 (0-2) % Neut # (Auto) 6300 (0564-5648) /uL PT 11.9 (10.1-12.7) SECONDS INR 1.0 (0.9-1.3) APTT 30 (26.4-36.2) SECONDS Sodium 141 (137-145) mmol/L Potassium 3.2 L (3.4-5.1) mmol/L Chloride 104 (98-107) mmol/L Carbon Dioxide 26 (22-32) mmol/L BUN < 2 L (7-17) mg/dL Creatinine 0.50 L (0.52-1.04) mg/dL Estimated GFR > 60.0 (>60) mL/min BUN/Creatinine Ratio 4.0 L (6-22) Glucose 106 H (70-100) mg/dL Calcium 9.1 (8.4-10.2) mg/dL Total Bilirubin 0.2 (0.2-1.3) mg/dL AST 25 (14-36) IU/L ALT 11 (9-52) IU/L Alkaline Phosphatase 111 (38-126) U/L Total Creatine Kinase < 20 L (30-135) U/L CK-MB (CK-2) TNP CK-MB (CK-2) Rel Index TNP Troponin I < 0.012 (0.01-0.034) ng/mL Total Protein 6.8 (6.3-8.2) g/dL Albumin 3.4 L (3.5-5.0) g/dL Globulin 3.4 (1.7-4.1) g/dL Albumin/Globulin Ratio 1.0 (1.0-2.8) Lipase 60 (23-300) U/L Imaging Data Chest x-ray: Radiologist's impression: Patient: Zaina Yeboah MR#: [id number] : 1985 Acct:[id number] Age/Sex: 33 / F Date of Service: 10/10/18 Loc: ED Accession Number: [id number] Procedure: XR chest 1V Ordering Provider: Bridget Jay D.O. PROCEDURE: XR CHEST 1V INDICATIONS: chest pain TECHNIQUE: One view of the chest was acquired. COMPARISON: [facility], , XR CHEST 1V, 09/09/2018, 16:22. FINDINGS: Surgical changes and devices: None. Lungs and pleura: No pleural effusions or pneumothorax. Lungs are clear. Mediastinum: Mediastinal contours appear normal. Heart size is normal. Bones and chest wall: Dextrocurvature of the thoracolumbar spine IMPRESSION: No acute disease. Dictated by: Emmett Matute M.D. on 10/10/2018 at 16:13 ECG Data Attestation: I personally reviewed and interpreted this ECG as follows: Prior ECG tracings: available for review Interpretation: Normal sinus rhythm rate [address] changes or T-wave inversions IN interval 169 QRS 91 Discharge Plan Departure Patient Disposition: Home Clinical Impression: Atypical chest pain Discharge Date/Time: 10/10/18 17:10 Interventions: ED Discharge Assessment Last Done: 10/10/18 17:03 Instructions: DI for Atypical Chest Pain Activity Restrictions/Additional Instructions: *You have been diagnosed with atypical chest pain *What to do: At this time blood work and chest x-ray are reassuring EKG also reassuring follow-up with Cardiology *Continue to take medications as directed *Follow up with your primary care provider in 2-3 days *Return to ER if you should have increasing pain, shortness of breath, palpitations or any new, worsening or concerning symptoms Prescriptions: No Action sulfasalazine 500 mg Tablet 1,000 mg PO BID Qty: 180 RF: 0 cetirizine 10 mg tablet 10 mg PO DAILY RF: 0 acetaminophen [Mapap Arthritis Pain] 650 mg tablet extended release 650 mg PO Q8H PRN (Reason: pain) RF: 0 metoprolol tartrate 25 mg tablet 25 mg PO BID RF: 0 mesalamine [Pentasa] 500 mg capsule, extended release 1,000 mg PO TID RF: 0 pregabalin [Lyrica] 225 mg capsule 225 mg PO BID RF: 0 amitriptyline 75 mg Tablet 75 mg PO BEDTIME RF: 0 promethazine [Phenadoz] 25 mg Suppository 25 mg IN Q4H PRN (Reason: Nausea And Vomiting) RF: 0 prochlorperazine maleate 10 mg tablet 10 mg PO Q8H PRN (Reason: Headache) RF: 0 diphenhydramine HCl 25 mg Capsule 25 - 50 mg PO BID PRN (Reason: Headache) RF: 0 ergocalciferol (vitamin D2) [Vitamin D2] 50,000 unit Capsule 50,000 units PO QWEEK RF: 0 albuterol sulfate [ProAir HFA] 90 mcg/actuation HFA aerosol inhaler 2 puff Inhalation Q4H PRN (Reason: Wheezing) RF: 0 albuterol sulfate 5 mg/mL Solution For Nebulization 2.5 mg Inhalation Q8H PRN (Reason: Shortness Of Breath) RF: 0 topiramate [Topamax] 50 mg Tablet 50 mg PO BID RF: 0 Lactobac #2-Bifido #1-S. therm 112.5 billion cell Capsule 8 cap PO DAILY RF: 0 budesonide-formoterol [Symbicort] 160-4.5 mcg/actuation Hfa Aerosol Inhaler 2 puff INHALATION BID RF: 0 hydrocodone-acetaminophen 10-325 mg tablet 1 tab PO Q6H PRN (Reason: Pain, Moderate (4-6)) RF: 0 tramadol 50 mg tablet 50 mg PO BID RF: 0 Referrals: Valentina Hess MD [Primary Care Provider] -
[2018-10-10 15:50] LABS: Add Manual Diff / Slide Review NO; Basophils Percent Auto 0.7 % (0-2); Eosinophils Percent Auto 2.6 % (2-4); Hematocrit 38.6 % (36-46); Hemoglobin 12.7 g/dL (12.0-16.0); Lymphocytes Percent Auto 24.3 % (25-40); Mean Corpuscular HGB Conc 32.8 % (30-36); Mean Corpuscular Volume 82.4 fL (80-100); Monocytes Percent Auto 8.9 % (3-14); Neutrophils Absolute Auto 6300 /uL (1500-7000); Neutrophils Percent Auto 63.5 % (50-75); Platelet Count 508 X10^3/uL (150-400); Red Blood Cell Count 4.69 X10^6/uL (4.0-5.2); Red Cell Distribution Width 19.6 % (11.6-14.8); White Blood Cell Count 9.9 X10^3/uL (4.5-11.0)
[2018-10-10 15:52] LABS: Prothrombin Time 11.9 SECONDS (10.1-12.7)
[2018-10-10 15:54] LABS: PTT Partial Thromboplastin Tim 30 SECONDS (26.4-36.2)
[2018-10-10] MEDS: PANTOPRAZOLE 40 MG VIAL IV (15:55)
[2018-10-10 15:57] LABS: Alanine Aminotransferase 11 IU/L (9-52); Albumin 3.4 g/dL (3.5-5.0); Alkaline Phosphatase 111 U/L (38-126); Aspartate Aminotransferase 25 IU/L (14-36); Bilirubin Total 0.2 mg/dL (0.2-1.3); Blood Urea Nitrogen < 2 mg/dL (7-17); Calcium 9.1 mg/dL (8.4-10.2); Carbon Dioxide 26 mmol/L (22-32); Chloride 104 mmol/L (98-107); Creatine Kinase < 20 U/L (30-135); Estimated Glomerular Filt Rate > 60.0 mL/min (>60); Globulin 3.4 g/dL (1.7-4.1); Glucose 106 mg/dL (70-100); HEMOLYSIS < 15 (0-50); Lipase 60 U/L (23-300); Potassium 3.2 mmol/L (3.4-5.1); Sodium 141 mmol/L (137-145); Total Protein 6.8 g/dL (6.3-8.2)
[2018-10-10 16:00] VITALS: BP 112/72; PULSE 90; RESP 12; O2SAT 99
[2018-10-10 16:08] LABS: Troponin I < 0.012 ng/mL (0.01-0.034)
--- NOTE | 2018-10-10 16:40 | ED_ITS ---
HPI - Chest Pain General Chief Complaint: Chest Pain Stated Complaint: states sharp chest pain since 11am. Time Seen by Provider: 10/10/18 15:38 Source: patient Mode of arrival: ambulatory Limitations: no limitations History of Present Illness HPI narrative: Patient is a 33-year-old female who presents with left-sided chest pain. She does have a history of palpitations and tachycardia she says it was not like this. She felt it was sharp stabbing nonradiating lasted for about an hour now resolving now that she is in the ED. She denies any nausea or shortness of breath. MD complaint: chest pain Onset (ago): hour(s) Duration: improved Onset: during rest Pain location: left chest Severity: moderate Relieving factors: nothing Related Data Home Medications Medication Instructions Recorded Confirmed Lactobac #2-Bifido #1-S. therm 8 cap PO DAILY 10/10/18 10/10/18 acetaminophen [Mapap Arthritis 650 mg PO Q8H PRN 10/10/18 10/10/18 Pain] albuterol sulfate 2.5 mg INHALATION Q8H PRN 10/10/18 10/10/18 albuterol sulfate [ProAir HFA] 2 puff INHALATION Q4H PRN 10/10/18 10/10/18 amitriptyline 75 mg PO BEDTIME 10/10/18 10/10/18 budesonide-formoterol [Symbicort] 2 puff INHALATION BID 10/10/18 10/10/18 cetirizine 10 mg PO DAILY 10/10/18 10/10/18 diphenhydramine HCl 25 - 50 mg PO BID PRN 10/10/18 10/10/18 ergocalciferol (vitamin D2) 50,000 units PO QWEEK 10/10/18 10/10/18 [Vitamin D2] hydrocodone-acetaminophen 1 tab PO Q6H PRN 10/10/18 10/10/18 mesalamine [Pentasa] 1,000 mg PO TID 10/10/18 10/10/18 metoprolol tartrate 25 mg PO BID 10/10/18 10/10/18 pregabalin [Lyrica] 225 mg PO BID 10/10/18 10/10/18 prochlorperazine maleate 10 mg PO Q8H PRN 10/10/18 10/10/18 promethazine [Phenadoz] 25 mg NH Q4H PRN 10/10/18 10/10/18 topiramate [Topamax] 50 mg PO BID 10/10/18 10/10/18 tramadol 50 mg PO BID 10/10/18 10/10/18 Previous Rx's Medication Instructions Recorded sulfasalazine 1,000 mg PO BID #180 tab 09/19/18 Allergies Allergy/AdvReac Type Severity Reaction Status Date / Time cephalexin [From KEFLEX] Allergy Severe Anaphylaxis Verified 10/10/18 15:02 ibuprofen [IBUPROFEN] Allergy Severe severe Verified 10/10/18 15:02 headaches vancomycin [VANCOMYCIN] Allergy Severe martha Verified 10/10/18 15:02 fluoxetine [From PROZAC] Allergy Unknown Verified 10/10/18 15:02 Sulfa (Sulfonamide AdvReac Mild CONSTIPATIO Verified 10/10/18 15:02 Antibiotics) N [SULFA (SULFONAMIDE ANTIBIOTICS)] aspirin [ASPIRIN] AdvReac Unknown SINCE Verified 10/10/18 15:02 CHILDHOOD UNKNOWN Quinolones AdvReac Unknown tachycardia Verified 10/10/18 15:02 NSAIDS (Non-Steroidal AdvReac Gastrointestinal Verified 10/10/18 15:02 Anti-Inflamma Upset Review of Systems Review of Systems GENERAL: Denies chills, fatigue, malaise, fever, sweats, travel HEENT: Denies sinus pain, ear pain, sore throat, difficulty swallowing, neck pain RESPIRATORY: Denies dyspnea, cough, wheezing, hemoptysis, sputum. CARDIOVASCULAR: See HPI GASTROINTESTINAL: Denies nausea, vomiting, abdominal pain, diarrhea, constipation, melena. : Denies dysuria, frequency, incontinence, hematuria, urinary retention, flank pain. MUSCULOSKELETAL: Denies weakness, joint pain, or bony pain SKIN: No rash, no erythema, no pruritus NEUROLOGIC: Denies weakness, dizziness, headache, numbness, change in speech, confusion PSYCHIATRIC: No concerning psychosocial issues. 12 point review of systems is negative except for those stated above and HPI [facility] Medical History Heart palpitations (Acute) Idiopathic intracranial hypertension (Acute) Migraine (Acute) Asthma (Chronic) Chronic knee pain (Chronic) Chronic shoulder pain (Chronic) Epilepsia (Chronic) IBS (irritable bowel syndrome) (Chronic) Incisional hernia (Chronic) PTSD (post-traumatic stress disorder) (Chronic) Surgical History Hx laparoscopic cholecystectomy (Resolved) Hx of tonsillectomy (Resolved) Family History Mother Dystonia 16 Parkinsons Father H/O colectomy Social History household members: family and children Smoking Status: Never smoker Exam Initial Vital Signs Initial Vital Signs: Vital Signs Temperature 98.1 F 10/10/18 14:52 Pulse Rate 102 H 10/10/18 14:52 Respiratory Rate 18 10/10/18 14:52 Blood Pressure 114/86 10/10/18 14:52 Pulse Oximetry 98 10/10/18 14:52 GENERAL: Well-appearing, well-nourished and in no acute distress. HEENT: Head atraumatic,EOMI, pupils reactive CARDIOVASCULAR: Regular rate and rhythm without murmurs, rubs or gallops. RESPIRATORY: Breath sounds equal bilaterally, no wheezes rales or rhonchi. ABDOMEN: Soft, nontender. Normoactive bowel sounds all 4 quadrants. No guarding or rebound. EXTREMITIES: Normal range of motion, no clubbing or edema. Neurovascularly intact NEUROLOGICAL: Alert and oriented x4.Normal gait and speech. Cranial nerves II through XII grossly intact. SKIN: Warm, dry, no laceration, no petechiae, no rashes or lesions. Course Orders Ordered: Discontinued Medications Pantoprazole Sodium (Protonix) 40 mg IV NOW ONE Stop: 10/10/18 15:49 Last Admin: 10/10/18 15:55 Dose: 40 mg Vital Signs - 8 hr 10/10/18 14:52 10/10/18 15:30 10/10/18 16:00 Temperature 98.1 F Pulse Rate 102 H 95 H 90 Respiratory Rate 18 18 12 Blood Pressure 114/86 Blood Pressure [Left Arm] 113/73 112/72 Pulse Oximetry 98 98 99 MDM - Chest Pain Medical Records Data Attestation: I reviewed the patient's medical records. Records from [facility] on 09/30/2018 Lab Data Attestation: I reviewed the patient's lab results. Result diagrams: 10/10/18 15:05 12/17/18 15:05 Lab Results 10/10/18 10/10/18 10/10/18 Range/Units 15:05 15:05 15:05 WBC 9.9 (4.5-11.0) X10^3/uL RBC 4.69 (4.0-5.2) X10^6/uL Hgb 12.7 (12.0-16.0) g/dL Hct 38.6 (36-46) % MCV 82.4 (80-100) fL MCH 27.0 (26-34) PG MCHC 32.8 (30-36) % RDW 19.6 H (11.6-14.8) % Plt Count 508 H (150-400) X10^3/uL Neut % (Auto) 63.5 (50-75) % Lymph % (Auto) 24.3 L (25-40) % [place] % (Auto) 8.9 (3-14) % Eos % (Auto) 2.6 (2-4) % Baso % (Auto) 0.7 (0-2) % Neut # (Auto) 6300 (3360-8230) /uL PT 11.9 (10.1-12.7) SECONDS INR 1.0 (0.9-1.3) APTT 30 (26.4-36.2) SECONDS Sodium 141 (137-145) mmol/L Potassium 3.2 L (3.4-5.1) mmol/L Chloride 104 (98-107) mmol/L Carbon Dioxide 26 (22-32) mmol/L BUN < 2 L (7-17) mg/dL Creatinine 0.50 L (0.52-1.04) mg/dL Estimated GFR > 60.0 (>60) mL/min BUN/Creatinine Ratio 4.0 L (6-22) Glucose 106 H (70-100) mg/dL Calcium 9.1 (8.4-10.2) mg/dL Total Bilirubin 0.2 (0.2-1.3) mg/dL AST 25 (14-36) IU/L ALT 11 (9-52) IU/L Alkaline Phosphatase 111 (38-126) U/L Total Creatine Kinase < 20 L (30-135) U/L CK-MB (CK-2) TNP CK-MB (CK-2) Rel Index TNP Troponin I < 0.012 (0.01-0.034) ng/mL Total Protein 6.8 (6.3-8.2) g/dL Albumin 3.4 L (3.5-5.0) g/dL Globulin 3.4 (1.7-4.1) g/dL Albumin/Globulin Ratio 1.0 (1.0-2.8) Lipase 60 (23-300) U/L Imaging Data Chest x-ray: Radiologist's impression: Patient: Zaina Yeboah MR#: [id number] : 1985 Acct:[id number] Age/Sex: 33 / F Date of Service: 10/10/18 Loc: ED Accession Number: [id number] Procedure: XR chest 1V Ordering Provider: Bridget Jay D.O. PROCEDURE: XR CHEST 1V INDICATIONS: chest pain TECHNIQUE: One view of the chest was acquired. COMPARISON: [facility], , XR CHEST 1V, 09/09/2018, 16:22. FINDINGS: Surgical changes and devices: None. Lungs and pleura: No pleural effusions or pneumothorax. Lungs are clear. Mediastinum: Mediastinal contours appear normal. Heart size is normal. Bones and chest wall: Dextrocurvature of the thoracolumbar spine IMPRESSION: No acute disease. Dictated by: Emmett Matute M.D. on 10/10/2018 at 16:13 ECG Data Attestation: I personally reviewed and interpreted this ECG as follows: Prior ECG tracings: available for review Interpretation: Normal sinus rhythm rate [address] changes or T-wave inversions NH interval 169 QRS 91 Discharge Plan Departure Patient Disposition: Home Clinical Impression: Atypical chest pain Discharge Date/Time: 10/10/18 17:10 Interventions: ED Discharge Assessment Last Done: 10/10/18 17:03 Instructions: DI for Atypical Chest Pain Activity Restrictions/Additional Instructions: *You have been diagnosed with atypical chest pain *What to do: At this time blood work and chest x-ray are reassuring EKG also reassuring follow-up with Cardiology *Continue to take medications as directed *Follow up with your primary care provider in 2-3 days *Return to ER if you should have increasing pain, shortness of breath, palpitations or any new, worsening or concerning symptoms Prescriptions: No Action sulfasalazine 500 mg Tablet 1,000 mg PO BID Qty: 180 RF: 0 cetirizine 10 mg tablet 10 mg PO DAILY RF: 0 acetaminophen [Mapap Arthritis Pain] 650 mg tablet extended release 650 mg PO Q8H PRN (Reason: pain) RF: 0 metoprolol tartrate 25 mg tablet 25 mg PO BID RF: 0 mesalamine [Pentasa] 500 mg capsule, extended release 1,000 mg PO TID RF: 0 pregabalin [Lyrica] 225 mg capsule 225 mg PO BID RF: 0 amitriptyline 75 mg Tablet 75 mg PO BEDTIME RF: 0 promethazine [Phenadoz] 25 mg Suppository 25 mg NH Q4H PRN (Reason: Nausea And Vomiting) RF: 0 prochlorperazine maleate 10 mg tablet 10 mg PO Q8H PRN (Reason: Headache) RF: 0 diphenhydramine HCl 25 mg Capsule 25 - 50 mg PO BID PRN (Reason: Headache) RF: 0 ergocalciferol (vitamin D2) [Vitamin D2] 50,000 unit Capsule 50,000 units PO QWEEK RF: 0 albuterol sulfate [ProAir HFA] 90 mcg/actuation HFA aerosol inhaler 2 puff Inhalation Q4H PRN (Reason: Wheezing) RF: 0 albuterol sulfate 5 mg/mL Solution For Nebulization 2.5 mg Inhalation Q8H PRN (Reason: Shortness Of Breath) RF: 0 topiramate [Topamax] 50 mg Tablet 50 mg PO BID RF: 0 Lactobac #2-Bifido #1-S. therm 112.5 billion cell Capsule 8 cap PO DAILY RF: 0 budesonide-formoterol [Symbicort] 160-4.5 mcg/actuation Hfa Aerosol Inhaler 2 puff INHALATION BID RF: 0 hydrocodone-acetaminophen 10-325 mg tablet 1 tab PO Q6H PRN (Reason: Pain, Moderate (4-6)) RF: 0 tramadol 50 mg tablet 50 mg PO BID RF: 0 Referrals: Valentina Hess MD [Primary Care Provider] -
[2018-10-10 17:03] VITALS: BP 112/70; PULSE 97; RESP 16; O2SAT 99
== END 2018-10-10 17:10 | disposition home or self-care (01) ==
PROVIDERS: Emergency Provider Emergency Medicine; PCP Psychiatry & Neurology Neurology
DX: R07.89 Other chest pain (principal)
CPT/HCPCS: 36591; 71045; 80053; 82550; 83690; 84484; 85025; 85610; 85730; 93005; 96374; 99283; 99285; C9113

== ENCOUNTER → 2019-03-22 15:26 | Outpatient (CLI) | payer OTHER, MEDICAID, SELFPAY ==
[2018-09-09 22:45] VITALS: BMI 28.1
[2019-03-22 16:06] LABS: Add Manual Diff / Slide Review NO; Basophils Absolute Auto 100 /uL (0-100); Basophils Percent Auto 0.7 % (0-2); Eosinophils Absolute Auto 300 /uL (0-450); Eosinophils Percent Auto 2.7 % (2-4); Hematocrit 38.7 % (36-46); Hemoglobin 12.6 g/dL (12.0-16.0); Lymphocytes Absolute Auto 2200 /uL (1100-4500); Lymphocytes Percent Auto 23.4 % (25-40); Mean Corpuscular HGB Conc 32.5 % (30-36); Mean Corpuscular Hemoglobin 25.2 PG (26-34); Mean Corpuscular Volume 77.4 fL (80-100); Monocytes Absolute Auto 700 /uL (0-900); Monocytes Percent Auto 7.3 % (3-14); Neutrophils Absolute Auto 6200 /uL (1500-7000); Neutrophils Percent Auto 65.9 % (50-75); Platelet Count 460 X10^3/uL (150-400); Red Cell Distribution Width 14.4 % (11.6-14.8); White Blood Cell Count 9.4 X10^3/uL (4.5-11.0)
[2019-03-22 16:27] LABS: Albumin 3.9 g/dL (3.5-5.0); Albumin Globulin Ratio 1.1 (1.0-2.8); Alkaline Phosphatase 107 U/L (38-126); Aspartate Aminotransferase 15 IU/L (14-36); BUN Creatinine Ratio 11.7 (6-22); Bilirubin Total 0.4 mg/dL (0.2-1.3); Blood Urea Nitrogen 7 mg/dL (7-17); Calcium 9.9 mg/dL (8.4-10.2); Carbon Dioxide 24 mmol/L (22-32); Chloride 104 mmol/L (98-107); Cholesterol 156 mg/dL (140-199); Estimated Glomerular Filt Rate > 60.0 mL/min (>60); Globulin 3.5 g/dL (1.7-4.1); Glucose 98 mg/dL (70-100); HDL Cholesterol 43 mg/dL (40-60); HEMOLYSIS < 15 (0-50); LDL Cholesterol Calculated 86 mg/dL (<100); Magnesium 1.9 mg/dL (1.6-2.3); Potassium 4.2 mmol/L (3.4-5.1); Sodium 139 mmol/L (137-145); Total Protein 7.4 g/dL (6.3-8.2); Triglycerides 135 mg/dL (35-150)
[2019-03-22 16:57] LABS: Thyroid Stimulating Hormone 3.69 uIU/mL (0.47-4.68)
[2019-03-22 17:18] LABS: Alanine Aminotransferase 11 IU/L (9-52)
== END ==
PROVIDERS: PCP Psychiatry & Neurology Neurology; Visit Provider Internal Medicine Cardiovascular Disease
DX: R00.2 Palpitations (principal); R07.89 Other chest pain; R00.0 Tachycardia, unspecified
CPT/HCPCS: 36415; 80053; 80061; 83735; 84443; 85025

== ENCOUNTER 2019-12-13 11:36 | Emergency (ER) | payer OTHER, MEDICAID, SELFPAY ==
[2018-09-09 22:45] VITALS: BMI 28.1
[2019-12-13 11:52] VITALS: BP 125/69; PULSE 108; RESP 18; O2SAT 99; BMI 24.0
--- NOTE | 2019-12-13 12:02 | DI.CT.S_ITS ---
PROCEDURE: CT ABDOMEN PELVIS W CON INDICATIONS: abdominal pain, diarrhea, crohns flare up for 1 mon TECHNIQUE: After the administration of intravenous contrast, 5 mm thick sections acquired from the diaphragm to the symphysis. 5 mm coronal and sagittal reformats were acquired. For radiation dose reduction, the following was used: automated exposure control, adjustment of mA and/or kV according to patient size. COMPARISON: [facility], MR, MR LUMBAR SPINE WITHOUT CONTRAST, 06/12/2019, 16:39. [facility], CT, CT ABDOMEN PELVIS W CON, 09/15/2018, 11:23. FINDINGS: Image quality: Excellent. ABDOMEN: Lung bases: Mild atelectasis in the right lung. No pleural effusion. Heart size is normal. Solid organs: Liver is normal in size and enhancement. Gallbladder is absent. Biliary system is non dilated. Pancreas enhances normally. Spleen is normal in size and enhancement. Small splenule. No adrenal nodules. Kidneys demonstrate normal size and enhancement, without hydronephrosis. Left kidney is lower pole cortical cyst measuring 8 mm and 53 Hounsfield units, (2/34), previously 5 mm. Left mid kidney cortical cyst measuring 1.5 cm is unchanged and appears simple. Additional subcentimeter cortical hypodensities which are too small to further characterize. Peritoneum and bowel: There is mild increased enhancement and thickening along the proximal transverse colon, (3/21). There is engorgement of the adjacent mesenteric vessels and small pericolonic lymph nodes. This loop of bowel is mildly narrowed but there is no upstream dilatation. There is lipomatous hypertrophy of the fat at the ileocecal valve. The appendix is normal in caliber. No small bowel obstruction. Nodes and vessels: No retroperitoneal or mesenteric adenopathy by size criteria. Small mesorectal and pelvic sidewall lymph nodes are again seen. Aorta and inferior vena cava are normal in size. Miscellaneous: No ventral hernias. PELVIS: Genitourinary: Bladder is decompressed. Uterus is vertically oriented. Miscellaneous: No inguinal hernias or adenopathy. Bones: No suspicious bony lesions. Mild sclerosis at the SI joints, (2/52), more conspicuous. No vertebral body compression fractures. IMPRESSION: 1. Mild thickening and enhancement of the colonic wall at the hepatic flexure. Minimal mesenteric edema and fat stranding. This could be acute on chronic inflammatory change in the proper clinical setting. -Consider MR enterography for further characterization. 2. No free fluid, abscess, OR pneumoperitoneum. 3. Sclerosis at the SI joints may be due to sacroiliitis. 4. Small indeterminate left renal cyst. This is most likely a simple cyst given the presence of additional simple cysts but is incompletely characterized on this exam. The expected T2 hyperintensity on prior lumbar MRI is not appreciated. This also be evaluated on MRI for marked T2 hyperintensity. Renal ultrasound could also be considered for further evaluation. Dictated by: Brian Montoya M.D. on 12/13/2019 at 13:42 Approved by: Brian Montoya M.D. on 12/13/2019 at 14:01
[2019-12-13] MEDS: ONDANSETRON 4 MG/2 ML INJ IV (12:26)
[2019-12-13] MEDS: SODIUM CHLORIDE 0.9% 1,000 ML 150 ML IV (12:27)
[2019-12-13 12:28] LABS: Add Manual Diff / Slide Review NO; Basophils Absolute Auto 100 /uL (0-100); Basophils Percent Auto 0.6 % (0-2); Eosinophils Absolute Auto 200 /uL (0-450); Eosinophils Percent Auto 1.4 % (2-4); Hematocrit 37.6 % (36-46); Hemoglobin 12.5 g/dL (12.0-16.0); Lymphocytes Absolute Auto 3400 /uL (1100-4500); Lymphocytes Percent Auto 28.7 % (25-40); Mean Corpuscular HGB Conc 33.3 % (30-36); Mean Corpuscular Hemoglobin 26.5 PG (26-34); Mean Corpuscular Volume 79.5 fL (80-100); Monocytes Absolute Auto 900 /uL (0-900); Monocytes Percent Auto 7.6 % (3-14); Neutrophils Absolute Auto 7300 /uL (1500-7000); Neutrophils Percent Auto 61.7 % (50-75); Platelet Count 481 X10^3/uL (150-400); Red Blood Cell Count 4.73 X10^6/uL (4.0-5.2); Red Cell Distribution Width 14.6 % (11.6-14.8); White Blood Cell Count 11.8 X10^3/uL (4.5-11.0)
[2019-12-13 12:38] LABS: Alanine Aminotransferase 11 IU/L (<35); Albumin 3.8 g/dL (3.5-5.0); Alkaline Phosphatase 106 U/L (38-126); Aspartate Aminotransferase 21 IU/L (14-36); Bilirubin Total 0.3 mg/dL (0.2-1.3); Blood Urea Nitrogen 6 mg/dL (7-17); Calcium 9.8 mg/dL (8.4-10.2); Carbon Dioxide 24 mmol/L (22-32); Chloride 103 mmol/L (98-107); Estimated Glomerular Filt Rate > 60.0 mL/min (>60); Globulin 3.7 g/dL (1.7-4.1); Glucose 108 mg/dL (70-100); HEMOLYSIS < 15 (0-50); Lactate (Lactic Acid) 1.6 mmol/L (0.7-2.1); Lipase 26 U/L (23-300); Potassium 3.5 mmol/L (3.4-5.1); Sodium 137 mmol/L (137-145); Total Protein 7.5 g/dL (6.3-8.2)
[2019-12-13 13:10] LABS: Appearance Urine UA CLEAR; Bilirubin Urine UA NEGATIVE (NEGATIVE); Color Urine UA YELLOW; Glucose Urine UA NEGATIVE (Negative); Ketones Urine UA TRACE (NEGATIVE); Leukocyte Esterase Urine UA 1+ (NEGATIVE); Nitrite Urine UA NEGATIVE (Negative); Occult Blood Urine UA TRACE-LYSED (Negative); Pregnancy Test Urine Negative (Negative); Protein Urine UA TRACE (Negative); Specific Gravity Urine UA 1.025 (1.000-1.035); Urobilinogen Urine UA 0.2 E.U./dL (0.2)
--- NOTE | 2019-12-13 13:12 | ED.ABDPAIN ---
HPI - Abdominal Pain <JOLENE Ortiz - Last Filed: 12/13/19 16:19> General Chief Complaint: Weakness Stated Complaint: dizzy,upset stomach,weakness,high white count Time Seen by Provider: 12/13/19 11:46 Source: patient Mode of arrival: Family Vehicle Limitations: no limitations History of Present Illness HPI narrative: This is a 34-year-old female, nonsmoker, who presents to ED with chief complaint of Crohn's flare up for last a month. Patient reports she has been having frequent loose stool for about a month with even loose stool incontinence during sleep which has been improving at this time with antibiotic medication. Patient states she has bowel movement once a day at this time. Patient denies fever, chills, nausea or vomiting. Patient denies hematochezia, melena. Patient reports abdominal discomfort with palpation only. She was dehydrated from this and was treated at [facility] in ED for 2 occasions with IV hydration on December 01 and . She was discharged to home with antibiotic medications after receiving Rocephin 1Gm IV and dexamethasone. She also was diagnosed with UTI and started on Levaquin on December 08 for a week dose. Patient denies any urinary symptoms such as frequency, urgency, dysuria or flank pain. Patient reports she has been taking Pentasa 200 mg t.i.d. dose for Crohn's disease. Patient reports with antibiotic medications that she felt better but after the completion, her symptoms recurred. Patient was seen at GI specialist [facility] clinic yesterday and was told to come in to ED for an re-evaluation due to high white count and possible imaging test. According to medical record, patient has on intentional weight loss from 169 lb in September to 144 lb recently. She reports decreased p.o. intake of solid foods due to it straight through me...upset stomach and getting weak. Patient reports she has and us copy and colonoscopy scheduled for next month. Related Data Home Medications Medication Instructions Recorded Confirmed albuterol sulfate [ProAir HFA] 2 puff INHALATION Q4H PRN 10/10/18 12/13/19 budesonide-formoterol [Symbicort] 2 puff INHALATION BID 10/10/18 12/13/19 cetirizine 10 mg PO DAILY 10/10/18 12/13/19 diphenhydramine HCl 25 - 50 mg PO BID PRN 10/10/18 12/13/19 ergocalciferol (vitamin D2) 50,000 units PO QWEEK 10/10/18 12/13/19 [Vitamin D2] hydrocodone-acetaminophen 1 tab PO Q6H PRN 10/10/18 12/13/19 mesalamine [Pentasa] 1,000 mg PO TID 10/10/18 12/13/19 prochlorperazine maleate 10 mg PO Q8H PRN 10/10/18 12/13/19 topiramate [Topamax] 50 mg PO BID 10/10/18 12/13/19 Allergies Allergy/AdvReac Type Severity Reaction Status Date / Time cephalexin [From KEFLEX] Allergy Severe Anaphylaxis Verified 12/13/19 11:52 ibuprofen [IBUPROFEN] Allergy Severe severe Verified 12/13/19 11:52 headaches vancomycin [VANCOMYCIN] Allergy Severe martha Verified 12/13/19 11:52 fluoxetine [From PROZAC] Allergy Unknown Verified 12/13/19 11:52 Sulfa (Sulfonamide AdvReac Mild CONSTIPATIO Verified 12/13/19 11:52 Antibiotics) N [SULFA (SULFONAMIDE ANTIBIOTICS)] aspirin [ASPIRIN] AdvReac Unknown SINCE Verified 12/13/19 11:52 CHILDHOOD UNKNOWN Quinolones AdvReac Unknown tachycardia Verified 12/13/19 11:52 NSAIDS (Non-Steroidal AdvReac Gastrointestinal Verified 12/13/19 11:52 Anti-Inflamma Upset Review of Systems <Renard Teresita [facility] - Last Filed: 12/13/19 16:19> Review of Systems Narrative: General: Denies fever, chills, fatigue, malaise, sweats. HEENT: Denies sinus pain, ear pain, sore throat, difficulty swallowing, dizziness. Respiratory: Denies dyspnea, cough, wheezing, hemoptysis, sputum. Cardiovascular: Denies chest pain, palpitations, orthopnea, edema. Gastrointestinal: See HPI : Denies dysuria, frequency, incontinence, hematuria, urinary retention. Musculoskeletal: Denies (+) leg weakness, joint pain or bony pain. Skin: Denies rash, skin lesions, or other. Neurologic: Denies weakness, headache, numbness, change in speech, confusion, seizures, incoordination. Psychiatric: No concerning psychosocial issues. 12-point review of systems is negative except for those stated above. Patient History <JOLENE Ortiz - Last Filed: 12/13/19 16:19> Social History household members: family and children Smoking Status: Never smoker Smoking Status: Never smoker alcohol intake frequency: 0-2 drinks per day Substance Use Type: does not use Exam <JOLENE Ortiz - Last Filed: 12/13/19 16:19> Narrative Exam Narrative: GEN: Alert, oriented x 3, well appearing and nourished, and in no acute distress. Head: Normal cephalic, atraumatic. No scalp or temporal tenderness, palpable mass or rash. EYES: Pupils are equal, round, and reactive to light and accommodation. Extraocular muscles are intact bilaterally. There is no subconjunctival hemorrhage, exudate and sclera non-icteric. ENT: Bilateral auditory canals and tympanic membranes clear. Hearing grossly intact. Nose without bleeding, purulent discharge or deviation. Facial sinuses nontender to palpate. Mucous membrane moist, no mucosal lesion. Throat without erythema, tonsillar hypertrophy or exudate. Uvula in midline, airway patent. Neck: Trachea in midline. No JVD, tender in left anterior cervical lymphnode and mild swelling. No masses or thyroid megaly. Supple, non-tender and no meningeal signs. CARDIAC: Normal regular rate and rhythm without murmurs, gallops, or rubs. No chest wall tenderness. No peripheral edema, cyanosis or pallor. Capillary refill is less than 2 seconds. RESPIRATORY: Lungs are clear to auscultate bilaterally. No cough, wheezes, rales, or rhonchi. No stridor, respiratory distress, increase work of breathing, or accessary muscle used. ABD: Abdomen soft, TTP in RUQ, periumbelicus and LLQ without distended. No guarding or rebound tenderness to palpate. Bowel sounds are normal in all 4 quadrants. There is no palpable masses or organomegaly. EXT: Full painless ROM of all extremities with no loss of sensation, effusion or edema. SKIN: Warm, dry, normal color for patient. No erythema, lesions or rash over visible areas. BACK: Nontender without deformity or crepitance. No flank tenderness. NEUROLOGICAL: Alert and oriented to place, time and person. Sensation and motor function intact bilaterally. No facial droops, dysphasia. PSYCHIATRIC: Good judgement and reason, without hallucinations, abnormal affect or abnormal behaviors during the examination. Patient is not suicidal. Initial Vital Signs Initial Vital Signs: Vital Signs Pulse Rate 108 H 12/13/19 11:52 Respiratory Rate 18 12/13/19 11:52 Blood Pressure 125/69 12/13/19 11:52 Pulse Oximetry 99 12/13/19 11:52 <Parag Ferris DO - Last Filed: 12/13/19 16:30> Initial Vital Signs Initial Vital Signs: Vital Signs Pulse Rate 108 H 12/13/19 11:52 Respiratory Rate 18 12/13/19 11:52 Blood Pressure 125/69 12/13/19 11:52 Pulse Oximetry 99 12/13/19 11:52 Scores <JOLENE Ortiz - Last Filed: 12/13/19 16:19> GCS [place] coma scale eye opening: Spontaneous [place] coma scale verbal response: Orientated [place] coma scale motor response: Obey commands [place] coma scale total score: 15 Course <JOLENE Ortiz - Last Filed: 12/13/19 16:19> Orders Ordered: ED Orders 12/13/19 12:02 CT abdomen pelvis w con Stat 12/13/19 12:18 Complete Blood Count AUTO DIFF Stat Comprehensive Metabolic Panel Stat Lactate (Lactic Acid) Stat Lipase Stat Procalcitonin Stat 12/13/19 12:55 Test Urine Stat UA Complete [Urinalysis and Microscopic] Stat Urine Culture Stat Discontinued Medications Sodium Chloride (Normal Saline 0.9%) 1,000 mls @ 150 mls/hr IV CONT MARISSA Last Infusion: 12/13/19 15:05 Dose: 0 mls/hr Documented by: Infusion: 12/13/19 14:04 Dose: 500 mls/hr Documented by: Admin: 12/13/19 12:27 Dose: 150 mls/hr Documented by: BTONER Ondansetron HCl (Zofran) 4 mg IV NOW ONE Stop: 12/13/19 12:00 Last Admin: 12/13/19 12:26 Dose: 4 mg Documented by: BTONER Potassium Chloride (Klor-Con M20) 20 meq PO NOW ONE Stop: 12/13/19 14:04 Last Admin: 12/13/19 14:08 Dose: 20 meq Documented by: CHARI Vital Signs Vital signs: Vital Signs - 8 hr 12/13/19 11:52 12/13/19 13:59 12/13/19 14:55 Pulse Rate 91 H 88 Pulse Rate [Right Radial] 108 H Respiratory Rate 18 15 16 Blood Pressure [Right Arm] 125/69 96/55 L 100/70 Pulse Oximetry 99 96 99 <Parag Ferris DO - Last Filed: 12/13/19 16:30> Orders Ordered: ED Orders 12/13/19 12:02 CT abdomen pelvis w con Stat 12/13/19 12:18 Complete Blood Count AUTO DIFF Stat Comprehensive Metabolic Panel Stat Lactate (Lactic Acid) Stat Lipase Stat Procalcitonin Stat 12/13/19 12:55 Test Urine Stat UA Complete [Urinalysis and Microscopic] Stat Urine Culture Stat Discontinued Medications Sodium Chloride (Normal Saline 0.9%) 1,000 mls @ 150 mls/hr IV CONT MARISSA Last Infusion: 12/13/19 15:05 Dose: 0 mls/hr Documented by: Infusion: 12/13/19 14:04 Dose: 500 mls/hr Documented by: Admin: 12/13/19 12:27 Dose: 150 mls/hr Documented by: SALVATORE Ondansetron HCl (Zofran) 4 mg IV NOW ONE Stop: 12/13/19 12:00 Last Admin: 12/13/19 12:26 Dose: 4 mg Documented by: BTONER Potassium Chloride (Klor-Con M20) 20 meq PO NOW ONE Stop: 12/13/19 14:04 Last Admin: 12/13/19 14:08 Dose: 20 meq Documented by: CHARI Vital Signs Vital signs: Vital Signs - 8 hr 12/13/19 11:52 12/13/19 13:59 12/13/19 14:55 Pulse Rate 91 H 88 Pulse Rate [Right Radial] 108 H Respiratory Rate 18 15 16 Blood Pressure [Right Arm] 125/69 96/55 L 100/70 Pulse Oximetry 99 96 99 MDM - Abdominal Pain <JOLENE Ortiz - Last Filed: 12/13/19 16:19> Differential Diagnosis Differential diagnosis: Likely abdominal pain and other (Crohn's, abdominal abscess, lower GIB, infectioius diarrhea) Medical Records Attestation: I reviewed the patient's medical records. Lab Data Attestation: I reviewed the patient's lab results. Result diagrams: 12/13/19 12:18 12/13/19 12:18 Labs: Lab Results 12/13/19 12/13/19 12/13/19 Range/Units 12:18 12:18 12:18 WBC 11.8 H (4.5-11.0) X10^3/uL RBC 4.73 (4.0-5.2) X10^6/uL Hgb 12.5 (12.0-16.0) g/dL Hct 37.6 (36-46) % MCV 79.5 L (80-100) fL MCH 26.5 (26-34) PG MCHC 33.3 (30-36) % RDW 14.6 (11.6-14.8) % Plt Count 481 H (150-400) X10^3/uL Neut % (Auto) 61.7 (50-75) % Lymph % (Auto) 28.7 (25-40) % Grady % (Auto) 7.6 (3-14) % Eos % (Auto) 1.4 L (2-4) % Baso % (Auto) 0.6 (0-2) % Neut # (Auto) 7300 H (9139-1601) /uL Lymph # (Auto) 3400 (2501-0503) /uL Grady # (Auto) 900 (0-900) /uL Eos # (Auto) 200 (0-450) /uL Baso # (Auto) 100 (0-100) /uL Sodium 137 (137-145) mmol/L Potassium 3.5 (3.4-5.1) mmol/L Chloride 103 (98-107) mmol/L Carbon Dioxide 24 (22-32) mmol/L BUN 6 L (7-17) mg/dL Creatinine 0.60 (0.52-1.04) mg/dL Estimated GFR > 60.0 (>60) mL/min BUN/Creatinine Ratio 10.0 (6-22) Glucose 108 H (70-100) mg/dL Lactate (0.7-2.1) mmol/L Calcium 9.8 (8.4-10.2) mg/dL Total Bilirubin 0.3 (0.2-1.3) mg/dL AST 21 (14-36) IU/L ALT 11 (<35) IU/L Alkaline Phosphatase 106 (38-126) U/L Total Protein 7.5 (6.3-8.2) g/dL Albumin 3.8 (3.5-5.0) g/dL Globulin 3.7 (1.7-4.1) g/dL Albumin/Globulin Ratio 1.0 (1.0-2.8) Lipase 26 (23-300) U/L Procalcitonin < 0.05 (<0.5) ng/mL Urine Color Urine Appearance Urine pH (4.5-8.0) Ur Specific [place] (1.000-1.035) Urine Protein (Negative) Urine Glucose (UA) (Negative) g/dL Urine Ketones (NEGATIVE) Urine Occult Blood (Negative) Urine Nitrate (Negative) Urine Bilirubin (NEGATIVE) Urine Urobilinogen (0.2) E.U./dL Ur Leukocyte Esterase (NEGATIVE) Urine RBC (0-5/HPF) Urine WBC (0-5/HPF) Ur Squamous Epith Cells (0-5/HPF) Calcium Oxalate Crystal Urine Bacteria (None) Hyaline Casts (None) Urine Mucus (Negative) Ur Culture Indicated? Urine Test (Negative) 12/13/19 12/13/19 12/13/19 Range/Units 12:18 12:55 12:55 WBC (4.5-11.0) X10^3/uL RBC (4.0-5.2) X10^6/uL Hgb (12.0-16.0) g/dL Hct (36-46) % MCV (80-100) fL MCH (26-34) PG MCHC (30-36) % RDW (11.6-14.8) % Plt Count (150-400) X10^3/uL Neut % (Auto) (50-75) % Lymph % (Auto) (25-40) % Grady % (Auto) (3-14) % Eos % (Auto) (2-4) % Baso % (Auto) (0-2) % Neut # (Auto) (6083-3790) /uL Lymph # (Auto) (8016-3841) /uL Grady # (Auto) (0-900) /uL Eos # (Auto) (0-450) /uL Baso # (Auto) (0-100) /uL Sodium (137-145) mmol/L Potassium (3.4-5.1) mmol/L Chloride (98-107) mmol/L Carbon Dioxide (22-32) mmol/L BUN (7-17) mg/dL Creatinine (0.52-1.04) mg/dL Estimated GFR (>60) mL/min BUN/Creatinine Ratio (6-22) Glucose (70-100) mg/dL Lactate 1.6 (0.7-2.1) mmol/L Calcium (8.4-10.2) mg/dL Total Bilirubin (0.2-1.3) mg/dL AST (14-36) IU/L ALT (<35) IU/L Alkaline Phosphatase (38-126) U/L Total Protein (6.3-8.2) g/dL Albumin (3.5-5.0) g/dL Globulin (1.7-4.1) g/dL Albumin/Globulin Ratio (1.0-2.8) Lipase (23-300) U/L Procalcitonin (<0.5) ng/mL Urine Color Yellow Urine Appearance Clear Urine pH 5.0 (4.5-8.0) Ur Specific [place] 1.025 (1.000-1.035) Urine Protein Trace H (Negative) Urine Glucose (UA) Negative (Negative) g/dL Urine Ketones Trace H (NEGATIVE) Urine Occult Blood Trace-lysed (Negative) Urine Nitrate Negative (Negative) Urine Bilirubin Negative (NEGATIVE) Urine Urobilinogen 0.2 (0.2) E.U./dL Ur Leukocyte Esterase 1+ H (NEGATIVE) Urine RBC 5-10/hpf H (0-5/HPF) Urine WBC 30-100/hpf H (0-5/HPF) Ur Squamous Epith Cells 5-10 /hpf H (0-5/HPF) Calcium Oxalate Crystal Few H Urine Bacteria Moderate (10-30) H (None) Hyaline Casts 5-10/lpf (None) Urine Mucus 1+ H (Negative) Ur Culture Indicated? Specimen cultured Urine Test Negative (Negative) Imaging Data CT scan - abdomen/pelvis: Radiologist's Impression: [address] [address] [address] Scan Report Signed Patient: Zaina Yeboah LMR#: [id number] : 1985Acct:[id number] Age/Sex: 34 / FDate of Service: 12/13/19 Loc: ED Accession Number: [id number] Procedure: CT abdomen pelvis w con Ordering Provider: Renard Lo PROCEDURE: CT ABDOMEN PELVIS W CON INDICATIONS: abdominal pain, diarrhea, crohns flare up for 1 mon TECHNIQUE: After the administration of intravenous contrast, 5 mm thick sections acquired from the diaphragm to the symphysis. 5 mm coronal and sagittal reformats were acquired. For radiation dose reduction, the following was used: automated exposure control, adjustment of mA and/or kV according to patient size. COMPARISON: [facility], MR, MR LUMBAR SPINE WITHOUT CONTRAST, 06/12/2019, 16:39. [facility], CT, CT ABDOMEN PELVIS W CON, 09/15/2018, 11:23. FINDINGS: Image quality: Excellent. ABDOMEN: Lung bases: Mild atelectasis in the right lung. No pleural effusion. Heart size is normal. Solid organs: Liver is normal in size and enhancement. Gallbladder is absent. Biliary system is non dilated. Pancreas enhances normally. Spleen is normal in size and enhancement. Small splenule. No adrenal nodules. Kidneys demonstrate normal size and enhancement, without hydronephrosis. Left kidney is lower pole cortical cyst measuring 8 mm and 53 Hounsfield units, (2/34), previously 5 mm. Left mid kidney cortical cyst measuring 1.5 cm is unchanged and appears simple. Additional subcentimeter cortical hypodensities which are too small to further characterize. Peritoneum and bowel: There is mild increased enhancement and thickening along the proximal transverse colon, (3/21). There is engorgement of the adjacent mesenteric vessels and small pericolonic lymph nodes. This loop of bowel is mildly narrowed but there is no upstream dilatation. There is lipomatous hypertrophy of the fat at the ileocecal valve. The appendix is normal in caliber. No small bowel obstruction. Nodes and vessels: No retroperitoneal or mesenteric adenopathy by size criteria. Small mesorectal and pelvic sidewall lymph nodes are again seen. Aorta and inferior vena cava are normal in size. Miscellaneous: No ventral hernias. PELVIS: Genitourinary: Bladder is decompressed. Uterus is vertically oriented. Miscellaneous: No inguinal hernias or adenopathy. Bones: No suspicious bony lesions. Mild sclerosis at the SI joints, (2/52), more conspicuous. No vertebral body compression fractures. IMPRESSION: 1. Mild thickening and enhancement of the colonic wall at the hepatic flexure. Minimal mesenteric edema and fat stranding. This could be acute on chronic inflammatory change in the proper clinical setting. -Consider MR enterography for further characterization. 2. No free fluid, abscess, OR pneumoperitoneum. 3. Sclerosis at the SI joints may be due to sacroiliitis. 4. Small indeterminate left renal cyst. This is most likely a simple cyst given the presence of additional simple cysts but is incompletely characterized on this exam. The expected T2 hyperintensity on prior lumbar MRI is not appreciated. This also be evaluated on MRI for marked T2 hyperintensity. Renal ultrasound could also be considered for further evaluation. Dictated by: Brian Montoya M.D. on 12/13/2019 at 13:42 Approved by: Brian Montoya M.D. on 12/13/2019 at 14:01 ECG Data Attestation: I personally reviewed and interpreted this ECG as follows: Prior ECG tracings: available for review Interpretation: Sinus bradycardia rate at 54. Normal [place]. MT interval 165, QRS duration 93, QT/QTc 345/[address] elevation or depression. Previous EKG sinus tachycardia in August 2018. [facility] Narrative Medical decision making narrative: Today's white count was decreased to 11.8 from yesterday's 19.3 which was drawn at [facility] after she was seen by GI specialist SHARLA Andrade. Unremarkable chemistry test today. Afebrile with mild tachycardia when she arrived in ED. abdominal exam shows mild discomfort in right upper, periumbilical, left lower quadrant with deep palpation. There is no rebound tenderness, distension. Patient was medicated with Zofran and IV fluid of normal saline while in ED. CT scan does not show abscess, free fluid or and pneumoperitoneum but acute on chronic inflammatory changes on proximal transverse colon. There was mild increase in enhancement and thickening along these areas also engorgement in Dodie mesenteric vessels and small pericolonic lymph nodes. Also there was a incidental finding of small in did terminate left renal cyst with slightly increase in size compared to a few years ago which should be followed up by her PCP late on. Patient was ambulate without lightheadedness, chest pain, breathing difficulty to void. Patient denies urinary symptoms and currently she is taking Levaquin for UTI/pyelonephritis after she was evaluated at [facility]. Urine culture is pending from today's specimen. Patient reports p.m. is currently once a day in the morning. Patient was able to tolerate small sips of liquids before discharged to home. Patient's GI specialist SHARLA Andrade consulted over the phone and advise no new medications at this time but to increase current Pentasa dose. She advised to followed up by GI specialist physician closely. Patient advised to keep her appointment and follow-up with endoscopy and colonoscopy as scheduled. Return precautions were discussed with the patient and patient verbalized understanding and in agreement with the treatment plan. <aPrag Ferris, DO - Last Filed: 12/13/19 16:30> Lab Data Labs: Lab Results 12/13/19 12/13/19 12/13/19 Range/Units 12:18 12:18 12:18 WBC 11.8 H (4.5-11.0) X10^3/uL RBC 4.73 (4.0-5.2) X10^6/uL Hgb 12.5 (12.0-16.0) g/dL Hct 37.6 (36-46) % MCV 79.5 L (80-100) fL MCH 26.5 (26-34) PG MCHC 33.3 (30-36) % RDW 14.6 (11.6-14.8) % Plt Count 481 H (150-400) X10^3/uL Neut % (Auto) 61.7 (50-75) % Lymph % (Auto) 28.7 (25-40) % Grady % (Auto) 7.6 (3-14) % Eos % (Auto) 1.4 L (2-4) % Baso % (Auto) 0.6 (0-2) % Neut # (Auto) 7300 H (6437-1782) /uL Lymph # (Auto) 3400 (8229-3457) /uL Grady # (Auto) 900 (0-900) /uL Eos # (Auto) 200 (0-450) /uL Baso # (Auto) 100 (0-100) /uL Sodium 137 (137-145) mmol/L Potassium 3.5 (3.4-5.1) mmol/L Chloride 103 (98-107) mmol/L Carbon Dioxide 24 (22-32) mmol/L BUN 6 L (7-17) mg/dL Creatinine 0.60 (0.52-1.04) mg/dL Estimated GFR > 60.0 (>60) mL/min BUN/Creatinine Ratio 10.0 (6-22) Glucose 108 H (70-100) mg/dL Lactate (0.7-2.1) mmol/L Calcium 9.8 (8.4-10.2) mg/dL Total Bilirubin 0.3 (0.2-1.3) mg/dL AST 21 (14-36) IU/L ALT 11 (<35) IU/L Alkaline Phosphatase 106 (38-126) U/L Total Protein 7.5 (6.3-8.2) g/dL Albumin 3.8 (3.5-5.0) g/dL Globulin 3.7 (1.7-4.1) g/dL Albumin/Globulin Ratio 1.0 (1.0-2.8) Lipase 26 (23-300) U/L Procalcitonin < 0.05 (<0.5) ng/mL Urine Color Urine Appearance Urine pH (4.5-8.0) Ur Specific [place] (1.000-1.035) Urine Protein (Negative) Urine Glucose (UA) (Negative) g/dL Urine Ketones (NEGATIVE) Urine Occult Blood (Negative) Urine Nitrate (Negative) Urine Bilirubin (NEGATIVE) Urine Urobilinogen (0.2) E.U./dL Ur Leukocyte Esterase (NEGATIVE) Urine RBC (0-5/HPF) Urine WBC (0-5/HPF) Ur Squamous Epith Cells (0-5/HPF) Calcium Oxalate Crystal Urine Bacteria (None) Hyaline Casts (None) Urine Mucus (Negative) Ur Culture Indicated? Urine Test (Negative) 12/13/19 12/13/19 12/13/19 Range/Units 12:18 12:55 12:55 WBC (4.5-11.0) X10^3/uL RBC (4.0-5.2) X10^6/uL Hgb (12.0-16.0) g/dL Hct (36-46) % MCV (80-100) fL MCH (26-34) PG MCHC (30-36) % RDW (11.6-14.8) % Plt Count (150-400) X10^3/uL Neut % (Auto) (50-75) % Lymph % (Auto) (25-40) % Grady % (Auto) (3-14) % Eos % (Auto) (2-4) % Baso % (Auto) (0-2) % Neut # (Auto) (8285-8930) /uL Lymph # (Auto) (7233-3374) /uL Grady # (Auto) (0-900) /uL Eos # (Auto) (0-450) /uL Baso # (Auto) (0-100) /uL Sodium (137-145) mmol/L Potassium (3.4-5.1) mmol/L Chloride (98-107) mmol/L Carbon Dioxide (22-32) mmol/L BUN (7-17) mg/dL Creatinine (0.52-1.04) mg/dL Estimated GFR (>60) mL/min BUN/Creatinine Ratio (6-22) Glucose (70-100) mg/dL Lactate 1.6 (0.7-2.1) mmol/L Calcium (8.4-10.2) mg/dL Total Bilirubin (0.2-1.3) mg/dL AST (14-36) IU/L ALT (<35) IU/L Alkaline Phosphatase (38-126) U/L Total Protein (6.3-8.2) g/dL Albumin (3.5-5.0) g/dL Globulin (1.7-4.1) g/dL Albumin/Globulin Ratio (1.0-2.8) Lipase (23-300) U/L Procalcitonin (<0.5) ng/mL Urine Color Yellow Urine Appearance Clear Urine pH 5.0 (4.5-8.0) Ur Specific [place] 1.025 (1.000-1.035) Urine Protein Trace H (Negative) Urine Glucose (UA) Negative (Negative) g/dL Urine Ketones Trace H (NEGATIVE) Urine Occult Blood Trace-lysed (Negative) Urine Nitrate Negative (Negative) Urine Bilirubin Negative (NEGATIVE) Urine Urobilinogen 0.2 (0.2) E.U./dL Ur Leukocyte Esterase 1+ H (NEGATIVE) Urine RBC 5-10/hpf H (0-5/HPF) Urine WBC 30-100/hpf H (0-5/HPF) Ur Squamous Epith Cells 5-10 /hpf H (0-5/HPF) Calcium Oxalate Crystal Few H Urine Bacteria Moderate (10-30) H (None) Hyaline Casts 5-10/lpf (None) Urine Mucus 1+ H (Negative) Ur Culture Indicated? Specimen cultured Urine Test Negative (Negative) Discharge Plan Departure Patient Disposition: Home Clinical Impression: Exacerbation of Crohn's disease of large intestine Discharge Date/Time: 12/13/19 15:06 Instructions: DI for Crohn's Disease Flare Activity Restrictions/Additional Instructions: You have been diagnosed with [Crohn's flare ups. White count has improved since yesterday and today is 11.8 without other indication of severe infection. Chemistry test was unremarkable. Urine is pending for culture. CT test shows chronic inflammatory changes in colonic wall at the hepatic flexure without free fluid, abscess or pneumoperitoneum. These information has been shared with your GI specialist clinic SHARLA Romero over the phone and results were faxed to their office. She would like you to follow-up with her GI specialist physician in the near future. There is no new medications to go home with today. However increase the Pentasa dose as instructed. According to CT, there was a incidental finding of small indeterminate left renal cyst please follow-up with your primary care physician on this later on.]. What to do: *Take your medications as directed. *Follow up with your primary care provider in 2-3 days, call for an appointment. Let them know you were seen in the ED and that we asked you to be seen in follow up. *Return to ED if you have any new, worsening, or concerning symptoms, such as [fever, chills, rectal bleeding, chest pain, breathing difficulty, unable to tolerate fluids, severe pain or any acute concerns]. Prescriptions: No Action cetirizine 10 mg tablet 10 mg PO DAILY RF: 0 Pentasa 500 mg capsule, extended release 1,000 mg PO TID RF: 0 prochlorperazine maleate 10 mg tablet 10 mg PO Q8H PRN (Reason: Headache) RF: 0 diphenhydramine HCl 25 mg Capsule 25 - 50 mg PO BID PRN (Reason: Headache) RF: 0 ergocalciferol (vitamin D2) [Vitamin D2] 50,000 unit Capsule 50,000 units PO QWEEK RF: 0 albuterol sulfate [ProAir HFA] 90 mcg/actuation HFA aerosol inhaler 2 puff Inhalation Q4H PRN (Reason: Wheezing) RF: 0 topiramate [Topamax] 50 mg Tablet 50 mg PO BID RF: 0 budesonide-formoterol [Symbicort] 160-4.5 mcg/actuation Hfa Aerosol Inhaler 2 puff INHALATION BID RF: 0 hydrocodone-acetaminophen 10-325 mg tablet 1 tab PO Q6H PRN (Reason: Pain, Moderate (4-6)) RF: 0 Referrals: Deborah Rosa PA-C [Primary Care Provider] - Earl Velazquez MD [Non-Staff] -
[2019-12-13 13:14] LABS: Procalcitonin < 0.05 ng/mL (<0.5)
[2019-12-13 13:22] LABS: Bacteria Urine Moderate (10-30); Calcium Oxalate Crystals Urine Few; Culture Indicated Urine Specimen Cultured; Hyaline Casts Urine 5-10/LPF; Mucus Urine 1+ (Negative); RBC Urine 5-10/HPF (0-5/HPF); Squamous Epithelial Cell Urine 5-10 /HPF (0-5/HPF); WBC Urine 30-100/HPF (0-5/HPF)
[2019-12-13 13:59] VITALS: BP 96/55; PULSE 91; RESP 15; O2SAT 96
[2019-12-13] MEDS: POTASSIUM CHLORIDE 20 MEQ TAB PO (14:08)
[2019-12-13 14:55] VITALS: BP 100/70; PULSE 88; RESP 16; O2SAT 99
== END 2019-12-13 15:06 | disposition home or self-care (01) ==
PROVIDERS: Emergency Provider Nurse Practitioner Family; PCP Physician Assistant
DX: K50.10 Crohn's disease of large intestine without complications (principal); R42 Dizziness and giddiness; R53.1 Weakness; R79.89 Other specified abnormal findings of blood chemistry
CPT/HCPCS: 36415; 74177; 80053; 81001; 81025; 83605; 83690; 84145; 85025; 87077; 87086; 93005; 96361; 96374; 99284; 99285; J2405; Q9967